=== PATIENT | female | born 1955 | race Caucasian/White ===

== ENCOUNTER → 2018-09-03 14:20 | Outpatient (CLI) | payer BC, SELFPAY ==
--- NOTE | 2018-09-03 14:22 | BI_ITS ---
MAMMOGRAPHY - BILATERAL SCREENING REASON FOR EXAM: Female, 62 years old. Routine annual screening examination. PERTINENT HISTORY: Mother with breast cancer. Aunt with breast cancer. Prior right excisional breast biopsy and right stereotactic breast biopsy. TECHNIQUE: Digital bilateral breast derick (3D mammographic acquisition) in the CC and MLO projections. 2-D mediolateral oblique (MLO) and craniocaudad (CC) views of both breasts were obtained. CAD: Full Field Digital Mammography with Computer Added Detection was performed. COMPARISON: Comparison is made with prior study date is February 15, 2017 and April 27, 2015. FINDINGS: Breast Composition: There are scattered areas of fibroglandular density. There are no dominant masses or suspicious calcifications. Once again, a tissue clip marker is seen within a small nodular density in the upper lateral aspect of the right breast. A tissue clip marker is also seen in the superior retroareolar region of the right breast. There has been no change. Stable appearance of the right axillary lymph nodes. No other significant abnormalities are identified. There has been no significant change since the prior study. BI/SCREENING MAMM (CAD), BILAT IMPRESSION: Stable bilateral screening mammogram. Yearly follow-up mammogram recommended. (A) ASSESSMENT CATEGORY: BIRADS Category 2: Benign. A letter regarding these results will be sent to the patient by the facility within 30 days. Approximately 10% of breast cancers are not detected by mammography. A normal mammogram should not delay biopsy of a clinically suspicious abnormality. [id number] Electronically Signed: Ej Mckeon, at 8:28 EDT , Service support ,
== END ==
PROVIDERS: Family Provider Family Medicine; PCP Family Medicine; Visit Provider Family Medicine
DX: Z12.31 Encounter for screening mammogram for malignant neoplasm of breast (principal)
CPT/HCPCS: 77063; 77067

== ENCOUNTER → 2020-03-30 15:55 | Outpatient (CLI) | payer MEDICARE, OTHER, SELFPAY ==
[2020-03-30 15:32] VITALS: BMI 25.9
[2020-03-30 17:23] LABS: Calcium,Total 11.9 mg/dL (8.5-10.1)
[2020-03-30 17:30] LABS: Vitamin D,25 Hydroxy 34.6 ng/mL
== END ==
PROVIDERS: PCP Family Medicine; Referring Provider Internal Medicine Endocrinology, Diabetes & Metabolism; Visit Provider Internal Medicine Endocrinology, Diabetes & Metabolism
DX: E21.3 Hyperparathyroidism, unspecified (principal); E55.9 Vitamin D deficiency, unspecified
CPT/HCPCS: 36415; 82306; 82310

== ENCOUNTER → 2020-04-22 13:24 | Outpatient (CLI) | payer MEDICARE, OTHER, SELFPAY ==
[2020-03-30 15:32] VITALS: BMI 25.9
[2020-04-22] MEDS: 0.9% NaCl Peripheral Flush Adult/Peds IV (13:35)
[2020-04-22] MEDS: 0.9% NaCl IVPB Med Flush (250 mL) 15 ML IV (13:35)
[2020-04-22 13:38] VITALS: BP 137/74; PULSE 95; RESP 18; TEMP 36.4; O2SAT 96; BMI 26.1
[2020-04-22] MEDS: Zoledronic Acid 5 MG 100 ML 300 MG IV (14:11)
[2020-04-22 14:35] VITALS: BP 130/70; PULSE 80; RESP 18; TEMP 36; O2SAT 98
== END ==
PROVIDERS: PCP Family Medicine; Referring Provider Internal Medicine Endocrinology, Diabetes & Metabolism; Visit Provider Internal Medicine Endocrinology, Diabetes & Metabolism
DX: E83.52 Hypercalcemia (principal)
CPT/HCPCS: 96365; J7050; A4216; J3489

== ENCOUNTER → 2021-03-02 11:05 | Outpatient (CLI) | payer MEDICARE, OTHER, SELFPAY ==
[2021-03-02 13:04] LABS: Vitamin D,25 Hydroxy 35.6 ng/mL
[2021-03-02 13:12] LABS: ALB/GLOB Ratio 1.2 RATIO (0.9-2.4); AST(SGOT) 24 U/L (15-37); Alanine Aminotransfer ALT/SGPT 42 U/L (13-56); Albumin, Serum 4.3 g/dL (3.2-5.0); Alkaline Phosphatase 39 U/L (45-117); Anion Gap 8 (5-15); BUN 10 mg/dL (7-18); BUN/Creat Ratio 9.8 RATIO (10-20); Calcium,Total 10.1 mg/dL (8.5-10.1); Chloride 101 mmol/L (98-107); Creatinine, Serum 1.02 mg/dL (0.55-1.02); EST Glomerular Filtration Rate 57 mL/min (>60); Est Glom Filt Rate - Afr Amer 69 mL/min (>60); Globulin 3.7 g/dL (2.2-4.2); Glucose 153 mg/dL (74-106); Potassium 4.3 mmol/L (3.5-5.1); Sodium Level 134 mmol/L (136-145)
[2021-03-02 13:13] LABS: PTHIN 68.2 pg/mL (18.4-80.1)
== END ==
PROVIDERS: PCP Family Medicine; Referring Provider Internal Medicine Endocrinology, Diabetes & Metabolism; Visit Provider Internal Medicine Endocrinology, Diabetes & Metabolism
DX: E21.3 Hyperparathyroidism, unspecified (principal); E55.9 Vitamin D deficiency, unspecified
CPT/HCPCS: 36415; 80053; 82306; 83970

== ENCOUNTER 2021-04-29 10:22 | Inpatient (IN) | payer MEDICARE, OTHER, SELFPAY ==
[2021-04-29] VITALS (11 sets, daily range): BP systolic 113–162; BP diastolic 59–89; PULSE 84–125; RESP 16–18; TEMP 36.6–37.1; O2SAT 94–99; BMI 25.7; BMI 26.0
--- NOTE | 2021-04-29 11:27 | CT_ITS ---
STUDY: CT BRAIN WITHOUT CONTRAST REASON FOR EXAM: Female, 65 years old. confusion RADIATION DOSAGE (If Supplied By Facility): CTDIvol = ( 44.99 ) mGy, DLP = ( 779.24 ) mGycm TECHNIQUE: Transaxial CT imaging of the brain was performed without administration of intravenous contrast material. Individualized dose optimization techniques were used for this CT. COMPARISON: No relevant priors. FINDINGS: Normal soft tissue structures. Normal calvarium. There is mild cerebral atrophy with widening of the extra-axial spaces and ventricular dilatation. There are areas of decreased attenuation within the white matter tracts of the supratentorial brain, consistent with microvascular disease changes. Normal basal ganglia and thalami. Normal brainstem. Normal cerebellum. There is no intracranial hemorrhage. Focal area of diminished density and loss of perez-white differentiation in the left posterior parietal lobe. No associated hemorrhage. Normal visualized paranasal sinuses. CT/Brain/Head without Contrast IMPRESSION: 1. Posterior left MCA territory subacute or chronic infarction without hemorrhage. No prior comparison study. 2. Central parenchymal volume loss. White matter changes that are nonspecific but most commonly associated with chronic small vessel ischemic disease. Electronically Signed: Vega Cuadra MD ([place]) at 12:39 EST , Service support ,
--- NOTE | 2021-04-29 11:31 | EKG12_ITS ---
Test Reason : Blood Pressure : / mmHG Vent. Rate : 096 BPM Atrial Rate : 096 BPM P-R Int : 158 ms QRS Dur : 116 ms QT Int : 374 ms P-R-T Axes : 070 -23 075 degrees QTc Int : 472 ms Normal sinus rhythm Normal ECG Confirmed by NIALL ZAMARRIPA MD ([id number]), school photograph editor RICARDO KUMAR ([id number]) on 05/03/2021 8:54:14 AM Referred By: NAGI Confirmed By:NIALL ZAMARRIPA MD
--- NOTE | 2021-04-29 11:36 | EDS_ITS ---
HPI History of Present Illness Chief Complaint: Confusion Informant: patient Onset/Context/Timing Onset: Days (5) Context: Gradual Onset Timing: Continuous Quality and Location: Positive for Slurred Speech and - (confused) Onset: gradually Current Severity: Severe Maximum Severity: Severe Worsened by: n/a Relieved by: n/a Associated Symptoms Associated Symptoms: Positive for Headache and Chest Pain (a little bit but unk when; not now); Negative for Nausea and Vomiting Narrative Narrative: Patient has had some trouble speaking and has been confused for the past 5 days. This is her first visit to a healthcare provider for this issue. History is limited due to the patient being confused with most questions even review of systems. Patient lives with her who noticed it first. Daughter accompanies, she states she last saw her normal 7 days ago, and then the first time she saw her abnormal was just 2 days ago. She states she had surgery on her parathyroid glands 5 months ago or so and has been on thyroid medication. [facility] Medical History (Updated 04/29/21 @ 13:[address] Fabio Piper MD) Arthritis Breast cyst High cholesterol High triglycerides Hypothyroidism Type 2 diabetes mellitus without complications Home Medications cholecalciferol (vitamin D3) 50 mcg (2,000 unit) capsule 50 mcg PO DAILY 03/30/20 [History Last Taken Unknown] fenofibrate micronized 134 mg capsule 134 mg PO DAILY 03/30/20 [History Last Taken Unknown] glipizide 2.5 mg tablet, extended release 24 hr 2.5 mg PO DAILY 03/30/20 [History Last Taken Unknown] levothyroxine 150 mcg tablet 150 mcg PO DAILY 03/30/20 [History Last Taken Unknown] lisinopril 5 mg tablet 5 mg PO DAILY 03/30/20 [History Last Taken Unknown] metformin 1,000 mg tablet 1,000 mg PO BID 03/30/20 [History Last Taken Unknown] simvastatin 40 mg tablet 40 mg PO DAILY 03/30/20 [History Last Taken Unknown] zoledronic acid 5 mg/100 mL in mannitol 5 %-water intravenous piggybck 1 ea .ROUTE ONCE #100 ml 04/20/20 [Rx Last Taken Unknown] Allergy/AdvReac Type Severity Reaction Status Date / Time No Known Allergies Allergy Verified 04/29/21 10:26 Family History Sister Thyroid disorder Cancer Diabetes Brother Myocardial infarction Bleeding disorder Cancer Diabetes Mother Breast cancer Other Arthritis Colon cancer Heart disease High cholesterol Surgical History History of appendectomy Social History Smoking Status: Light Smoker (<10/day) alcohol intake: current substance use type: does not use what type of physical activity do you participate in: none ROS ROS ED Review of Systems ROS Unobtainable: due to mental status Constitutional Constitutional ED: Denies chills or fever(s) Eyes Eyes: Denies change in vision or diplopia Cardiovascular Cardiovascular: Reports as per HPI and chest pain Respiratory/Chest Respiratory/Chest: Reports cough; Denies dyspnea Gastrointestinal Gastrointestinal: Denies abdominal pain, nausea or vomiting Genitourinary Genitourinary ED: Denies dysuria or hematuria Musculoskeletal Musculoskeletal: Denies back pain or neck pain Integumentary Denies abscess or rash Neurologic Neurologic: Reports headache(s); Denies paresthesias or weakness Psychiatric Psychiatric: Denies suicidal thoughts EXAM Physical Exam Const Vital Signs: 04/29/21 10:23 04/29/21 12:46 04/29/21 13:25 Temperature 98 F 98.2 F 98.2 F Temperature Source Temporal Oral Oral Pulse Rate 125 H 89 Respiratory Rate 18 17 Blood Pressure 162/89 H 113/83 H Blood Pressure Mean 113 93 Pulse Ox 97 97 99 Oxygen Delivery Method Room Air Room Air Room Air Positive well nourished and well developed General Appearance ED: well developed and NAD HEENT Reports moist mucous membranes normocephalic and atraumatic Eyes PERRL and EOMs intact bilaterally Neck full ROM, No nuchal rigidity, no lymphadenopathy, supple and no meningeal signs Resp normal respiratory effort and clear to auscultation bilaterally Cardio regular rate, regular rhythm and no murmurs Rate: tachycardic GI non-tender and non-distended Auscultation: normoactive bowel sounds Palpation: soft Back/Spine no CVA tenderness General Back: other FROM Extremity normal to inspection General Extremety ED: Negative for edema, pulses abnormal or tenderness General Extremity: Negative for edema or pulses abnormal Neuro CN's II-XII intact bilaterally and no sensory deficits noted Neuro Narrative: Mild expressive aphasia and dysarthria Sensorium / Orientation: awake, alert and oriented to person; Negative for oriented to time Motor Exam: strength 5/5 throughout Skin no rashes or lesions noted and no wounds STROKE Vital Signs/Narrative: Vital Signs Temp Pulse Resp BP Pulse Ox 04/29/21 13:25 98.2 F 89 17 113/83 H 99 04/29/21 12:46 98.2 F 97 04/29/21 10:23 98 F 125 H 18 162/89 H 97 NIHSS Initial: 1a Level of Consciousness: 0 1b LOC Questions (Score 2 if aphasic/stupor): 2 1c LOC Commands (Only score 1st attempt): 0 2 Best Gaze (If aphasic, use reflexive mvmts.): 0 3 Visual: 0 4 Facial Palsy: 0 5 Motor Arm Right (UN = amputation/fusion): 0 5 Motor Arm Left: 0 6 Motor Leg Right: 0 6 Motor Leg Left: 0 7 Limb ataxia (Only + if out of proportion): 0 8 Sensory (Aphasia/stupor=0 or 1, coma=2): 0 9 Best Language: 1 10 Dysarthria (mute, coma=2, intubated=UN): 1 11 Extinction and Inattention (only scored if +): 0 Total Score: 4 MDM MDM MDM Narrative Medical decision making narrative: CT shows left posterior MCA infarct which is likely causing these symptoms. No signs of any acute infection causing sepsis although her lactate was nonspecifically elevated. Will admit for further care and diagnostics. Lab Data Attestation: I reviewed the patient's lab results. Labs: Laboratory Results - last 24 hr 04/29/21 04/29/21 04/29/21 12:15 12:15 12:15 WBC 10.3 RBC 4.28 Hgb 10.7 L Hct 34.9 L MCV 81.5 MCH 25.0 L MCHC 30.7 L RDW Std Deviation 49.1 H RDW Coeff of Apple 16.8 H Plt Count 501 H MPV 9.4 Immature Gran % (Auto) 0.500 Neut % (Auto) 70.7 H Lymph % (Auto) 21.6 Stephens % (Auto) 6.0 Eos % (Auto) 0.7 Baso % (Auto) 0.5 Absolute Neuts (auto) 7.3 Absolute Lymphs (auto) 2.22 Nucleated RBC % 0 PT 12.0 INR 0.9 APTT 27.4 Sodium 132 L Potassium 3.9 Chloride 99 Carbon Dioxide 25.0 Anion Gap 8 BUN 11 Creatinine 1.10 H Estim Creat Clear Calc 44.66 Est GFR (MDRD) Af Amer 64 Est GFR (MDRD) Non-Af 53 L BUN/Creatinine Ratio 10.0 Glucose 160 H Lactic Acid Calcium 10.2 H Total Bilirubin 0.40 AST 24 ALT 34 Alkaline Phosphatase 37 L Troponin I High Sens 4 Total Protein 7.9 Albumin 4.2 Globulin 3.7 Albumin/Globulin Ratio 1.1 TSH 0.30 L Urine Color Urine Clarity Urine pH Ur Specific [place] Urine Protein Urine Glucose (UA) Urine Ketones Urine Occult Blood Urine Nitrite Urine Bilirubin Urine Urobilinogen Ur Leukocyte Esterase Urine RBC Urine WBC Ur Squamous Epith Cells Urine Bacteria Urine Mucus 04/29/21 04/29/21 12:15 12:15 WBC RBC Hgb Hct MCV MCH MCHC RDW Std Deviation RDW Coeff of Apple Plt Count MPV Immature Gran % (Auto) Neut % (Auto) Lymph % (Auto) Stephens % (Auto) Eos % (Auto) Baso % (Auto) Absolute Neuts (auto) Absolute Lymphs (auto) Nucleated RBC % PT INR APTT Sodium Potassium Chloride Carbon Dioxide Anion Gap BUN Creatinine Estim Creat Clear Calc Est GFR (MDRD) Af Amer Est GFR (MDRD) Non-Af BUN/Creatinine Ratio Glucose Lactic Acid 3.7 H* Calcium Total Bilirubin AST ALT Alkaline Phosphatase Troponin I High Sens Total Protein Albumin Globulin Albumin/Globulin Ratio TSH Urine Color Yellow Urine Clarity Clear Urine pH 6.0 Ur Specific [place] 1.020 Urine Protein 15 H Urine Glucose (UA) Normal Urine Ketones Negative Urine Occult Blood 10 H Urine Nitrite Positive H Urine Bilirubin Negative Urine Urobilinogen Normal Ur Leukocyte Esterase 100 H Urine RBC 0 SEEN Urine WBC 0-5 SEEN Ur Squamous Epith Cells 0 SEEN Urine Bacteria 2+ Urine Mucus 0 SEEN Radiography Diagnostic Testing: Clinical Impression(s) from Imaging Studies Brain CT 04/29/21 11:27 IMPRESSION: 1. Posterior left MCA territory subacute or chronic infarction without hemorrhage. No prior comparison study. 2. Central parenchymal volume loss. White matter changes that are nonspecific but most commonly associated with chronic small vessel ischemic disease. Electronically Signed: Vega Cuadra MD ([place]) at 12:39 EST , Service support , Chest X-Ray 04/29/21 12:30 IMPRESSION: Nonacute portable x-ray examination of the chest. Electronically Signed: Vega Cuadra MD ([place]) at 12:43 EST , Service support , EKG Initial EKG: Attestation: I personally reviewed and interpreted this EKG as follows: Interpretation: Sinus Rhythm and No Acute Injury Pattern Comments: normal EKG Stroke Documentation Questions Stroke Team Activated: No (timing) IV Alteplase (t-PA) Administered: No (timing) Discharge Plan Dx/Rx/DC Orders Clinical Impression: Acute ischemic stroke Disposition Disposition: Acute Care Hospital [facility]
--- NOTE | 2021-04-29 12:09 | CM.ED ---
Addendum entered by Barbara Loving 04/29/21 19:47: Visitor in the room was patient's daughter. Barbara AVILES Original Note: LILIANA Note Referral Reason: No PCP Referral Source: Case Find SW met with patient. Per visitor in the room with patient, the PCP who patient had gone to, Dr. Dill, had retired so patient does not have a PCP. LILIANA provided patient with a 2020 Healthcare Provider. Plan:Provided with 2020 [facility] Healthcare Provider Directory Barbara AVILES
--- NOTE | 2021-04-29 12:30 | RAD_ITS ---
STUDY: X-RAY CHEST REASON FOR EXAM: Female, 65 years old. CONFUSION STARTING LAST WEEK AND GETTING WORSE TECHNIQUE: AP COMPARISON: None. FINDINGS: The lungs are clear and expanded. There is no demonstrated pleural abnormality. Normal size heart. Normal mediastinum and hetal. Normal visualized pulmonary arteries. There is atherosclerotic calcification of the aortic arch with tortuosity. Normal visualized thoracic spine. Normal visualized ribs, clavicles, and shoulders. There is no demonstrated abnormality of the visualized soft tissue structures of the upper abdomen. RAD/Chest 1 View (Portable) IMPRESSION: Nonacute portable x-ray examination of the chest. Electronically Signed: Vega Cuadra MD ([place]) at 12:43 EST , Service support ,
[2021-04-29 12:44] LABS: Mucous, Urine 0 SEEN /hpf (<or=2+); Red Blood Cells-Urine 0 SEEN /hpf (0-5); Squamous Epithelial Cells - UA 0 SEEN /hpf (5-10)
[2021-04-29] MEDS: 0.9% Normal Saline 1,000 ML 150 ML IV (12:46)
[2021-04-29 12:50] LABS: Absolute Lymphocyte Count 2.22 X10^3/uL (0.83-4.51); Absolute Neutrophil Count 7.3 X10^3/uL (2.0-7.7); Basophil# 0.05 X10^3/uL; Basophil% 0.5 % (0-1); Eosinophil# 0.07 X10^3/uL; Eosinophils% 0.7 % (0-5); Hematocrit 34.9 % (37-47); Hemoglobin 10.7 g/dL (12.0-15.0); Lymphocyte # 2.22 X10^3/ul (0.83-4.51); Lymphocyte % 21.6 % (19-41); Mean Corp Hgb Conc 30.7 g/dL (32-36); Mean Corpuscular Volume 81.5 fL (81-99); Mean Platelet Vol. 9.4 fl (6.2-12.0); Monocyte# 0.62 X10^3/uL; NRBC Flagged by Analyzer 0 % (0-5); Neutrophil # 7.29 X10^3/uL (2.7-7.7); Neutrophil % 70.7 % (47-70); Platelet Count 501 K/mm3 (150-450); RBC Distribution Width CV 16.8 % (11.6-14.6); RBC Distribution Width SD 49.1 fl (35.1-43.9); Red Blood Count 4.28 M/mm3 (4.2-5.4); White Blood Count 10.3 K/mm3 (4.4-11.0)
[2021-04-29 12:55] LABS: International Normalized Ratio 0.9
[2021-04-29 12:56] LABS: Color, Urine Yellow (Yellow); Glucose, Dipstick Normal (Normal); Ketone-Dipstick Negative (Negative); Leukocyte Esterase-Dipstick 100 /ul (Negative); Nitrite-Dipstick Positive (Negative); Occult Blood-Urine 10 /ul (Negative); Partial Thromboplast Time 27.4 Seconds (24.1-36.2); Protein-Dipstick 15 mg/dl (Negative); Urine Bilirubin Dipstick Negative (Negative); Urine Clarity Clear (Clear); Urine Urobilinogen Normal (Normal)
[2021-04-29 12:59] LABS: Bacteria 2+ /hpf (None Seen); White Blood Cells 0-5 SEEN /hpf (0-5)
[2021-04-29 13:01] LABS: Lactic Acid 3.7 mmol/L (0.4-1.9)
[2021-04-29 13:13] LABS: ALB/GLOB Ratio 1.1 RATIO (0.9-2.4); AST(SGOT) 24 U/L (15-37); Alanine Aminotransfer ALT/SGPT 34 U/L (13-56); Albumin, Serum 4.2 g/dL (3.2-5.0); Alkaline Phosphatase 37 U/L (45-117); Anion Gap 8 (5-15); BUN 11 mg/dL (7-18); Calcium,Total 10.2 mg/dL (8.5-10.1); Chloride 99 mmol/L (98-107); EST Glomerular Filtration Rate 53 mL/min (>60); Est Glom Filt Rate - Afr Amer 64 mL/min (>60); Estimated Creatinine Clearance 44.66 ml/min; Globulin 3.7 g/dL (2.2-4.2); Glucose 160 mg/dL (74-106); Potassium 3.9 mmol/L (3.5-5.1); Protein, Total 7.9 g/dL (6.4-8.2); Sodium Level 132 mmol/L (136-145); Troponin-I HS 4 pg/mL (3.0-54.0)
--- NOTE | 2021-04-29 13:28 | HP.PCM.HOS_ITS ---
HPI - General General Date of Admission: 04/29/21 Date of Service: 04/29/21 Chief Complaint: Confusion. HPI Narrative The patient is a 65 y/o F w/ PMHx: Diabetes mellitus type II, HTN, HLD, Hx parathyroidectomy w/ Hypothyroidism who presents to the [facility] ED on 04/29/21 with history of onset confusion, expressive aphasia, dysarthria and confusion which started this prior Sunday and became progressively more pronounced when family eventually convinced her to present to the ED for evaluation. In the ED she is able to answer questions but appears extremely frustrated and has word finding difficulties. Patient does report that she has a mild dull constant generalized headache over the last week. Work-up in the ED included T 98, heart rate initially 125 with most recent repeat 89, BP initially 162/89 with most recent repeat 113/83, respiratory rate 18, 97 to 99% on room air, unremarkable coags, CMP with sodium 132, BUN/creatinine 11/1.10, glucose 160, lactic acid 3.7, calcium 10.2, alk phos 37 otherwise not marked appearing, high-sensitivity initial troponin 4, TSH 0.30, urinalysis with specific gravity elevated 1.020, protein 15, negative ketone, occult blood 10, positive nitrate, 100 leukocyte esterase with 0-5 urine WBCs with 2+ urine bacteria, blood culture x2 pending per ED, urine culture pending per ED, negative rapid Covid antigen, negative rapid influenza, chest x-ray with no acute cardiopulmonary findings, CT head with posterior left MCA territory subacute or chronic infarction without hemorrhage with no comparison, central parenchymal volume loss with white matter changes nonspecific but commonly associate with chronic small vessel ischemic disease. Initial ED NIHSS 4 for LOC questions, Best language as well as dysarthria. [facility] Medical History (Updated 04/29/21 @ 14:[address] Chio Valero MD) Arthritis Breast cyst High cholesterol High triglycerides HTN (hypertension) Hypothyroidism Tobacco use Type 2 diabetes mellitus without complications Home Medications cholecalciferol (vitamin D3) 50 mcg (2,000 unit) capsule 50 mcg PO DAILY 03/30/20 [History Last Taken Unknown] fenofibrate micronized 134 mg capsule 134 mg PO DAILY 03/30/20 [History Last Taken Unknown] glipizide 2.5 mg tablet, extended release 24 hr 2.5 mg PO DAILY 03/30/20 [History Last Taken Unknown] levothyroxine 150 mcg tablet 150 mcg PO DAILY 03/30/20 [History Last Taken Unknown] lisinopril 5 mg tablet 5 mg PO DAILY 03/30/20 [History Last Taken Unknown] metformin 1,000 mg tablet 1,000 mg PO BID 03/30/20 [History Last Taken Unknown] simvastatin 40 mg tablet 40 mg PO DAILY 03/30/20 [History Last Taken Unknown] zoledronic acid 5 mg/100 mL in mannitol 5 %-water intravenous piggybck 1 ea .ROUTE ONCE #100 ml 04/20/20 [Rx Last Taken Unknown] Allergy/AdvReac Type Severity Reaction Status Date / Time No Known Allergies Allergy Verified 04/29/21 10:26 Family History Sister Thyroid disorder Cancer Diabetes Brother Myocardial infarction Bleeding disorder Cancer Diabetes Mother Breast cancer Other Arthritis Colon cancer Heart disease High cholesterol other (Patient denies any marked paternal family history including HD, DM, CA.) Surgical History (Updated 04/29/21 @ 14:[address] Chio Valero MD) History of appendectomy S/P parathyroidectomy Social History (Updated 04/29/21 @ 14:[address] Chio Valero MD) household members: spouse Smoking Status: Current every day smoker tobacco type: cigarettes Smoking packs per day: 0.75 Smoking cigarettes per day: 15.0 alcohol intake: current alcohol intake frequency: holidays/special occasions only substance use type: does not use what type of physical activity do you participate in: none ROS ROS Narrative Admission Review of Systems: CONSTITUTIONAL: No weight loss, fever, chills, weakness or fatigue. HEENT: + Headache. Eyes: No visual loss, blurred vision, double vision or yellow sclerae. Ears, Nose, Throat: No hearing loss, sneezing, congestion, runny nose or sore throat. SKIN: No rash or itching, lesions, wounds. CARDIOVASCULAR: No chest pain, chest pressure or chest discomfort, palpitations, edema, orthopnea, syncopal events. RESPIRATORY: No shortness of breath, cough or sputum, wheezing, hemoptysis. GASTROINTESTINAL: + anorexia, No nausea, vomiting or diarrhea, abdominal pain, melena, BRBPR. GENITOURINARY: No dysuria, frequency, urgency or retention. NEUROLOGICAL: + Expressive aphasia, altered speech, confusion, headache, No dizziness, syncope, paralysis, ataxia, numbness or tingling in the extremities, focal weakness, change in bowel or bladder control, seizure. MUSCULOSKELETAL: + muscle, back pain, joint pain or stiffness. HEMATOLOGIC: + anemia, bleeding or bruising. LYMPHATICS: No enlarged nodes. No history of splenectomy. PSYCHIATRIC: No history of depression or anxiety. ENDOCRINOLOGIC: No reports of sweating, cold or heat intolerance. No polyuria or polydipsia. ALLERGIES: No history of asthma, hives, eczema or rhinitis. Vital Signs Vital Signs Vital Signs: 04/29/21 10:23 04/29/21 12:46 04/29/21 13:25 Temperature 98 F 98.2 F 98.2 F Temperature Source Temporal Oral Oral Pulse Rate 125 H 89 Respiratory Rate 18 17 Blood Pressure 162/89 H 113/83 H Blood Pressure Mean 113 93 Pulse Ox 97 97 99 Oxygen Delivery Method Room Air Room Air Room Air Weight Weight: 155 lb Body Mass Index (BMI) 25.7 Physical Exam Narrative Physical Examination: General: Awake, alert, oriented x 3 but it does take her a significant amount of time to give answers with notable expressive aphasia, mildly stuttered/altered speech, remains cooperative, following commands, seated upright in the ED bed, tearful with her difficulty with her words. Skin: Normal color, normal turgor, no icterus, no cyanosis. HEENT: AT/NC, EOMI, PERRLA, dry MM, no carotid bruits or JVD noted. Lungs: CTA bilaterally, moderate effort, mild decrease BL bases, no rales, ronchi or wheezing. Heart: Regular rate and rhythm; no gallop, rub audible. Abdomen: Soft, overweight, NTTP, ND, normal BS, no HSM. Extremities: No cyanosis, clubbing, or edema. Neurological: Patient awake, alert, oriented as noted, cognitive function not baseline intact; pupils equally reactive to light and accommodation, cranial nerves II-XII grossly normal, moving all 4 extremities, no focal deficits, strength preserved, FTN and HTS appropriate, denies any subjective paresthesia/numbness, notable expressive aphasia, stuttering/slurred speech. Psychiatric: Affect appears frustrated, no acute evidence of depressive or anxiety feelings. Results Lab / Micro Data Result Diagrams: 04/29/21 12:15 04/29/21 12:15 Labs: Laboratory Results - last 24 hr 04/29/21 12:15: WBC 10.3, RBC 4.28, Hgb 10.7 L, Hct 34.9 L, MCV 81.5, MCH 25.0 L , MCHC 30.7 L, RDW Std Deviation 49.1 H, RDW Coeff of Apple 16.8 H, Plt Count 501 H, MPV 9.4, Immature Gran % (Auto) 0.500, Neut % (Auto) 70.7 H, Lymph % (Auto) 21.6, [place] % (Auto) 6.0, Eos % (Auto) 0.7, Baso % (Auto) 0.5, Absolute Neuts (auto) 7.3, Absolute Lymphs (auto) 2.22, Nucleated RBC % 0 04/29/21 12:15: PT 12.0, INR 0.9, APTT 27.4 04/29/21 12:15: Sodium 132 L, Potassium 3.9, Chloride 99, Carbon Dioxide 25.0, Anion Gap 8, BUN 11, Creatinine 1.10 H, Estim Creat Clear Calc 44.66, Est GFR (MDRD) Af Amer 64, Est GFR (MDRD) Non-Af 53 L, BUN/Creatinine Ratio 10.0, Glucose 160 H, Calcium 10.2 H, Total Bilirubin 0.40, AST 24, ALT 34, Alkaline Phosphatase 37 L, Troponin I High Sens 4, Total Protein 7.9, Albumin 4.2, Globulin 3.7, Albumin/Globulin Ratio 1.1, TSH 0.30 L 04/29/21 12:15: Lactic Acid 3.7 H* 04/29/21 12:15: Urine Color Yellow, Urine Clarity Clear, Urine pH 6.0, Ur Specific [place] 1.020, Urine Protein 15 H, Urine Glucose (UA) Normal, Urine Ketones Negative, Urine Occult Blood 10 H, Urine Nitrite Positive H, Urine Bilirubin Negative, Urine Urobilinogen Normal, Ur Leukocyte Esterase 100 H, Urine RBC 0 SEEN, Urine WBC 0-5 SEEN, Ur Squamous Epith Cells 0 SEEN, Urine Bacteria 2+, Urine Mucus 0 SEEN Micro: Microbiology 04/29/21 12:02 Mucosa - Nasopharyngeal Influenza Types A,B Direct FA (TALA) - Final 04/29/21 12:02 Nasal Secretion SARS-CoV-2 Antigen (Rapid) - Final Radiology Impression Brain CT 04/29/21 11:27 IMPRESSION: 1. Posterior left MCA territory subacute or chronic infarction without hemorrhage. No prior comparison study. 2. Central parenchymal volume loss. White matter changes that are nonspecific but most commonly associated with chronic small vessel ischemic disease. Electronically Signed: Vega Cuadra MD (Brooks) at 12:39 EST , Service support , Chest X-Ray 04/29/21 12:30 IMPRESSION: Nonacute portable x-ray examination of the chest. Electronically Signed: Vega Cuadra MD (Brooks) at 12:43 EST , Service support , Assessment & Plan Assessment/Plan (1) Acute ischemic stroke: PLAN: The patient is a 65 y/o F w/ PMHx: Diabetes mellitus type II, HTN, HLD, Hx parathyroidectomy w/ Hypothyroidism who presents to the [facility] ED on 04/29/21 with history of onset confusion, expressive aphasia, dysarthria and c onfusion which started this prior Sunday and became progressively more pronounced when family eventually convinced her to present to the ED for evaluation. #1. Acute Encephalopathy, Expressive Aphasia, Dysarthria, Multifactorial, secondary to #1 Subacute Posterior left MCA territory and #2: Will admit to PCU, will obtain MRI Brain, MRA Head and carotid US, ECHO, PT/OT/Speech/Nutrition evaluation per protocol. Will consult Neurology for evaluation once further work-up completed. Given timeline will treat patient HTN, maintain on asa, statin, fall precautions. Mag, TSH, HgbA1c, FLP pending. #2. Acute Urinary Tract Infection: UA upon ED evaluation remarkable, pending UCx, continue IVFs, monitor I/Os, continue IV Rocephin w/ transition as able pending sensitivities and speciation. Bld cx x 2 obtained in the ED. #3. Lactic acidosis with suspected mild acute renal insufficiency, secondary to poor oral intake, hypokalemia: Admission sodium mildly decreased 132, BUN/creat 04/04.10 although no comparison with lactic acid 3.7, suspect with recent stroke patient has had poor intake especially given urinalysis with elevated specific [place] 1.020. Will judiciously hydrate and trend per facility protocol. #4. Diabetes mellitus type II: Hold oral home regimen, hemoglobin A1c requested especially given acute presentation #1, if remains appropriate ADA diet, accu checks w/ ISS. #5. Hypertension: Continue home regimen including lisinopril with adjustments as needed to achieve appropriate BP parameters given timeline, PRN hydralazine. #6. Hypothyroidism with abnormal TSH: Patient with history of parathyroidectomy with falling initiation of Synthroid regimen. Will continue home synthroid regimen pending further work-up, TSH 0.30, free T4 requested. #7. Normocytic anemia: Unclear if chronic, no recent comparisons, admission hemoglobin 10.7, Fe panel, ferritin, vitamin B12, folic acid pending. #8. Hyperlipidemia: Continue home statin regimen. AM FLP. #9. Tobacco Abuse: Encouraged cessation, inpatient consultation per RT, NR if desired. #10. DVT prophylaxis: SCDs, Lovenox. #11. CODE status: Patient HCPSARA is her and living will is currently in place per ED discussions with daughter present. Discussed CODE status at length including difference between FULL code, DNR-CCA and DNR-CC status. Following discussions about the differences in these status, requested Full Code status. Advanced Care Planning Face to Face Time: 16 minutes. Charges/Coding Visit Charges Inpatient E&M: 88079 Init Hosp L3 Procedures Hospitalists Procedures: 20870 Advncd Care Plan 30 Min
[2021-04-29 14:05] LABS: Magnesium 1.9 mg/dL (1.6-2.6)
[2021-04-29 14:40] LABS: Ferritin 8 ng/mL (8-252); Iron 30 ug/dL (50-170); Iron Binding Capacity,Total 626 ug/dL (250-450); PERCENT IRON SATURATION 4.8 % (15.0-55.0)
--- NOTE | 2021-04-29 15:47 | ECHOD_ITS ---
Reason For Study: CVA Procedure This was a 2D Doppler, Color Flow transthoracic echocardiogram. Bubble study performed. Exam performed portable in patient room. Left Ventricle Normal left ventricle. The estimated ejection fraction is 55-60 %. Right Ventricle Normal right ventricle. Normal systolic function. Atria Normal left atrium. Normal right atrium. Intact atrial septum. Mitral Valve The mitral valve is structurally normal. No prolapse or stenosis seen. No mitral valve insufficiency. Tricuspid Valve Normal tricuspid valve. No tricuspid valve insufficiency. Aortic Valve Mild diffuse aortic valve calcification. Great Vessels Normal aortic root. Pericardium/Pleural No pericardial effusion. Medication Performed a rapid injection of agitated mix of 9 cc saline and 1cc air to assess for atrial septal defect. MMode/2D Measurements & Calculations LVIDd: 4.3 cm IVSd: 0.78 cm LA dimension: 2.8 cm LVIDs: 3.0 cm LVPWd: 0.88 cm FS: 31.2 % LAV(MOD-bp): 44.7 ml LA A4 area: 16.6 cm2 RA A4 area: 11.7 cm2 LAV(MOD-bp) Indexed: 25.5 ml/m2 LAV(MOD-sp2): 44.1 ml LAV(MOD-sp4): 40.5 ml Time Measurements MV dec time: 0.18 sec Doppler Measurements & Calculations MV E max bryon: 86.8 cm/sec Lat Peak E' Bryon: 6.5 cm/sec Med Peak E' Bryon: 6.5 cm/sec MV A max bryon: 116.5 cm/sec E/E' lat: 13.5 E/E' med: 13.3 MV E/A: 0.75 MV V2 max: 128.1 cm/sec MV P1/2t max bryon: 113.6 cm/sec Ao V2 max: 153.1 cm/sec MV max P.6 mmHg MV P1/2t: 75.3 msec Ao max P.4 mmHg MV V2 mean: 72.7 cm/sec MV dec slope: 442.3 cm/sec2 MV mean P.5 mmHg MVA(P1/2t): 2.9 cm2 MV V2 VTI: 24.2 cm LV V1 max: 110.4 cm/sec PA V2 max: 92.5 cm/sec LV V1 max P.9 mmHg ECHO/Echo Complete Interpretation Summary The estimated ejection fraction is 55-60 %. Normal LV systolic function Buble study is Negative Ordering Physician: Chio Valero Referring Physician: NO PCP NOTED Performed By: Cyril Davila RCS
--- NOTE | 2021-04-29 15:47 | CDU_ITS ---
Reason For Study: CVA Rt. Velocities/BP Lt. Velocities/BP Prox CCA 102.1/30.4 cm/sec. Prox CCA 55.2/10.8 cm/sec. Mid CCA 99.5/36.9 cm/sec. Mid CCA 38.8/10.2 cm/sec. Dist CCA 77.3/25.2 cm/sec. Dist CCA 26.76.9 cm/sec. Prox ICA 81.2/26.5 cm/sec. Prox ICA 413.8/117.4 cm/sec. Mid ICA 104.7/36.9 cm/sec. Mid ICA 125.1/8.5 cm/sec. Dist ICA 94.3/39.5 cm/sec. Dist ICA 86.3/18.9 cm/sec. Rt. ICA/CCA = 1.05. Lt. ICA/CCA = 10.66. Prox ECA 72.1/14.7 cm/sec. Prox ECA 73/15.4 cm/sec. Rt. Vert. 95.6/23.9 cm/sec. Lt. Vert. 66.7/20 cm/sec. Right Extracranial There is intimal thickening but no significant atherosclerotic plaque noted in the right common carotid artery. There is homogeneous, smooth atherosclerotic plaque noted in the right internal carotid artery. There is intimal thickening but no significant atherosclerotic plaque noted in the right external carotid artery. Antegrade flow is noted in the right vertebral artery. Left Extracranial There is heterogeneous, irregular atherosclerotic plaque noted in the left common carotid artery. There is heterogeneous, irregular atherosclerotic plaque noted in the left internal carotid artery. The atherosclerotic plaque causes acoustic shadowing. There is heterogeneous, irregular atherosclerotic plaque noted in the left external carotid artery. The left external carotid artery is not well visualized. Antegrade flow is noted in the left vertebral artery. Procedure Carotid Duplex 03196. This is a Carotid Duplex examination using B-mode, color flow and specral Doppler. Prelim to Rishi Santacruz RN. Exam performed portable in patient room. VL/Carotid Duplex Ultrasound Interpretation Summary Smooth plague proximal right internal carotid with <50% stenosis <50% stenosis right external carotid Irregular plague with shadowing proximal left internal carotid with >70% stenos is <50% stenosis left external carotid Patent, antegrade vertebrals bilaterally Ordering Physician: Chio Valero Performed By: Chhaya Maldonado RVT
--- NOTE | 2021-04-29 15:47 | MRI_ITS ---
STUDY: MRA OF THE HEAD WITHOUT CONTRAST REASON FOR EXAM: Female, 65 years old. CVA. CVA TECHNIQUE: 3-D [id number]-tzrasm (TOF) imaging was performed with MIPs. The study was performed unenhanced. COMPARISON: None. FINDINGS: Patent right cavernous carotid artery. Decreased opacification of patent left cavernous carotid artery. Patent right A1 segments of the anterior cerebral artery. Patent left A1 segments of the anterior cerebral artery. Unremarkable anterior communicating artery (ACOM) region. Normal bilateral A2 segments of the anterior cerebral arteries. Patent right M1 and M2 segments of the middle cerebral arteries, with a unremarkable M1 bifurcation. Decreased opacification of patent left M1 and M2 segments of the middle cerebral arteries, with a unremarkable M1 bifurcation. Normal right posterior communicating artery (PCOM). There is non-visualization of the left posterior communicating artery (PCOM). Patent basilar artery with a normal basilar bifurcation. Patent bilateral posterior cerebral arteries. MRI/MRA Head ONLY without Contrast IMPRESSION: No large vessel occlusion. Decreased flow of the left ICA, suggestive of proximal severe stenosis/occlusion. Further evaluation with CTA is recommended. Electronically Signed: Eyal Vora MD at 9:10 EST Tel , Service support ,
[2021-04-29] MEDS: 0.9% Normal Saline 1,000 ML 100 ML IV (16:30)
[2021-04-29 16:43] LABS: Reflex Lactate? Y
[2021-04-29 16:51] LABS: Hemoglobin A1c 6.7 % (3.8-5.6)
[2021-04-29] MEDS: Ceftriaxone 1 GM/50 ML BAG IV (17:02)
[2021-04-29] MEDS: Aspirin 81 MG TAB.CHEW PO (17:02)
[2021-04-29 17:20] LABS: Bedside Glucose 120 mg/dL (70-110)
[2021-04-29 17:21] LABS: Vitamin B12 178 pg/mL (211-911)
[2021-04-29 17:34] LABS: Lactic Acid 0.9 mmol/L (0.4-1.9)
[2021-04-29 17:36] LABS: T4 Free Direct 1.66 ng/dL (0.76-1.46)
--- NOTE | 2021-04-29 19:04 | MRI_ITS ---
We are attempting to reach an attending provider to discuss findings. An addendum with communication details will be sent when the communication is complete. STUDY: MRI BRAIN WITHOUT CONTRAST REASON FOR EXAM: Female, 65 years old. CVA TECHNIQUE: Standardized multiplanar fat and water weighted pulse sequences were obtained. COMPARISON: 04/29/2021 CT of the head and ultrasound dated 04/29/2021. FINDINGS: There is mild cerebral atrophy with widening of the extra-axial spaces and ventricular dilatation. There are multiple white matter hyperintensities, distributed throughout the deep white matter tracts of the cerebral hemispheres, consistent with moderate chronic white matter ischemic changes. There is approximately 3 cm restricted diffusion involving the left parietal lobe with drop of signal on ADC map, consistent with acute infarctions. More posteriorly there is volume loss, consistent with chronic infarction. Additionally there are multiple small foci of restricted diffusion involving the left centrum semiovale in watershed-type configuration. Previous ultrasound demonstrated high-grade stenosis of the left ICA. Further evaluation with CTA is recommended. Normal sella turcica, pituitary gland, infundibular stalk, optic chiasm and hypothalamus. Normal tectal plate and pineal gland. Normal midbrain, kp and medulla. Normal cerebellum. MRI/Brain without Contrast IMPRESSION: Acute left parietal infarct superimposed on chronic infarct. Watershed type left infarcts. Further evaluation with CTA of the neck is recommended. Electronically Signed: Eyal Vora MD at 8:54 EST Tel , Service support ,
[2021-04-29] MEDS: Atorvastatin Calcium 80 MG Tablet PO (21:19)
[2021-04-29] MEDS: Acetaminophen 325 MG Tablet 650 MG PO (21:19)
[2021-04-29 22:40] LABS: Bedside Glucose 138 mg/dL (70-110)
[2021-04-30] VITALS (13 sets, daily range): BP systolic 104–147; BP diastolic 54–75; PULSE 77–95; RESP 16–18; TEMP 35.9–36.9; O2SAT 93–96; BMI 26.0
[2021-04-30] MEDS: Levothyroxine 150 MCG Tablet PO (06:09)
--- NOTE | 2021-04-30 06:32 | PN.HOSP_ITS ---
Subjective Subjective Patient overnight with no acute events per self and per nursing report. She does state she feels as though she is having some improvement in her ability to express herself but still continued difficulty and frustration. She notes that speech therapy did give her exercises to perform. If she is felt appropriate for acute rehab she is amenable to this. Patient denies fevers, chills, nausea, emesis, abdominal pain, chest pain or dyspnea. Objective Data Objective Data Vital Signs: Vital Signs Temp Pulse Resp BP Pulse Ox 98.5 F 85 16 104/56 L 94 04/30/21 06:05 04/30/21 06:05 04/30/21 06:05 04/30/21 06:05 04/30/21 06:05 Oxygen Delivery Method Room Air Weight: 151 lb 7.321 oz Body Mass Index (BMI) 26.0 Intake & Output: Intake and Output for Last 24 Hours 04/28/21 04/29/21 04/30/21 23:59 23:59 23:59 Intake Total 1290 / 1290 1000 / 1000 Balance 1290 / 1290 1000 / 1000 Lab / Micro Data Result Diagrams: 04/30/21 06:49 04/30/21 06:49 Labs: Laboratory Results - last 24 hr 04/29/21 12:15: WBC 10.3, RBC 4.28, Hgb 10.7 L, Hct 34.9 L, MCV 81.5, MCH 25.0 L , MCHC 30.7 L, RDW Std Deviation 49.1 H, RDW Coeff of Apple 16.8 H, Plt Count 501 H, MPV 9.4, Immature Gran % (Auto) 0.500, Neut % (Auto) 70.7 H, Lymph % (Auto) 21.6, [place] % (Auto) 6.0, Eos % (Auto) 0.7, Baso % (Auto) 0.5, Absolute Neuts (auto) 7.3, Absolute Lymphs (auto) 2.22, Nucleated RBC % 0 04/29/21 12:15: PT 12.0, INR 0.9, APTT 27.4 04/29/21 12:15: Sodium 132 L, Potassium 3.9, Chloride 99, Carbon Dioxide 25.0, Anion Gap 8, BUN 11, Creatinine 1.10 H, Estim Creat Clear Calc 44.66, Est GFR (MDRD) Af Amer 64, Est GFR (MDRD) Non-Af 53 L, BUN/Creatinine Ratio 10.0, Glucose 160 H, Calcium 10.2 H, Total Bilirubin 0.40, AST 24, ALT 34, Alkaline Phosphatase 37 L, Troponin I High Sens 4, Total Protein 7.9, Albumin 4.2, Globulin 3.7, Albumin/Globulin Ratio 1.1, TSH 0.30 L 04/29/21 12:15: Lactic Acid 3.7 H* 04/29/21 12:15: Urine Color Yellow, Urine Clarity Clear, Urine pH 6.0, Ur Specific [place] 1.020, Urine Protein 15 H, Urine Glucose (UA) Normal, Urine Ketones Negative, Urine Occult Blood 10 H, Urine Nitrite Positive H, Urine Bilirubin Negative, Urine Urobilinogen Normal, Ur Leukocyte Esterase 100 H, Urine RBC 0 SEEN, Urine WBC 0-5 SEEN, Ur Squamous Epith Cells 0 SEEN, Urine Bacteria 2+, Urine Mucus 0 SEEN 04/29/21 12:15: Magnesium 1.9 04/29/21 12:15: Iron 30 L, TIBC 626 H, Iron Saturation 4.8 L, Ferritin 8, Folate 17.90 04/29/21 12:15: Hemoglobin A1c 6.7 H 04/29/21 12:45: Vitamin B12 178 L 04/29/21 12:45: Free T4 1.66 H 04/29/21 16:52: Lactic Acid 0.9 04/29/21 17:11: POC Glucose 120 H 04/29/21 22:16: POC Glucose 138 H Micro: Microbiology 04/29/21 12:02 Mucosa - Nasopharyngeal Influenza Types A,B Direct FA (TALA) - Final 04/29/21 12:02 Nasal Secretion SARS-CoV-2 Antigen (Rapid) - Final Radiography Diagnostic Testing: Radiology Impression Brain CT 04/29/21 11:27 IMPRESSION: 1. Posterior left MCA territory subacute or chronic infarction without hemorrhage. No prior comparison study. 2. Central parenchymal volume loss. White matter changes that are nonspecific but most commonly associated with chronic small vessel ischemic disease. Electronically Signed: Vega Cuadra MD (Brooks) at 12:39 EST , Service support , Chest X-Ray 04/29/21 12:30 IMPRESSION: Nonacute portable x-ray examination of the chest. Electronically Signed: Vega Cuadra MD (Brooks) at 12:43 EST , Service support , Physical Exam Narrative Physical Examination: General: Awake, alert, oriented x 3 but it does take her a significant amount of time to give answers with notable expressive aphasia, mildly stuttered/altered speech but her speech does seem to be improved with less stuttering/slurring, still has difficulty expressing but does seem to have greater ease than day prior, still frustration evident. Skin: Normal color, normal turgor, no icterus, no cyanosis. HEENT: AT/NC, EOMI, PERRLA, improved MMM. Lungs: CTA bilaterally, moderate effort, mild decrease BL bases, no rales, ronchi or wheezing. Heart: Regular rate and rhythm; no gallop, rub audible. Abdomen: Soft, overweight, NTTP, ND, normal BS. Extremities: No cyanosis, clubbing, or edema. Neurological: Patient awake, alert, oriented as noted, cognitive function improved, notable expressive aphasia still present; pupils equally reactive to light and accommodation, cranial nerves II-XII grossly normal, moving all 4 extremities, no focal deficits, strength preserved, FTN and HTS appropriate, denies any subjective paresthesia/numbness, notable expressive aphasia, speech more fluent when able to express herself. Psychiatric: Affect appears more calm initially but still some episodes of expected frustration, no acute evidence of depressive or anxiety feelings. Assessment & Plan Assessment/Plan (1) Acute ischemic stroke: PLAN: The patient is a 65 y/o F w/ PMHx: Diabetes mellitus type II, HTN, HLD, Hx parathyroidectomy w/ Hypothyroidism who presents to the [facility] ED on 04/29/21 with history of onset confusion, expressive aphasia, dysarthria and confusion which started this prior Sunday and became progressively more pronounced when family eventually convinced her to present to the ED for evaluation. #1. Acute Encephalopathy, Expressive Aphasia, Dysarthria, Multifactorial, secondary to #1 Subacute Posterior left MCA territory and #2: Admitted to PCU, MRI brain w/ acute left parietal infarct superimposed on chronic infarct, water shed type left infarcts, MRA with no large vessel occlusion with decreased flow over the left ICA suggestive of proximal severe stenosis/occlusion, carotid US performed with wet read noting intimal thickening but no significant plque noted in R common carotid artery, homogeneous smooth plague noted in R carotid artery, intimal thickening but no significant plaque noted R external carotid, antegrade flow noted R vertebral artery, L extracranial heterogenous irregular plaque L common carotid artery, heterogenous irregular plaque in L internal carotid causing acoustic shadowing, heterogenous plaque noted L external carotid and L external carotid not well visualized, antegrade flow noted L vertebral artery, with final read pending, pending ECHO, PT/OT/Speech/Nutrition evaluation per protocol. Given timeline continued low dose lisinopril regimen, maintain on asa, high dose statin, fall precautions. Mag 1.9, TSH 0.3/Ft4 1.66 with adjustments to synthroid as noted, HgbA1c 6.7%, FLP w/ total cholesterol 150, LDL 76, VLDL 42, HDL 32. Telemetry neurology consulted and reviewed data with recommendation for continued aspirin therapy will plavix, statin, BP goal less than 130/80, goal hemoglobin A1c less than 7%, tobacco cessation, continue plan for echocardiogram, recommended awaiting carotid imaging and if left carotid stenosis noted greater than 50% recommendation for follow-up with vascular surgery to discuss CEA versus stenting. Recommendation for CEA within 2 weeks. Did discuss case with Dr. George, vascular surgeon who noted intention to see her in his office outpatient this coming Sunday morning and requested in the interim that cardiology evaluate the patient to expedite clearance for carotid endarterectomy. Discussed patient again with neurology and will obtain CTA head and neck to further elucidate occlusion as well. #2. Acute Urinary Tract Infection: UA upon ED evaluation remarkable, pending UCx, continue IVFs, monitor I/Os, continue IV Rocephin w/ transition as able pending sensitivities and speciation. Bld cx x 2 obtained in the ED. #3. Lactic acidosis with suspected mild acute renal insufficiency, secondary to poor oral intake, hypokalemia: Admission sodium mildly decreased 132, BUN/creat 11/1.10 although no comparison with lactic acid 3.7, suspect with recent stroke patient has had poor intake especially given urinalysis with elevated specific gravity 1.020-->repeat 0-9 following judicious hydration. #4. Diabetes mellitus type II: Hold oral home regimen, hemoglobin A1c 6.7%, ADA diet, accu checks w/ ISS. #5. Hypertension: Continue home regimen including lisinopril with adjustments as needed to achieve appropriate BP parameters given timeline, PRN hydralazine. #6. Hypothyroidism with abnormal TSH: Patient with history of parathyroidectomy s/p initiation of Synthroid regimen. TSH 0.30, free T4 1.66 consistent with hyperthyroidism, will decrease dose to 125 mcg daily and have patient repeat thyroid function tests in 4-6 weeks with PCP. #7. Normocytic anemia/Fe deficiency anemia/Vitamin B12 deficiency: Unclear if chronic, no recent comparisons, admission hemoglobin 10.7, evaluation with iron 30, TIBC 626, iron sat 4.8, ferritin 8 all consistent with iron deficiency anemia, folic acid 17.90 low normal and B12 178 also deficient. Will start iron, folic acid and vitamin B12 supplements. Suspect patient was dehydrated as noted, repeat 04/30/21 8.7. #8. Hyperlipidemia: Continue home statin regimen. AM FLP w/ total cholesterol 150, LDL 76, VLDL 42, HDL 32. #9. Tobacco Abuse: Encouraged cessation, inpatient consultation per RT, NR if desired. #10. DVT prophylaxis: SCDs, Lovenox. #11. CODE status: Patient CABRERA is her and living will is currently in place per ED discussions with daughter present. Full Code. Charges/Coding Visit Charges Inpatient E&M: 33633 Subs Hosp L3
[2021-04-30 06:40] LABS: Bedside Glucose 122 mg/dL (70-110)
--- NOTE | 2021-04-30 06:58 | TELEMED_ITS ---
SOC Telemed has confirmed receipt of a request for visit. This document confirms receipt of the order initiating the consult. To find the results of the consultation, please view the patient's reports for the scanned Telemed Consult.
[2021-04-30 07:24] LABS: Absolute Lymphocyte Count 2.55 X10^3/uL (0.83-4.51); Absolute Neutrophil Count 2.7 X10^3/uL (2.0-7.7); Basophil# 0.03 X10^3/uL; Basophil% 0.5 % (0-1); Eosinophils% 1.7 % (0-5); Hematocrit 28.9 % (37-47); Hemoglobin 8.7 g/dL (12.0-15.0); Lymphocyte # 2.55 X10^3/ul (0.83-4.51); Lymphocyte % 43.1 % (19-41); Mean Corp Hgb Conc 30.1 g/dL (32-36); Mean Corpuscular Hgb 24.6 pg (27.0-32.0); Mean Corpuscular Volume 81.9 fL (81-99); Mean Platelet Vol. 9.6 fl (6.2-12.0); Monocyte# 0.49 X10^3/uL; Monocyte% 8.3 % (0-10); NRBC Flagged by Analyzer 0 % (0-5); Neutrophil # 2.72 X10^3/uL (2.7-7.7); Neutrophil % 46.1 % (47-70); Platelet Count 402 K/mm3 (150-450); RBC Distribution Width CV 16.6 % (11.6-14.6); RBC Distribution Width SD 49.3 fl (35.1-43.9); Red Blood Count 3.53 M/mm3 (4.2-5.4); White Blood Count 5.9 K/mm3 (4.4-11.0)
[2021-04-30] MEDS: Aspirin 81 MG TAB.CHEW PO (07:53)
[2021-04-30] MEDS: Lisinopril 5 MG Tablet PO (07:53)
[2021-04-30] MEDS: Famotidine 20 MG Tablet PO (07:53)
[2021-04-30] MEDS: Fenofibrate 145 MG Tablet PO (07:53)
[2021-04-30] MEDS: Cyanocobalamin 500 MCG Tablet 1000 MCG PO (07:57)
[2021-04-30] MEDS: Folic Acid 1 MG Tablet PO (07:57)
[2021-04-30] MEDS: Ceftriaxone 1 GM/50 ML BAG IV ×2 (07:58→09:00)
[2021-04-30] MEDS: Enoxaparin 40 MG/0.4 ML Syringe SC ×2 (07:58→09:00)
[2021-04-30 08:01] LABS: ALB/GLOB Ratio 1.1 RATIO (0.9-2.4); AST(SGOT) 16 U/L (15-37); Alanine Aminotransfer ALT/SGPT 25 U/L (13-56); Albumin, Serum 3.3 g/dL (3.2-5.0); Alkaline Phosphatase 27 U/L (45-117); Anion Gap 5 (5-15); BUN 11 mg/dL (7-18); BUN/Creat Ratio 13.2 RATIO (10-20); Calcium,Total 9.1 mg/dL (8.5-10.1); Chloride 109 mmol/L (98-107); Cholesterol 150 mg/dL (200); Creatinine, Serum 0.83 mg/dL (0.55-1.02); EST Glomerular Filtration Rate 72 mL/min (>60); Est Glom Filt Rate - Afr Amer 88 mL/min (>60); Globulin 3.1 g/dL (2.2-4.2); Glucose 120 mg/dL (74-106); High Density Lipoprotein 32 mg/dL; Potassium 3.9 mmol/L (3.5-5.1); Protein, Total 6.4 g/dL (6.4-8.2); Sodium Level 136 mmol/L (136-145); Triglycerides 210 mg/dL; Very Low Density Lipoprotein 42 mg/dL (5-40)
[2021-04-30] MEDS: Iron Polysaccharide Complex 150 MG CAPSULE PO (09:00)
--- NOTE | 2021-04-30 09:55 | CT_ITS ---
We are attempting to reach an attending provider to discuss findings. An addendum with communication details will be sent when the communication is complete. EXAM: CT ANGIOGRAPHY HEAD AND NECK WITH INTRAVENOUS CONTRAST : 1955 CLINICAL INDICATION: cva, carotid disease TECHNIQUE: [place]/head and neck CT angiography protocol performed with intravenous contrast. This CT exam was performed using one or more of the following dose reduction techniques: automated exposure control, adjustment of the mA and/or kV according to patient size, and/or use of iterative reconstruction technique. This report was created using [employer] report generation technology. MIP reconstructed images were created and reviewed. CONTRAST: IV 100mL Isovue-370 COMPARISON: None. FINDINGS: HEAD: RIGHT ANTERIOR CEREBRAL ARTERY: Unremarkable. No significant stenosis at the visualized segments. Anterior communicating artery is present. No aneurysm. RIGHT MIDDLE CEREBRAL ARTERY: Unremarkable. No significant stenosis at the visualized segments. No aneurysm. RIGHT POSTERIOR CEREBRAL ARTERY: Unremarkable. No occlusion or significant stenosis. No aneurysm. LEFT ANTERIOR CEREBRAL ARTERY: Unremarkable. No significant stenosis at the visualized segments. No aneurysm. LEFT MIDDLE CEREBRAL ARTERY: Unremarkable. No significant stenosis at the visualized segments. No aneurysm. LEFT POSTERIOR CEREBRAL ARTERY: Unremarkable. No occlusion or significant stenosis. No aneurysm. BASILAR ARTERY: Unremarkable. No significant stenosis. No aneurysm. GREAT VESSELS OF AORTIC ARCH: Unremarkable. Normal anatomy, patent. OTHER VASCULATURE: No vascular malformation. NECK: RIGHT COMMON CAROTID ARTERY: Unremarkable. No significant stenosis. No dissection or occlusion. RIGHT INTERNAL CAROTID ARTERY: Unremarkable. No significant stenosis. No dissection or occlusion. RIGHT EXTERNAL CAROTID ARTERY: Unremarkable. No occlusion. RIGHT VERTEBRAL ARTERY: Unremarkable. No significant stenosis. No dissection or occlusion. LEFT COMMON CAROTID ARTERY: Unremarkable. No significant stenosis. No dissection or occlusion. LEFT INTERNAL CAROTID ARTERY: There is heavy calcific plaque in the left carotid bulb. There is a low-density thrombus seen within the proximal left internal carotid artery narrows the vessel approximately 60% segment. LEFT EXTERNAL CAROTID ARTERY: Unremarkable. No occlusion. LEFT VERTEBRAL ARTERY: Unremarkable. No significant stenosis. No dissection or occlusion. LUNG APICES: Unremarkable as visualized. SOFT TISSUES: Unremarkable. CAROTID STENOSIS REFERENCE USING NASCET CRITERIA: % ICA stenosis = (1 - narrowest ICA diameter/diameter of distal cervical ICA) x 100. Moderate - 50-69% stenosis. Severe - 70-94% stenosis. Near occlusion - 95-99% stenosis. Occluded - 100% stenosis. CT/STROKE CTA Head AND Neck W/Con IMPRESSION: Heavy calcification of the left carotid bulb with low-density thrombus seen within the proximal left internal carotid artery that creates a 60% stenosis of the vessel at its origin. All other vessels are patent. Individualized dose optimization techniques were used for this CT. at 1056 Reported and signed by: Vignesh Mccann MD Electronically Signed: Vignesh Mccann MD at 10:55 EST Tel , Service support ,
--- NOTE | 2021-04-30 10:00 | CASEMGMT ---
HARLAN LÓPEZ Face to Face with patient for initial transition planning/care coordination assessment. RN CM introduced self and role at [facility]. Patient lying in bed, alert and oriented. Patient willing to participate in assessment and is able to answer all questions appropriately. Care providers, pharmacy, and demographics verified. Patient wishes to discharge home, denies need for home health at this time. Patient states she has no further needs or concerns at this time. CM to follow for discharge planning needs that may arise. PCP: No PCP, her retired, seeing MIX TECHNICIAN at practice. SW provided with PCP list Specialists: none [facility]erred [facility]acy: [facility] Insurance: [employer] Prescription Benefit: patient not sure Living Will/HPOA: yes, Toni Proper LNOK: , son Living Arrangements: Patient lives with in a split level home. Patient states she was independent at home and able to ambulate stairs. Transportation: self/ DME/HHC: Patient states she has grab bars at home. Patient denies previous HHC or SNF. Patient has smoke for 45 years 3/4 pack per day. Patient interested in outpatient therapy, script received. Disposition Plan: Patient to discharge home with outpatient therapy, family support, and follow-up plans in place. Chhaya JIMENEZ, RN, CM
[2021-04-30] MEDS: Clopidogrel Bisulfate 75 MG Tablet PO (10:45)
[2021-04-30] MEDS: Insulin Lispro 100 UNIT/ML INSULN.PEN SC ×2 (10:48→20:34)
[2021-04-30 10:56] LABS: Bedside Glucose 153 mg/dL (70-110)
--- NOTE | 2021-04-30 13:43 | PCM.CONS.C ---
Assessment & Plan Assessment/Plan (1) Hypercalcemia: (2) Hyperparathyroidism: (3) Osteopenia determined by x-ray: (4) Acute ischemic stroke: PLAN: Patient 65-year-old with history of hypertension, hyperlipidemia, hypothyroidism, smoker Has expressive dysphagia with acute ischemic stroke She has acute left parietal lobe infarct There is no prior cardiac history Cardiac assessment and recommendation; 1. Review of the EKG on cardiac telemetry revealed normal sinus rhythm No significant ST?T abnormality noted. No symptoms of chest pain reported 2. Echocardiographic evaluation showed LV function preserved, Doppler studies negative With no evidence of intracardiac shunt. 3. No further cardiac evaluation will be required, due to multiple risk factor for CAD [facility] an [facility] to evaluate for myocardial ischemia HPI Consult Data Date of Consult: 04/30/21 HPI Narrative Reason for Consultation: Patient with acute ischemic stroke with expressive aphasia HPI Narrative: COLLIN BATES, is a 65 F who presents [facility] Medical History (Updated 04/29/21 @ 14:[address] Chio Valero MD) Arthritis Breast cyst High cholesterol High triglycerides HTN (hypertension) Hypothyroidism Tobacco use Type 2 diabetes mellitus without complications Medical History unable to obtain Home Medications cholecalciferol (vitamin D3) 50 mcg (2,000 unit) capsule 50 mcg PO DAILY 03/30/20 [History Last Taken Unknown] fenofibrate micronized 134 mg capsule 134 mg PO DAILY 03/30/20 [History Last Taken Unknown] glipizide 2.5 mg tablet, extended release 24 hr 2.5 mg PO DAILY 03/30/20 [History Last Taken Unknown] levothyroxine 150 mcg tablet 150 mcg PO DAILY 03/30/20 [History Last Taken Unknown] lisinopril 5 mg tablet 5 mg PO DAILY 03/30/20 [History Last Taken Unknown] metformin 1,000 mg tablet 1,000 mg PO BID 03/30/20 [History Last Taken Unknown] simvastatin 40 mg tablet 40 mg PO DAILY 03/30/20 [History Last Taken Unknown] Allergy/AdvReac Type Severity Reaction Status Date / Time No Known Allergies Allergy Verified 04/29/21 10:26 Family History Sister Thyroid disorder Cancer Diabetes Brother Myocardial infarction Bleeding disorder Cancer Diabetes Mother Breast cancer Other Arthritis Colon cancer Heart disease High cholesterol Family History unable to obtain Surgical History (Updated 04/29/21 @ 14:[address] Chio Valero MD) History of appendectomy S/P parathyroidectomy Surgical History unable to obtain Social History (Updated 04/29/21 @ 14:[address] Chio Valero MD) household members: spouse Smoking Status: Current every day smoker tobacco type: cigarettes Smoking packs per day: 0.75 Smoking cigarettes per day: 15.0 alcohol intake: current alcohol intake frequency: holidays/special occasions only substance use type: does not use what type of physical activity do you participate in: none Physical Exam Narrative Seen evaluated at bedside and discussed with the nursing staff at bedside at time of evaluation Patient still had the speech difficulty environmental monitoring technician revealed underlying normal sinus Cardiac examination S1-S2 normal no murmur, no systolic or diastolic murmur, no pericardial rub or gallop rhythm Chest examination is clear to auscultation bilaterally Risk Stratification Risk Stratification Applicable: No Objective Data Vital Signs: Vital Signs Temp Pulse Resp BP Pulse Ox 96.7 F L 78 16 128/75 H 93 04/30/21 07:50 04/30/21 11:00 04/30/21 07:50 04/30/21 07:50 04/30/21 12:14 Oxygen Delivery Method Room Air Weight: 151 lb 7.321 oz Body Mass Index (BMI) 26.0 Intake & Output: Intake and Output for Last 24 Hours 04/28/21 04/29/21 04/30/21 23:59 23:59 23:59 Intake Total 1290 / 1290 1050 / 1050 Balance 1290 / 1290 1050 / 1050 Lab / Micro Data Result Diagrams: 04/30/21 06:49 04/30/21 06:49 Labs: Laboratory Results - last 24 hr 04/29/21 12:15: Magnesium 1.9 04/29/21 12:15: Iron 30 L, TIBC 626 H, Iron Saturation 4.8 L, Ferritin 8, Folate 17.90 04/29/21 12:15: Hemoglobin A1c 6.7 H 04/29/21 12:45: Vitamin B12 178 L 04/29/21 12:45: Free T4 1.66 H 04/29/21 16:52: Lactic Acid 0.9 04/29/21 17:11: POC Glucose 120 H 04/29/21 22:16: POC Glucose 138 H 04/30/21 06:12: POC Glucose 122 H 04/30/21 06:49: WBC 5.9, RBC 3.53 L, Hgb 8.7 L, Hct 28.9 L, MCV 81.9, MCH 24.6 L, MCHC 30.1 L, RDW Std Deviation 49.3 H, RDW Coeff of [place] 16.6 H, Plt Count 402, MPV 9.6, Immature Gran % (Auto) 0.300, Neut % (Auto) 46.1 L, Lymph % (Auto) 43.1 H, [place] % (Auto) 8.3, Eos % (Auto) 1.7, Baso % (Auto) 0.5, Absolute Neuts (auto) 2.7, Absolute Lymphs (auto) 2.55, Nucleated RBC % 0 04/30/21 06:49: Sodium 136, Potassium 3.9, Chloride 109 H, Carbon Dioxide 22.0, Anion Gap 5, BUN 11, Creatinine 0.83, Estim Creat Clear Calc 56.80, Est GFR (MDRD) Af Amer 88, Est GFR (MDRD) Non-Af 72, BUN/Creatinine Ratio 13.2, Glucose 120 H, Calcium 9.1, Total Bilirubin 0.50, AST 16, ALT 25, Alkaline Phosphatase 27 L, Total Protein 6.4, Albumin 3.3, Globulin 3.1, Albumin/Globulin Ratio 1.1, Triglycerides 210 H, Cholesterol 150, LDL Cholesterol 76, VLDL Cholesterol 42 H, HDL Cholesterol 32 L 04/30/21 10:44: POC Glucose 153 H Micro: Microbiology 04/29/21 12:15 Urine, Clean Catch Urine Culture - Preliminary GNR lactose automatic buffing wheel former 04/29/21 12:02 Mucosa - Nasopharyngeal Influenza Types A,B Direct FA (TALA) - Final 04/29/21 12:02 Nasal Secretion SARS-CoV-2 Antigen (Rapid) - Final Cardiology Labs/Tests 04/29/21 12:15: Magnesium 1.9 04/29/21 12:15: Iron 30 L, TIBC 626 H, Iron Saturation 4.8 L, Ferritin 8 04/29/21 12:15: Hemoglobin A1c 6.7 H 04/29/21 16:52: Lactic Acid 0.9 04/30/21 06:49: WBC 5.9, RBC 3.53 L, Hgb 8.7 L, Hct 28.9 L, MCV 81.9, MCH 24.6 L, MCHC 30.1 L, Plt Count 402, MPV 9.6, Immature Gran % (Auto) 0.300, Neut % (Auto) 46.1 L, Lymph % (Auto) 43.1 H, [place] % (Auto) 8.3, Eos % (Auto) 1.7, Baso % (Auto) 0.5, Absolute Neuts (auto) 2.7, Nucleated RBC % 0 04/30/21 06:49: Sodium 136, Potassium 3.9, Chloride 109 H, Carbon Dioxide 22.0, Anion Gap 5, BUN 11, Creatinine 0.83, Est GFR (MDRD) Af Amer 88, Est GFR (MDRD) Non-Af 72, BUN/Creatinine Ratio 13.2, Glucose 120 H, Calcium 9.1, Total Bilirubin 0.50, Triglycerides 210 H, Cholesterol 150, LDL Cholesterol 76, VLDL Cholesterol 42 H, HDL Cholesterol 32 L Rhythm: EKG: ECHO: Stress Test: Cardiac Cath: PCI: CT Surgery: Holter monitor: EPS: PPM: CXR: Chest CT Scan: Radiography Diagnostic Testing: Radiology Impression Echocardiogram 04/29/21 15:47 Interpretation Summary The estimated ejection fraction is 55-60 %. Normal LV systolic function [place] study is Negative Ordering Physician: Chio Valero Referring Physician: NO PCP NOTED Performed By: Cyril Davila RCS Head MRA 04/29/21 15:47 IMPRESSION: No large vessel occlusion. Decreased flow of the left ICA, suggestive of proximal severe stenosis/occlusion. Further evaluation with CTA is recommended. Electronically Signed: Eyal Vora MD at 9:10 EST Tel , Service support , Brain MRI 04/29/21 19:04 IMPRESSION: Acute left parietal infarct superimposed on chronic infarct. Watershed type left infarcts. Further evaluation with CTA of the neck is recommended. Electronically Signed: Eyal Vora MD at 8:54 EST Tel , Service support , ADDENDUM: 04/30/21 0915 IMPRESSION: Acute left parietal infarct superimposed on chronic infarct. Watershed type left infarcts. Further evaluation with CTA of the neck is recommended. N.B. : The above Results were Read Back by Eyal Vora MD to HARLAN Gonsalves, and understanding confirmed on 04/30/2021 09:09:02 (ET). Electronically Signed: Eyal Vora MD at 8:54 EST Tel , Service support , Head/Neck CTA 04/30/21 09:55 IMPRESSION: Heavy calcification of the left carotid bulb with low-density thrombus seen within the proximal left internal carotid artery that creates a 60% stenosis of the vessel at its origin. All other vessels are patent. Individualized dose optimization techniques were used for this CT. at 1056 Reported and signed by: Vignesh Mccann MD Electronically Signed: Vignesh Mccann MD at 10:55 EST Tel , Service support , ADDENDUM: 04/30/21 1105 IMPRESSION: Heavy calcification of the left carotid bulb with low-density thrombus seen within the proximal left internal carotid artery that creates a 60% stenosis of the vessel at its origin. All other vessels are patent. Individualized dose optimization techniques were used for this CT. at 1056 Reported and signed by: Vignesh Mccann MD N.B. : The above Results were Read Back by Vignesh Mccann MD to HARLAN Loo, and understanding confirmed on 04/30/2021 10:59:01 (ET). Electronically Signed: Vignesh Mccann MD at 10:55 EST Tel , Service support ,
[2021-04-30 16:50] LABS: Bedside Glucose 132 mg/dL (70-110)
--- NOTE | 2021-04-30 17:38 | CM.ED ---
SOCIAL WORK Reason for Consult: Positive CVA- PHQ 9 Met with patient in room. Introduced role and reason for referral. Completed PHQ9 with patient. Score-1. Patient plans to return home at discharge. Sloan Medrano MSW, C[employer]ON REPAIRER
[2021-04-30] MEDS: Atorvastatin Calcium 80 MG Tablet PO (20:34)
[2021-04-30 21:06] LABS: Bedside Glucose 169 mg/dL (70-110)
[2021-05-01 02:00] VITALS: BP 121/55; PULSE 80; RESP 18; TEMP 36.3; O2SAT 92
[2021-05-01 02:52] VITALS: PULSE 70
[2021-05-01 06:00] VITALS: BP 126/64; PULSE 83; RESP 18; TEMP 36.6; O2SAT 94
[2021-05-01] MEDS: Levothyroxine 125 MCG Tablet PO (06:18)
[2021-05-01 06:36] VITALS: PULSE 82
[2021-05-01 06:46] LABS: Bedside Glucose 144 mg/dL (70-110)
--- NOTE | 2021-05-01 06:49 | DS.PCM_ITS ---
Providers Date of Admission: 04/29/21 Primary Care Physician: Suze Primary Care Phys Consultations 04/30/21 10:10 Consult: Cardiology Routine Consulting Provider: Letty Brown Reason for Consult: Vascular requested evaluation prior to Carotid sugery, recent acute CVA EMERGENT Consult: No MD Notified: Yes Date Notified: 04/30/21 Time Notified: 10:10 Method of Notification: cortext Reason For Visit: CVA Diagnosis Discharge Diagnosis (1) Hypercalcemia: Status: Chronic Code(s): E83.52 - Hypercalcemia (2) Hyperparathyroidism: Status: Chronic Code(s): E21.3 - Hyperparathyroidism, unspecified (3) Osteopenia determined by x-ray: Status: Chronic Code(s): M85.80 - Other specified disorders of bone density and structure, unspecified site (4) Acute ischemic stroke: Status: Acute Code(s): I63.9 - Cerebral infarction, unspecified Medications at Discharge Home Medications cholecalciferol (vitamin D3) 50 mcg (2,000 unit) capsule 50 mcg PO DAILY 03/30/20 fenofibrate micronized 134 mg capsule 134 mg PO DAILY 03/30/20 glipizide 2.5 mg tablet, extended release 24 hr 2.5 mg PO DAILY 03/30/20 lisinopril 5 mg tablet 5 mg PO DAILY 03/30/20 metformin 1,000 mg tablet 1,000 mg PO BID 03/30/20 aspirin 81 mg PO BREAKFAST 30 Days #30 tab 05/01/21 atorvastatin 80 mg PO QHS 30 Days #30 tab 05/01/21 cephalexin 500 mg PO Q8H 3 Days #9 cap 05/01/21 clopidogrel 75 mg PO DAILY 30 Days #30 tab 05/01/21 cyanocobalamin (vitamin B-12) 1,000 mcg PO BREAKFAST 60 Days #120 tab 05/01/21 folic acid 1 mg PO BREAKFAST 30 Days #30 tab 05/01/21 levothyroxine [Synthroid] 125 mcg PO DAILY 30 Days #30 tab 05/01/21 nicotine 14 mg TRANSDERMAL DAILY 14 Days #14 ea 05/01/21 polysaccharide iron complex [Ferrex 150] 150 mg PO DAILYCM 30 Days #30 cap 05/01/21 Hospital Course Operations None Procedures 2-D Echocardiogram and EKG Summary of Care Provided Minutes Spent on Discharge: 35 Hospital Course: DISCHARGE NOTE: Discharge Diagnoses: #1. Acute left parietal infarct superimposed on chronic infarct, watershed type left infarcts with notable Left Carotid disesae #2. Acute Urinary Tract Infection, pending speciation and sensitivites upon discharge #3. Lactic acidosis with suspected mild acute renal insufficiency, secondary to poor oral intake, hypokalemia, resolved #4. Diabetes mellitus type II (hemoglobin A1c 6.7%) #5. Hypertension #6. Hypothyroidism with abnormal TSH, mildly elevated FT4 (mild hyperthyroidism), decreased regimen dose #7. Normocytic anemia/Fe deficiency anemia/Vitamin B12 deficiency/Folic Acid deficiency #8. Hyperlipidemia #9. Tobacco Abuse Discharge Summary: The patient is a 65 y/o F w/ PMHx: Diabetes mellitus type II, HTN, HLD, Hx parathyroidectomy w/ Hypothyroidism who presented to the [facility] ED on 04/29/21 with history of onset confusion, expressive aphasia, dysarthria and confusion which started this prior Sunday and became progressively more pronounced when family eventually convinced her to present to the ED for evaluation. Admitted to PCU, MRI brain w/ acute left parietal infarct superimposed on chronic infarct, watershed type left infarcts, MRA with no large vessel occlusion with decreased flow over the left ICA suggestive of proximal severe stenosis/occlusion, carotid US performed with wet read noting intimal thickening but no significant plque noted in R common carotid artery, homogeneous smooth plague noted in R carotid artery, intimal thickening but no significant plaque noted R external carotid, antegrade flow noted R vertebral artery, L extracranial heterogenous irregular plaque L common carotid artery, heterogenous irregular plaque in L internal carotid causing acoustic shadowing, heterogenous plaque noted L external carotid and L external carotid not well visualized, antegrade flow noted L vertebral artery w/ follow-up CTA head and neck per Nephrology recommendation w/ heavy calcification of the left carotid bulb with low-density thrombus seen within the proximal left internal carotid artery creating a 60% stenosis of the vessel at its origin with other vessels patent. Echocardiogram with EF 55 to 60%, normal LV systolic function with a negative bubble study. Given timeline continued low dose lisinopril regimen, maintain on asa, high dose statin, fall precautions. Mag 1.9, TSH 0.3/Ft4 1.66 with adjustments to thyroid regimen, HgbA1c 6.7%, FLP w/ total cholesterol 150, LDL 76, VLDL 42, HDL 32. Telemetry neurology consulted and reviewed data with recommendation for continued aspirin therapy will plavix, statin, BP goal less than 130/80, goal hemoglobin A1c less than 7%, tobacco cessation, follow-up with vascular surgery to discuss CEA versus stenting w/ goal CEA within 2 weeks. Did discuss case with Dr. George, vascular surgeon who noted intention to see her in his office outpatient this 05/04/21 and requested in the interim that cardiology evaluate the patient to expedite clearance for carotid endarterectomy. Cardiology consultation performed with evaluation of EKG and echocardiogram with no further cardiac evaluation required per Cardiology noted. Cardiology did recommend follow-up outpatient with Cardiology office to continue evaluation for any underlying disease given history which will be requested at discharge. During evaluation patient with evident UTI, treated with IV rocephin inpatient with transition to oral kelfex at discharge with pending sensitivities and speciation at discharge. Patient with history of parathyroidectomy s/p initiation of Synthroid regimen. TSH 0.30, free T4 1.66 consistent with hyperthyroidism, decreased dose to 125 mcg daily and have patient repeat thyroid function tests in 4-6 weeks with PCP. Noted anemia during admission, unclear chronicity with evaluation with iron 30, TIBC 626, iron sat 4.8, ferritin 8 all consistent with iron deficiency anemia, folic acid 17.90 low normal and B12 178 also deficient, started on iron, folic acid and vitamin B12 supplements. Encouraged tobacco cessation, inpatient consultation per RT, NR rx given upon discharge. Patient discharged with outpatient ST, no further PT/OT recommended per evaluations, PCP follow-up with physician who took over the practice of Dr. Dill who retired, Neurology, Vascular Surgery and Cardiology. Discharge Time: > 35 Minutes DAY OF DISCHARGE PROGRESS NOTE: Subjective: Patient without acute event overnight per self and nursing report. Patient this morning upon evaluation does have significant improvement in her aphasia but still when she gets more hyper does become frustrated and has more difficulties. Discussed at length her discharge plan including her follow-up plan and medications that are new with the importance to continue these. Did again discuss and encouraged tobacco cessation with nicotine replacement plan upon discharge also patient denies fever, chills, nausea, emesis, abdominal pain, chest pain or dyspnea. Objective: T 97.3, heart rate 83, BP 129/72, respiratory rate 18, 94% on room air. Physical Examination: General: Awake, alert, oriented x 3 but does still take her some time to give answers, notably improved even from the day prior however, patient with no stuttering when she is giving answers but does take her some time and when she gets frustrated she does still become overwhelmed. She is correcting herself with greater ease. Skin: Normal color, normal turgor, no icterus, no cyanosis. HEENT: AT/NC, EOMI, PERRLA, MMM. Lungs: CTA bilaterally, moderate effort, mild decrease BL bases, no rales, ronchi or wheezing. Heart: Regular rate and rhythm; no gallop, rub audible. Abdomen: Soft, overweight, NTTP, ND, normal BS. Extremities: No cyanosis, clubbing, or edema. Neurological: Patient awake, alert, oriented as noted, cognitive function improved, notable expressive aphasia still present; pupils equally reactive to light and accommodation, cranial nerves II-XII grossly normal, moving all 4 extremities, no focal deficits, strength preserved, FTN and HTS appropriate, denies any subjective paresthesia/numbness, expressive aphasia has somewhat improved as noted, more fluent when she is able to get her comments out and able to string more words together. Psychiatric: Affect appears more calm today, less frustrated, no acute evidence of depressive or anxiety feelings. Assessment and Plan: Please see hospital summary above. Weight / BMI Weight Weight: 149 lb 7.574 oz Body Mass Index (BMI) 26.0 ABG / Lab / Microbiology Data Result Diagrams: 05/01/21 05:01 05/01/21 05:01 Laboratory: Laboratory Results - last 24 hr 04/30/21 06:49: WBC 5.9, RBC 3.53 L, Hgb 8.7 L, Hct 28.9 L, MCV 81.9, MCH 24.6 L , MCHC 30.1 L, RDW Std Deviation 49.3 H, RDW Coeff of Apple 16.6 H, Plt Count 402, MPV 9.6, Immature Gran % (Auto) 0.300, Neut % (Auto) 46.1 L, Lymph % (Auto) 43.1 H, [place] % (Auto) 8.3, Eos % (Auto) 1.7, Baso % (Auto) 0.5, Absolute Neuts (auto) 2.7, Absolute Lymphs (auto) 2.55, Nucleated RBC % 0 04/30/21 06:49: Sodium 136, Potassium 3.9, Chloride 109 H, Carbon Dioxide 22.0, Anion Gap 5, BUN 11, Creatinine 0.83, Estim Creat Clear Calc 56.80, Est GFR (MDRD) Af Amer 88, Est GFR (MDRD) Non-Af 72, BUN/Creatinine Ratio 13.2, Glucose 120 H, Calcium 9.1, Total Bilirubin 0.50, AST 16, ALT 25, Alkaline Phosphatase 27 L, Total Protein 6.4, Albumin 3.3, Globulin 3.1, Albumin/Globulin Ratio 1.1, Triglycerides 210 H, Cholesterol 150, LDL Cholesterol 76, VLDL Cholesterol 42 H, HDL Cholesterol 32 L 04/30/21 10:44: POC Glucose 153 H 04/30/21 16:40: POC Glucose 132 H 04/30/21 20:33: POC Glucose 169 H 05/01/21 06:14: POC Glucose 144 H Microbiology: Microbiology 04/29/21 12:15 Urine, Clean Catch Urine Culture - Preliminary GNR lactose wreath 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 Normal LV systolic function Buble study is Negative Ordering Physician: Chio Valero Referring Physician: NO PCP NOTED Performed By: Cyril Davila RCS Head MRA 04/29/21 15:47 IMPRESSION: No large vessel occlusion. Decreased flow of the left ICA, suggestive of proximal severe stenosis/occlusion. Further evaluation with CTA is recommended. Electronically Signed: Eyal Vora MD at 9:10 EST Tel , Service support , Brain MRI 04/29/21 19:04 IMPRESSION: Acute left parietal infarct superimposed on chronic infarct. Watershed type left infarcts. Further evaluation with CTA of the neck is recommended. Electronically Signed: Eyal Vora MD at 8:54 EST Tel , Service support , ADDENDUM: 04/30/21 0915 IMPRESSION: Acute left parietal infarct superimposed on chronic infarct. Watershed type left infarcts. Further evaluation with CTA of the neck is recommended. N.B. : The above Results were Read Back by Eyal Vora MD to HARLAN Gonsalves, and understanding confirmed on 04/30/2021 09:09:02 (ET). Electronically Signed: Eyal Vora MD at 8:54 EST Tel , Service support , Head/Neck CTA 04/30/21 09:55 IMPRESSION: Heavy calcification of the left carotid bulb with low-density thrombus seen within the proximal left internal carotid artery that creates a 60% stenosis of the vessel at its origin. All other vessels are patent. Individualized dose optimization techniques were used for this CT. at 1056 Reported and signed by: Vignesh Mccann MD Electronically Signed: Vignesh Mccann MD at 10:55 EST Tel , Service support , ADDENDUM: 04/30/21 1105 IMPRESSION: Heavy calcification of the left carotid bulb with low-density thrombus seen within the proximal left internal carotid artery that creates a 60% stenosis of the vessel at its origin. All other vessels are patent. Individualized dose optimization techniques were used for this CT. at 1056 Reported and signed by: Vignesh Mccann MD N.B. : The above Results were Read Back by Vignesh Mccann MD to HARLAN Loo, and understanding confirmed on 04/30/2021 10:59:01 (ET). Electronically Signed: Vignesh Mccann MD at 10:55 EST Tel , Service support , D/C Instructions Discharge Diet: 1800 Calorie Control Diet (Cardiac/1800 ADA diet) Suture Line Care: - (Any additional new onset stroke like symptoms.) Meaningful Use Info Meaningful Use Diagnoses (Choose all that apply): Ischemic CVA CVA Therapy Assessed for PT,OT and/or ST?: Yes Ischemic Stroke Antithrombotic order at d/c?: Yes Dx of Atrial fib/flutter?: No Anticoagulant at discharge?: No Reason anticoagulant not ordered: Treatment not Indicated Statins at discharge?: Yes Primary Dx Acute Ischemic CVA?: Yes IV tPA ordered during stay?: No Reason IV t-PA not ordered: Treatment not Indicated Discharge Plan Admission Admit Date/Time: 04/29/21 13:39 Primary Reason for Your Visit: Acute left parietal infarct, L carotid disease Attending Provider: Chio Valero Primary Care Provider: Care Physician,No Primary Consulting Providers: Letty Brown Instructions Additional Instructions / Restrictions: DISCHARGE SPECIFICS AND REVIEW OF ADMISSION DIAGNOSES: #1. Acute left parietal infarct superimposed on chronic infarct, watershed type left infarcts: Please continue the recently initiated aspirin, Plavix, increased higher dose statin, your previous hypertensive regimen and diabetic regimen with continued goal for reduction of your hemoglobin A1c. During admission your hemoglobin A1c was obtained and noted to be 6.7%. It is vital that you continue to not smoke to decrease your future stroke risk. IT IS AN ABSOLUTE MUST TO FOLLOW OUTPATIENT WITH SPEECH THERAPY to continue to improve your expressive aphasia (difficult getting words out) as this will help improve your current deficit. #2. Left internal carotid disease: Please continue the recently initiated aspirin, Plavix, statin and hypertensive regimen as well as diabetic regimen. It is vital that you follow-up with vascular surgery with plan visit 05/04/2021. Please call office immediately on Sunday morning upon their opening to arrange this visit. If there is any concerns or difficulties arranging this visit please notify [facility] [phone]. Dr. George is aware of your history and is expecting your visit to arrange future surgical intervention on the left carotid to decrease your recurrent stroke risk. #3. Acute Urinary Tract Infection: The final culture was pending upon your discharge. Your transition to oral Keflex. If there is any resistance pattern noted you will be contacted. #4. Hypothyroidism with abnormal TSH: Your TSH was 0.30 upon admission and your free T4 was 1.66 consistent with mild hyperthyroidism. Your thyroid medication level was decreased to a dose of 125 mcg daily. Please have repeat thyroid function testing with your primary care physician in 4 to 6 weeks to further assess regimen change needs. #5. Normocytic anemia/Fe deficiency anemia/Vitamin B12 deficiency: During the admission you were noted to be iron deficient, vitamin B12 and folic acid deficient. Please continue your recently initiated iron supplementation, vitamin B12 and folic acid levels. #6. Tobacco Abuse: Nicotine replacement prescription has been given. We advise you to continue this and transition then to 7 mg patch per your primary care physician to assure no further tobacco use as this increase your stroke risk. Discharge Orders/Prescriptions Prescriptions: New nicotine 14 mg/24 hr Patch 24 Hour 14 mg transdermal DAILY 14 Days Qty: 14 RF: 0 polysaccharide iron complex [Ferrex 150] 150 mg iron Capsule 150 mg PO DAILYCM 30 Days Qty: 30 RF: 0 folic acid 1 mg Tablet 1 mg PO BREAKFAST 30 Days Qty: 30 RF: 0 cyanocobalamin (vitamin B-12) 500 mcg Tablet 1,000 mcg PO BREAKFAST 60 Days Qty: 120 RF: 0 atorvastatin 80 mg Tablet 80 mg PO QHS 30 Days Qty: 30 RF: 0 clopidogrel 75 mg Tablet 75 mg PO DAILY 30 Days Qty: 30 RF: 0 aspirin 81 mg Tablet,Chewable 81 mg PO BREAKFAST 30 Days Qty: 30 RF: 0 cephalexin 500 mg capsule 500 mg PO Q8H 3 Days Qty: 9 RF: 0 levothyroxine [Synthroid] 125 mcg tablet 125 mcg PO DAILY 30 Days Qty: 30 RF: 0 Continued metformin 1,000 mg tablet 1,000 mg PO BID RF: 0 glipizide 2.5 mg tablet extended release 24hr 2.5 mg PO DAILY RF: 0 fenofibrate micronized 134 mg capsule 134 mg PO DAILY RF: 0 lisinopril 5 mg tablet 5 mg PO DAILY RF: 0 cholecalciferol (vitamin D3) 50 mcg (2,000 unit) capsule 50 mcg PO DAILY RF: 0 Discontinued levothyroxine 150 mcg tablet 150 mcg PO DAILY RF: 0 simvastatin 40 mg tablet 40 mg PO DAILY RF: 0 Referrals / Follow Up: Sergei George MD [STAFF PHYSICIAN] - (Follow-up on Sunday05/04/21 for evaluation for planned left carotid intervention. Please call his office immediately Sunday morning to arrange specific time. Call [phone] if any issues arranging.) Omero Ram MD [NON-STAFF] - (Please establish with your new primary care physician given your physician retired from this practice. Please follow-up in 3-5 days.) Ronak Mitchell MD [STAFF PHYSICIAN] - (Follow-up with Dr. Mitchell or his SYSTEM ARCHIVE ANALYST /PA, first visit available within 2-4 weeks.) Cecilia Enamorado, PA [PHYSICIAN INDUSTRIAL HYGIENIST] - (Per Dr. Brown recommendation please follow-up outpatient to have further cardiac evaluation. Please follow-up within 1-2 weeks.) Disposition Disposition (needs filled in before D/C Order can be placed): Home, Self Care Charges/Coding Visit Charges Inpatient E&M: 67443 Disch Hosp
[2021-05-01 06:50] LABS: Absolute Lymphocyte Count 2.19 X10^3/uL (0.83-4.51); Absolute Neutrophil Count 2.6 X10^3/uL (2.0-7.7); Basophil# 0.05 X10^3/uL; Basophil% 0.9 % (0-1); Eosinophils% 1.9 % (0-5); Hematocrit 29.9 % (37-47); Hemoglobin 9.2 g/dL (12.0-15.0); Lymphocyte # 2.19 X10^3/ul (0.83-4.51); Lymphocyte % 40.8 % (19-41); Mean Corp Hgb Conc 30.8 g/dL (32-36); Mean Corpuscular Hgb 25.3 pg (27.0-32.0); Mean Corpuscular Volume 82.1 fL (81-99); Mean Platelet Vol. 9.7 fl (6.2-12.0); Monocyte# 0.42 X10^3/uL; Monocyte% 7.8 % (0-10); NRBC Flagged by Analyzer 0 % (0-5); Neutrophil # 2.59 X10^3/uL (2.7-7.7); Neutrophil % 48.2 % (47-70); Platelet Count 439 K/mm3 (150-450); RBC Distribution Width CV 16.7 % (11.6-14.6); RBC Distribution Width SD 49.5 fl (35.1-43.9); Red Blood Count 3.64 M/mm3 (4.2-5.4); White Blood Count 5.4 K/mm3 (4.4-11.0)
[2021-05-01 07:11] LABS: AST(SGOT) 17 U/L (15-37); Alanine Aminotransfer ALT/SGPT 27 U/L (13-56); Albumin, Serum 3.5 g/dL (3.2-5.0); Alkaline Phosphatase 27 U/L (45-117); Anion Gap 8 (5-15); BUN 12 mg/dL (7-18); Calcium,Total 9.8 mg/dL (8.5-10.1); Chloride 105 mmol/L (98-107); Creatinine, Serum 0.86 mg/dL (0.55-1.02); EST Glomerular Filtration Rate 70 mL/min (>60); Est Glom Filt Rate - Afr Amer 85 mL/min (>60); Estimated Creatinine Clearance 54.81 ml/min; Globulin 3.4 g/dL (2.2-4.2); Glucose 127 mg/dL (74-106); Potassium 3.7 mmol/L (3.5-5.1); Protein, Total 6.9 g/dL (6.4-8.2); Sodium Level 137 mmol/L (136-145)
[2021-05-01 07:19] VITALS: BMI 26.0
[2021-05-01 07:50] VITALS: BP 129/72; PULSE 83; RESP 18; TEMP 36.3; O2SAT 94
[2021-05-01] MEDS: Aspirin 81 MG TAB.CHEW PO (07:55)
[2021-05-01] MEDS: Folic Acid 1 MG Tablet PO (07:55)
[2021-05-01] MEDS: Iron Polysaccharide Complex 150 MG CAPSULE PO (07:55)
[2021-05-01] MEDS: Cyanocobalamin 500 MCG Tablet 1000 MCG PO (07:55)
[2021-05-01] MEDS: Clopidogrel Bisulfate 75 MG Tablet PO (07:59)
[2021-05-01] MEDS: Lisinopril 5 MG Tablet PO (07:59)
[2021-05-01] MEDS: Fenofibrate 145 MG Tablet PO (07:59)
[2021-05-01] MEDS: Famotidine 20 MG Tablet PO (08:00)
== END 2021-05-01 10:04 | disposition home or self-care (01) | DRG 65 ==
LOC: ED 13:53 → PCU 14:10
PROVIDERS: Admitting Provider Family Medicine; Emergency Provider Emergency Medicine; Visit Provider Family Medicine
DX: I63.9 Cerebral infarction, unspecified (principal); N39.0 Urinary tract infection, site not specified; E87.2 Acidosis; R47.89 Other speech disturbances; I10 Essential (primary) hypertension; E87.6 Hypokalemia; E11.9 Type 2 diabetes mellitus without complications; E03.9 Hypothyroidism, unspecified; E05.90 Thyrotoxicosis, unspecified without thyrotoxic crisis or storm; D50.9 Iron deficiency anemia, unspecified; E53.8 Deficiency of other specified B group vitamins; E78.5 Hyperlipidemia, unspecified; F17.210 Nicotine dependence, cigarettes, uncomplicated; R29.704 NIHSS score 4; R47.01 Aphasia; R47.1 Dysarthria and anarthria; R47.81 Slurred speech; R41.0 Disorientation, unspecified; E86.0 Dehydration; E83.52 Hypercalcemia; E21.3 Hyperparathyroidism, unspecified; M85.80 Other specified disorders of bone density and structure, unspecified site; Z86.73 Personal history of transient ischemic attack (TIA), and cerebral infarction without residual deficits; Z79.84 Long term (current) use of oral hypoglycemic drugs; Z79.899 Other long term (current) drug therapy
CPT/HCPCS: 36415; 70450; 70496; 70498; 70544; 70551; 71045; 80053; 80061; 81001; 82607; 82728; 82746; 82962; 83036; 83540; 83550; 83605; 83735; 84439; 84443; 84484; 85025; 85610; 85730; 87040; 87077; 87086; 87088; 87186; 87426; 87804; 92523; 92610; 93005; 93306; 93880; 94762; 97802; 99251; 99285; 99406; J7030; Q9967; A4216; G0463

== ENCOUNTER 2021-06-02 13:00 | Outpatient (RCR) | payer MEDICARE, OTHER, SELFPAY ==
--- NOTE | 2021-05-10 13:49 | HP.PTEVAL ---
Patient's Visit Information COLLIN BATES is a 65 year old F referred to Physical Therapy by Dr. Chio Valero MD with a diagnosis of CVA. Date of Evaluation: 05/10/21 Physical Therapist: Yesi Berry PT, Cert MDT - Visit Plan Frequency: 1x/Week Duration: 1 Week Plan: EVAL ONLY. PATIENT AGREEABLE. - Subjective Work/Leisure: RETIRED. Disability: NO. Present symptoms: PATIENT REPORTS SPEECH DIFFICULTY IS HER MAIN PROBLEM. PATIENT REPORTS SHE SPEAKS PRETTY WELL BUT SHE IS HAVING TROUBLE GETTING HER THOUGHTS TOGETHER. PATIENT REPORTS SHE ISN'T HAVING ANY PHYSICAL PROBLEMS OTHER THAN SHE GETS A LITTLE TIRED. Present since: CVA 04/24/21. Pain Scale: NO PAIN OTHER THAN MAYBE SOME INTERMITTENT LIGHT EAR ACHES. NO PAIN RIGHT NOW. Commenced as a result of: NO APPARENT REASON. Symptoms at onset: COULDN'T SPEAK. Previous history/Previous treatment: NO PREVIOUS STROKES. Treatment this episode: HOSPITALIZED FOR 2 DAYS BUT SHE DIDN'T GO TO THE HOSPITAL UNTIL THE SUNDAY AFTER THE STROKE. PATIENT REPORTS SEEING THERAPISTS IN THE HOSPITAL BUT DOES NOT HAVE ANY HOME EX'S THAT SHE CAN RE-CALL. Gait: UNLIMITED. PATIENT FEELS HER ABILITY TO WALK IS NO DIFFERENT NOW THAN BEFORE THE STROKE. PMH/Recent major surgery: NIDDM, PARATHYROID REMOVAL JAN 2021. OTHER: PATIENT RPEORTS SHE REALLY DOESN'T THINK SHE NEEDS PHYSICAL THERAPY AND SHE DOESN'T REALLY WANT TO EXERCISE. - Objective THIS PATIENT AMBULATES INDEP'LY INTO PT WITHOUT ANY AD'S OR GROSS DEVIATIONS NOTED. SHE IS INDEP WITH GAIT AND TRANSFERS. HER STATIC AND DYNAMIC BALANCE IS GOOD. ABLE TO SLS ON EACH LE GREATER THAN 20 SEC'S EACH WITHOUT UE ASSIST. FOLLOWS COMMANDS WELL. JESSE LE ROM AND STRENGTH IS WFL. PATIENT DOES NOT APPEAR TO NEED PHYSICAL THERAPY AT THIS TIME. SHE HAS A SPEECH THERPAY CONSULT FOLLOWING THIS PT CONSULT TODAY AND AN OT CONSULT PENDING THIS WEEK TOO. - Balance/Special Test Scores Lower Extremity Functional Score: 80 - Goals Goal 1:: N/A - Anticipated Interventions Thank you for the opportunity to evaluate your patient. For Medicare and Medicare HMO plans, please review the plan of care and approve it. It will need to be FAXED BACK to us at [phone] for Medicare purposes. For Medicare only, by signing this I certify the plan of care. Please let me know if there are questions or concerns regarding this plan of care. Physician Signature: Date:
--- NOTE | 2021-05-16 14:58 | HP.SP.AD_ITS ---
History - History Date of Eval: 05/10/21 Medical Diagnosis (from RX): CVA Date of Onset of Diagnosis: 04/29/21 Previous speech therapy: No Smoking Status: Current every day smoker Hx Tobacco Use: Yes - Pain Is pain an issue with your current prescribed condition?: No - Personal Patients Living Arrangements: With Significant Other Patient Allergies - Allergies Allergies No Known Allergies Allergy (Verified 04/29/21 10:26) Other Impressions - Comments Quick Aphasia Battery -: The Quick Aphasia Battery (QAB) aims to provide a reliable and multidimensional assessment of language function, bridging the gap between comprehensive batteries that are time-consuming to administer, and rapid screening instruments that provide limited detail regarding individual profiles of deficits. The QAB is made up of eight subtests, each comprising sets of items that probe different language domains, vary in difficulty, and are scored with a graded system to maximize the informativeness of each item. From the eight subtests, eight summary measures are derived, which constitute a multidimensional profile of language function, quantifying strengths and weaknesses across core language domains. In a norming study, we have shown that the QAB efficiently and reliably characterizes individual profiles of language deficits. Level of consciousness - WNL. Connected speech - Connected speech characterized by reduced length/complexity of utterances (speaking in 4-6 word utterances), reduced speech rate, word-finding pauses, interjections. Throughout connected speech, patient would self correct to substitute word if experiencing word finding pauses. Mild aphasic connected speech. Word comprehension - WNL. Sentence comprehension - 36/ - incorrectly answe red 02/13 Y/N questions (i.e. Are doctors treated by patients? Are cats chased by mice?). Picture naming - WNL. Repetition - - difficulty w/ imitating 5+ sentence. Reading aloud - however decreased verbal speech rate compared to baseline per pt. Motor speech - 01/09 WNL. Overall patient presents w/ mild mixed expressive and receptive aphasia characterized by reduced length/complexity of utterances (speaking in 4-6 word utterances), reduced speech rate, word-finding pauses, and interjections. Difficulty w/ imitating 5+ word utterances and understanding complex Y/N questions. Plan - Plan Plan: Will treat 1-2x to instruct on strategies to improve overall verbal speech, increase word utterances, increase rate of speech, decrease interjections to return to PLOF. Will f/u 1-2x in a month to assess use of strategies/improvement in language function. - Recommendations MBS: No Treatment Warranted: Yes - Frequency Frequency: 1x/Week Duration: 2 Weeks - Prognosis Prognosis: Excellent - Goals that are Established: Determination:: Goals will be added/modified as deemed necessary and appropriate. Therapy will be discontinued when results of re-evaluation indicate therapy is no longer needed or lack of progress has been documented. - Goal #1-5 Goal #1: Patient will utilize learned compensatory strategies to assist w/ word retrieval during conversational speech with min prompting. Prompts: Min Goal #2: Patient will answer complex Y/N questions w/ 80% acc w/ no cues required across 2/2 sessions. Prompts: Min Goal #3: Patient will increase length and complexity (>6 word utterances) in conversational speech w/ min prompting. Education - Patient has Indicated that the Following Identified Educational Needs: None The Patient has indicated that they have no educational or learning abilities that may effect their care.: Yes - Patient Instruction Patient Education: Diagnosis, Treatment Plan, Goals
--- NOTE | 2021-05-26 12:53 | HP.OTEVAL_ITS ---
Patient's Visit Information COLLIN BATES is a 65 year old F, referred to Occupational Therapy by Dr. Chio Valero MD, with a diagnosis of CVA. Date of Evaluation: 05/12/21 Occupational Therapist: MAVERICK Luna/Aura, CHT - Subjective This 65 year old female was seen for OT eval with dx of CVA. pt states this happened on but went to Dr[facility]inal[facility] on 2020. pt states she stayed in hospital two days. pt states she could not make a coherent sentence. pt states she has noticed increase difficulty with her fine motor skills increasing need of assistance with using her cell phone and performing other daily tasks. pt would like to know what she can do to improve her ability. - ADLs Miscellaneous: Use cell phone, Use computer keyboard Comments: Reading Comments: pt lives with spouse and has returned to cooking, cleaning and doing laundry-. pt states she notices she gets some things confused like texting-. pt states she is now a slower reader or have to read a sentences over. - ROM ROM Comments: pt demo BUE ROM - Strength Chief Transfer And Pumphouse Operator: right 50# left 57# Lateral Pinch: right 6# left 8# Tripod Pinch: right 12# left 10# Tip-to-Tip Pinch: right 2# left 2# - Nine Hole Peg Right: 27.60 Left: 28.67 - Stroke Specific Quality of Life Total SS-QOL Score: 187 - Quick DASH-Disab of Arm,Shoulder& Hand Quick DASH Score: 4.5450 - Goals Goal:: pt will demo the ability to use cell phone ind. with 1 error in wording for texting by d.c. pt will demo a reduction in time with 9 hole peg test indicating she has made FM gains . Goal:: pt will report her IND with bathing/dressing and meal prep by d/c - Rehabilitation General Assessment: pt demo with limited FMS increasing need of assistance with manipulating cell phone, picking up coins etc. pt would benefit from skilled OT services 3-4 visits to ed. pt on visual compensation and ensure HEP for FMS and timed FMS. Rehabilitation Potential: Good - Anticipated Interventions Fine Motor Coord/Bhavin, Neuro Reeducation, Home Program - Visit Plan Frequency: 1x/Week Duration: 3 Weeks TEXT: Thank you for the opportunity to evaluate your patient. For Medicare and Medicare HMO plans, please review the plan of care and approve it. It will need to be FAXED BACK to us at [phone] for Medicare purposes. Please let me know if there are questions or concerns regarding this plan of care. Physician Signature: Date:
--- NOTE | 2021-08-24 12:51 | HP.SP.DC ---
ST Discharge Summary - Discharged: Discharge: Patient was initially evaluated on 05/10/21 s/p CVA. Patient presents w/ mild mixed expressive and receptive aphasia characterized by reduced length/complexity of utterances (speaking in 4-6 word utterances), reduced speech rate, word-finding pauses, and interjections. Difficulty w/ imitating 5+ word utterances and understanding complex Y/N questions. Patient has made significant progress in 2 ST sessions given skilled instruction and training on strategies to improve word finding, MLU, rate of verbal speech and reading comprehension. States that she feels that she is close to baseline - however she has been using strategies at home and practicing reading aloud / comprehension. Therapist provided direct education to f/u w/ ST in a month if condition changes/worsens - f/u appointment 06/30/21 where did not attend as she felt she was at baseline s/p CVA. Education provided to patient re: strategies, exercises to improve expressive/receptive aphasia outside of ST sessions. Education well received. D/C at this date 08/24/21.
== END 2021-06-02 19:00 | disposition home or self-care (01) ==
LOC: OT 13:00
PROVIDERS: Referring Provider Family Medicine; Visit Provider Family Medicine
DX: R47.01 Aphasia (principal); Z86.73 Personal history of transient ischemic attack (TIA), and cerebral infarction without residual deficits
CPT/HCPCS: 92507; 96105; 97162; 97166; 97530

== ENCOUNTER 2021-08-19 15:04 | Outpatient (CLI) | payer MEDICARE, OTHER, SELFPAY ==
[2021-08-19 16:49] LABS: Hematocrit 17.3 % (37-47); Mean Corp Hgb Conc 27.2 g/dL (32-36); Mean Corpuscular Hgb 18.4 pg (27.0-32.0); Mean Corpuscular Volume 67.8 fL (81-99); Mean Platelet Vol. 10.4 fl (6.2-12.0); POSITIVE COUNT YES; Platelet Count 427 K/mm3 (150-450); RBC Distribution Width CV 17.7 % (11.6-14.6); RBC Distribution Width SD 42.6 fl (35.1-43.9); Red Blood Count 2.55 M/mm3 (4.2-5.4); White Blood Count 6.6 K/mm3 (4.4-11.0)
[2021-08-19 16:53] LABS: Hemoglobin 4.7 g/dL (12.0-15.0)
[2021-08-19 17:23] LABS: BNP,B-Type NATRIURETIC PEPTIDE 215.5 pg/mL (0-100)
[2021-08-19 17:34] LABS: Anion Gap 7 (5-15); BUN 16 mg/dL (7-18); BUN/Creat Ratio 14.8 RATIO (10-20); Calcium,Total 9.2 mg/dL (8.5-10.1); Chloride 105 mmol/L (98-107); Creatinine, Serum 1.08 mg/dL (0.55-1.02); EST Glomerular Filtration Rate 54 mL/min (>60); Est Glom Filt Rate - Afr Amer 65 mL/min (>60); Glucose 160 mg/dL (74-106); Potassium 3.9 mmol/L (3.5-5.1); Sodium Level 134 mmol/L (136-145); Thyroid Stim Hormone (TSH) 0.76 uIU/mL (0.358-3.74)
[2021-08-22 14:34] LABS: Pathologist Review Reviewed
== END 2021-08-19 23:59 | disposition home or self-care (01) ==
LOC: LAB 15:05
PROVIDERS: Visit Provider Physician Assistant Medical
DX: I10 Essential (primary) hypertension (principal); I48.0 Paroxysmal atrial fibrillation; R06.02 Shortness of breath; R53.83 Other fatigue; R42 Dizziness and giddiness; Z86.73 Personal history of transient ischemic attack (TIA), and cerebral infarction without residual deficits; D64.9 Anemia, unspecified; E03.9 Hypothyroidism, unspecified
CPT/HCPCS: 36415; 80048; 83880; 84443; 85027

== ENCOUNTER 2021-08-19 17:56 | Inpatient (IN) | payer MEDICARE, OTHER, SELFPAY ==
[2021-08-19] VITALS (9 sets, daily range): BP systolic 119–126; BP diastolic 50–70; PULSE 88–97; RESP 16–18; TEMP 36.4–36.8; O2SAT 93–100; BMI 26.6; BMI 26.0
--- NOTE | 2021-08-19 18:16 | EX.ED.DYSGE1 ---
HPI <MADY Suarez - Last Filed: 08/19/21 20:40> History of Present Illness Chief Complaint: GI Bleed Narrative Narrative: 65-year-old female with PMH of HTN, HLD, A. fib, CVA presents with abnormal outpatient labs. 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 fib. Over the last month she has felt extremely fatigued, dyspneic on exertion, and had intermittent palpitations. Since she was not feeling well, 1 week ago she self discontinued her Eliquis. She is on aspirin 81 mg. Today her doctor lauren labs and her hemoglobin was 4.7. It was 9.2 in April 2021. She states her stools have looked dark for the last 3 to 4 months. She denies history of GI bleed or blood transfusions. She reports having a colonoscopy 5 years ago in [place] which showed a benign polyp. PFS <MADY Suarez - Last Filed: 08/19/21 20:40> [facility] Medical History Acute ischemic stroke Arthritis Breast cyst High cholesterol High triglycerides HTN (hypertension) Hypothyroidism Paroxysmal atrial fibrillation Tobacco use Type 2 diabetes mellitus without complications Home Medications cholecalciferol (vitamin D3) 50 mcg (2,000 unit) capsule 50 mcg PO DAILY 03/30/20 [History Last Taken 08/19/21] fenofibrate micronized 134 mg capsule 134 mg PO DAILY 03/30/20 [History Last Taken 08/19/21] glipizide 2.5 mg tablet, extended release 24 hr 2.5 mg PO DINNER 03/30/20 [History Last Taken 08/18/21] metformin 1,000 mg tablet 1,000 mg PO BID 03/30/20 [History Last Taken 08/19/21] aspirin 81 mg PO BREAKFAST 30 Days #30 tab 05/01/21 [Rx Last Taken 08/19/21] levothyroxine [Synthroid] 125 mcg PO DAILY 30 Days #30 tab 05/01/21 [Rx Last Taken 08/19/21] metoprolol tartrate 25 mg tablet 25 mg PO BID #60 tab 06/28/21 [Rx Last Taken 07/22/21] simvastatin 40 mg tablet 40 mg PO QHS tab 07/19/21 [History Last Taken 08/18/21] apixaban 5 mg tablet 5 mg PO BID #60 tab 07/20/21 [Rx Last Taken 08/12/21] Allergy/AdvReac Type Severity Reaction Status Date / Time No Known Allergies Allergy Verified 08/19/21 17:58 Family History Sister Thyroid disorder Cancer Diabetes Brother Myocardial infarction Bleeding disorder Cancer Diabetes Mother Breast cancer Other Arthritis Colon cancer Heart disease High cholesterol Surgical History History of appendectomy S/P parathyroidectomy Social History household members: spouse Smoking Status: Former smoker how long ago did patient quit smoking: April 2021 alcohol intake: current alcohol intake frequency: holidays/special occasions only substance use type: does not use caffeine: Yes Type: coffee Number of servings: 1 what type of physical activity do you participate in: none ROS <MADY Suarez - Last Filed: 08/19/21 20:40> ROS ED ROS Narrative Constitutional: Positive for malaise. Negative for fever, chills. Eyes: Negative for visual change. ENT: Negative for sore throat, ear pain, rhinorrhea. CVS: Positive for palpitations. Negative for chest pain, syncope. Respiratory: Negative for shortness of breath, cough, orthopnea. GI: Positive for melena. Negative for abdominal pain, nausea, vomiting, diarrhea, constipation, hematochezia. : Negative for dysuria, hematuria or frequency. Neuro: Negative for headache, motor/sensory dysfunction. Skin: Negative for rash, abscess, or wound. Musc: Negative for joint pain, swelling, trauma. Heme: Negative for easy bruising, bleeding, lymphadenopathy. EXAM <MADY Suarez - Last Filed: 08/19/21 20:40> Physical Exam Narrative Exam Narrative: CONST: Patient sitting in no acute distress. EYES: Normal inspection. Pale conjunctivae. NECK: Normal inspection. RESP: No respiratory distress, CTAB. CVS: Regular rate and rhythm, no murmur, no gallop. ABD: Soft and nontender, no guarding or rebound, nondistended. JONES: Small nonthrombosed external hemorrhoid with no active bleeding, small amount of stool present not grossly bloody or melanotic. No rectal masses or tenderness. Back: Normal inspection. SKIN: Color normal, no rash, warm, dry, intact. EXTREMITIES: Normal appearance, no pedal edema. NEURO: Oriented x4. PSYCH: Normal affect. Const Vital Signs: 08/19/21 17:56 Temperature 97.6 F L Temperature Source Temporal Pulse Rate 97 Respiratory Rate 16 Blood Pressure 123/50 H Blood Pressure Mean 74 Pulse Ox 100 Oxygen Delivery Method Room Air <Rishi Alejo MD - Last Filed: 08/19/21 22:44> Physical Exam Const Vital Signs: 08/19/21 17:56 Temperature 97.6 F L Temperature Source Temporal Pulse Rate 97 Respiratory Rate 16 Blood Pressure 123/50 H Blood Pressure Mean 74 Pulse Ox 100 Oxygen Delivery Method Room Air MDM <MADY Suarez - Last Filed: 08/19/21 20:40> [facility] Narrative Medical decision making narrative: Patient presents with outpatient labs showing hemoglobin of 4.7. She appears well and nontoxic. Vital signs within normal limits. On examination she is pale appearing. Heart is regular. Lungs clear. Abdomen soft and nontender. JONES showed medium brown stool and is Hemoccult positive. Hemoglobin from this morning was 4.7. BMP showed normal BUN and creatinine of 1.08 slightly increased from previous. I added on a type and screen and ordered IV fluids, Protonix, and 2 units PRBCs to be transfused as soon as available. Of note she self discontinued her Eliquis 1 week ago so now she is only on aspirin 81 mg. She will be admitted for anemia and GI bleed. Case was discussed with the hospitalist as well as Dr. Durant. Diagnoses 1. Anemia 2. GI bleed Lab Data Labs: Laboratory Results - last 24 hr 08/19/21 08/19/21 08/19/21 15:15 15:15 19:05 Immature Plt Fraction 3.6 Retic Count 2.49 H Immature Retic Fraction 30.20 H Retic Hgb Equivalent 14.8 L Iron 12 L TIBC 700 H Iron Saturation 1.7 L Ferritin 4 L Folate 13.70 Blood Type A POSITIVE Antibody Screen NEGATIVE Crossmatch See Detail <Rishi Alejo MD - Last Filed: 08/19/21 22:44> MDM MDM Narrative Medical decision making narrative: ATTENDING NOTE: Dr. Alejo: The patient was seen in conjunction with the PA-C/nurse practitioner. I performed a history and physical, and agree with the management of this patient. I agree with noted documentation and plan. I discussed the plan of care and final disposition with the physician associate/nurse practitioner. Increasing shortness of breath over weeks. Per cardiology PA, placed on Eliquis for atrial fibrillation. Patient states she has been having black stool since April. Reported hemoglobin of 4.7 today. Afebrile. Vital signs noted. Positive pallor. Type and screen. Transfuse. Admit. Lab Data Attestation: I reviewed the patient's lab results. Labs: Laboratory Results - last 24 hr 08/19/21 08/19/21 08/19/21 15:15 15:15 19:05 Immature Plt Fraction 3.6 Retic Count 2.49 H Immature Retic Fraction 30.20 H Retic Hgb Equivalent 14.8 L Iron 12 L TIBC 700 H Iron Saturation 1.7 L Ferritin 4 L Folate 13.70 Blood Type A POSITIVE Antibody Screen NEGATIVE Crossmatch See Detail Discharge Plan Disposition Disposition: Acute Care Hospital [facility] Discharge Date/Time: 08/19/21 21:25
[2021-08-19] MEDS: 0.9% Normal Saline 1,000 ML 999 ML IV (19:23)
--- NOTE | 2021-08-19 20:48 | PCM.HP.STD ---
[facility] - General General Date of Admission: 08/19/21 HPI Narrative COLLIN BATES, is a 65 F with a significant history of CVA about 3-1/2 months ago; atrial fibrillation; diabetes mellitus and hypertension who presents with low hemoglobin. Reportedly patient saw cardiology nurse practitioner because of progressively worsening dyspnea on exertion that has been going on since she had had a CVA three and a half months ago. Patient was placed on Eliquis a month ago. However about a week ago patient stopped taking her Eliquis because of her shortness of breath. Further, patient reports having black stools since the past 2 and half months ago. She denies any nausea, vomiting or hematochezia. Reportedly she strain with defecation. Seven years ago colonoscopy showed a polyp that was resected. Her last colonoscopy was done fiver years ago and it was with Dr. Watson at [place]. Her last colonoscopy reportedly was unremarkable. Emergency department provider reports dark brown stool on rectal examination that returned occult positive. [facility] Medical History Acute ischemic stroke Arthritis Breast cyst High cholesterol High triglycerides HTN (hypertension) Hypothyroidism Paroxysmal atrial fibrillation Tobacco use Type 2 diabetes mellitus without complications Home Medications cholecalciferol (vitamin D3) 50 mcg (2,000 unit) capsule 50 mcg PO DAILY 03/30/20 [History Last Taken Unknown] fenofibrate micronized 134 mg capsule 134 mg PO DAILY 03/30/20 [History Last Taken Unknown] glipizide 2.5 mg tablet, extended release 24 hr 2.5 mg PO DAILY 03/30/20 [History Last Taken Unknown] metformin 1,000 mg tablet 1,000 mg PO BID 03/30/20 [History Last Taken Unknown] aspirin 81 mg PO BREAKFAST 30 Days #30 tab 05/01/21 [Rx Last Taken Unknown] levothyroxine [Synthroid] 125 mcg PO DAILY 30 Days #30 tab 05/01/21 [Rx Last Taken Unknown] metoprolol tartrate 25 mg tablet 25 mg PO BID #60 tab 06/28/21 [Rx Last Taken Unknown] simvastatin 40 mg tablet 40 mg PO QHS tab 07/19/21 [History Last Taken Unknown] apixaban 5 mg tablet 5 mg PO BID #60 tab 07/20/21 [Rx Last Taken Unknown] Allergy/AdvReac Type Severity Reaction Status Date / Time No Known Allergies Allergy Verified 08/19/21 17:58 Family History Sister Thyroid disorder Cancer Diabetes Brother Myocardial infarction Bleeding disorder Cancer Diabetes Mother Breast cancer Other Arthritis Colon cancer Heart disease High cholesterol Surgical History History of appendectomy S/P parathyroidectomy Social History household members: spouse Smoking Status: Former smoker how long ago did patient quit smoking: April 2021 alcohol intake: current alcohol intake frequency: holidays/special occasions only substance use type: does not use caffeine: Yes Type: coffee Number of servings: 1 what type of physical activity do you participate in: none ROS ROS Narrative Constitutional: Denies fever, chills, fatigue, anorexia and change in weight Eyes: Denies blurry vision, change in eye color, change in vision, discharge from eye(s), double vision, erythema, eye pain, loss of vision or other HEENT: Denies abnormal hearing, dysphagia, ear pain, epistaxis, headache(s), hearing loss, nasal congestion, nasal discharge, post nasal drip, sinus pressure, sore throat or other Cardiovascular: Denies chest pain. She report dyspnea on exertion. Respiratory/Chest: Denies cough, excessive phlegm production, shortness of breath with exertion and wheezing Gastrointestinal: Reports melena. Denies abdominal pain, coffee ground emesis, diarrhea, dyspepsia, hematemesis, hematochezia, loose stools, nausea, vomiting or other Genitourinary: Denies burning urination, difficulty urinating, dysuria, hematuria, nocturia, urinary frequency, urinary hesitancy, urinary incontinence, urinary urgency or other Musculoskeletal: Denies arthralgias, back pain, joint pain, joint stiffness, joint swelling, myalgias, neck pain or other Neurologic: She reports memory changes with having had a stroke 3 and half months prior to presentation. Denies abnormal gait, abnormal speech, disequilibrium, dizziness, focal weakness, headache(s), numbness, paresthesias, seizure-like activity, seizures, syncope, tingling, tremor(s) or other Psychiatric: Denies anxiety, depression, homicidal ideation, suicidal ideation or other Endocrinology: Denies change in body appearance, cold intolerance, excessive sweating, heat intolerance, polydipsia, polyuria or other Hematologic/Lymphatic: Denies anemia, easy bleeding, easy bruising, lymphadenopathy or other Integumentary: Denies rashes Allergic/Immunologic: Denies rhinitis, hives, eczema, or other Vital Signs Vital Signs Vital Signs: 08/19/21 17:56 Temperature 97.6 F L Temperature Source Temporal Pulse Rate 97 Respiratory Rate 16 Blood Pressure 123/50 H Blood Pressure Mean 74 Pulse Ox 100 Oxygen Delivery Method Room Air Weight Weight: 70.307 kg Body Mass Index (BMI) 26.6 Physical Exam Narrative Physical exam: General: Well-nourished, well-developed. Head: Normocephalic, atraumatic, no tenderness Eyes: PERRLA, EOMI ENT, no trauma, moist mucous membranes, no rhinorrhea Neck: Nontender, full range of motion, no spinal tenderness, deformities, step-off CVS: Regular rate and rhythm. S1-S2 present. No murmur, gallop or rub. Respiratory : clear to auscultation bilaterally, chest wall nontender, no wheezing Abdomen: Soft, nontender, nondistended, normal bowel sounds, no masses : Deferred Back: Nontender, no CVA tenderness, no midline spinal tenderness, deformities, step-offs Extremities: Nontender full range of motion, no trauma Skin: Pale looking. Normal color, no trauma, abrasions Neuro: Alert, oriented, cranial nerves II through XII grossly intact. Psychiatry: Normal mood. Normal affect. Not depressed. Not anxious. Results Lab / Micro Data Labs: Laboratory Results - last 24 hr 08/19/21 19:05: Blood Type A POSITIVE, Antibody Screen NEGATIVE, Crossmatch See Detail Micro: Microbiology 08/19/21 19:42 Stool Stool Occult Blood (TALA) - Final Occult Blood Positive Assessment & Plan Assessment/Plan (1) ABLA (acute blood loss anemia): PLAN: Acute blood loss anemia likely secondary to GI bleed. Admit to monitored bed on MedSurg. Review outpatient labs showed hemoglobin of 4.7 with microcytosis. Received normal saline bolus at emergency department. Gentle IV hydration ordered. 2 units of packed red blood cells ordered at the emergency department. Check H&H 1 hour after second unit of blood has been transfused. Iron panel, ferritin, reticulocyte, vitamin B12 and folic acid levels ordered. Hold aspirin and Plavix. No anticoagulants for DVT prophylaxis SCD Protonix IV stat emergency department and continued. N.p.o. after midnight except essential meds. GI consult. Paroxysmal A. fib Multiple continued. Placed on telemetry. Diabetes mellitus Patient with hyperglycemia on presentation Hold Metformin and glipizide. Accu-Chek every 6 hours with correction scale insulin ordered. DVT prophylaxis: SCD ordered. Charges/Coding Visit Charges Inpatient E&M: 20572 Init Hosp L3
[2021-08-19 21:38] LABS: Immature Platelet Fraction 3.6 % (1.0-7.9); Platelet Count 415 K/mm3 (150-450); RET-HE 14.8 pg (30-35); Reticulocyte Count 2.49 % (0.5-1.5)
[2021-08-19 22:01] LABS: Ferritin 4 ng/mL (8-252); Iron 12 ug/dL (50-170); Iron Binding Capacity,Total 700 ug/dL (250-450); PERCENT IRON SATURATION 1.7 % (15.0-55.0)
[2021-08-19 22:06] LABS: Bedside Glucose 127 mg/dL (74-106)
[2021-08-19] MEDS: Metoprolol Tartrate 25 MG Tablet PO (22:56)
[2021-08-20] VITALS (20 sets, daily range): BP systolic 96–133; BP diastolic 49–64; PULSE 71–84; RESP 16–18; TEMP 36.6–37.7; O2SAT 16–98
--- NOTE | 2021-08-20 | EGD_PTH ---
PATIENT: COLLIN BATES LOC: MS3 U#:[id number] AGE/SX: 65/F ROOM: NH311 RE08/19/[address]: Dr. Lorraine Rocha MD : [id number] BED: 1 DIS: 08/20/2021 SPEC #: [id number] RECD: 08/20/21 10:32 STATUS: ZHEN DRIVER #: [id number] CANDIDA: 08/20/21 00:[address]: Lorraine Rocha DEPT: SURGICAL PATHOLOGY RECD BY: Imelda Wu ENTERED: 08/22/21 10:30 SP TYPE: EGD BIOPSY [facility] DR: MD Dr. Montrell Pedro DO Rebecca Bean, PA Tissues: Gastric mucous membrane Procedures: Surgery Specimen Level IV HEADER OPERATION: EGD ([facility] [place]) biopsy, cauterization PRE-OP DIAGNOSIS: Anemia TISSUE SUBMITTED: Gastric body MICROSCOPIC DIAGNOSIS Gastric body, biopsy: Neuroendocrine tumor, low grade. See comment. AM:wan 08/23/2021 COMMENT The results of immunohistochemistry ([id number]) support the diagnosis. Case has been reviewed in consultation with Dr. Borjas who concurs with the above diagnosis. IDC:[id number] MICROSCOPIC DESCRIPTION Slides are reviewed. GROSS DESCRIPTION Received in fixative is one container labeled with the patient's name and designated gastric body. The specimen consists of multiple irregular fragments of light lopez soft tissue that in aggregate measure 0.7 x 0.5 x 0.1 cm. The specimen is totally submitted in one cassette. / AM:wan 08/22/2021 TC:0 CPT: 39752
--- NOTE | 2021-08-20 00:45 | NURSING ---
AUDIBLE WHEEZES NOTED AFTER 1ST UNIT PRBCS COMPLETED. DR SIMMS NOITIFED & NEW ORDERS RECEIVED.
[2021-08-20] MEDS: Furosemide 40 MG/4 ML Vial IV ×2 (00:49→13:13)
[2021-08-20] MEDS: 0.9% Saline Lock 10 ML Syringe IV ×2 (00:50→13:13)
--- NOTE | 2021-08-20 00:50 | RAD_ITS ---
STUDY: X-RAY CHEST REASON FOR EXAM: Female, 65 years old. WHEEZING TECHNIQUE: Single AP portable view of the chest. COMPARISON: 04/29/2021. FINDINGS: Mild prominence of the pulmonary vasculature and interstitial markings. No focal infiltrate is seen. Probable trace of right pleural effusion. Stable cardiac silhouette. Normal mediastinum and hetal. Normal visualized pulmonary arteries. Mild atherosclerotic is patient''s of the aortic arch. Unchanged osseous structures. There is no demonstrated abnormality of the visualized soft tissue structures of the upper abdomen. RAD/Chest 1 View (Portable) IMPRESSION: Pulmonary venous congestion and interstitial pulmonary edema. Electronically Signed: Nic Loja MD at 15:23 EDT ,
[2021-08-20] MEDS: 0.9% Normal Saline 1,000 ML 75 ML IV ×2 (04:49→10:32)
--- NOTE | 2021-08-20 06:00 | EKG12_ITS ---
Test Reason : A.M. EKG Blood Pressure : / mmHG Vent. Rate : 072 BPM Atrial Rate : 072 BPM P-R Int : 178 ms QRS Dur : 114 ms QT Int : 454 ms P-R-T Axes : 063 -15 044 degrees QTc Int : 497 ms Normal sinus rhythm Incomplete left bundle branch block Nonspecific ST and T wave abnormality Prolonged QT Abnormal ECG Confirmed by MARILOU MAYORGA, NIALL ([id number]), editor in chief RICARDO KUMAR ([id number]) on 08/23/2021 10:43:04 AM Referred By: DEMI Confirmed By:NIALL ZAMARRIPA MD
[2021-08-20 06:39] LABS: Hematocrit 23.2 % (37-47)
[2021-08-20 06:44] LABS: International Normalized Ratio 1.1; Prothrombin Time (Protime)PT. 13.8 SECONDS (11.7-14.9)
[2021-08-20] MEDS: Levothyroxine 125 MCG Tablet PO (06:44)
[2021-08-20 06:45] LABS: Partial Thromboplast Time 30.9 Seconds (24.1-36.2)
[2021-08-20 06:56] LABS: Bedside Glucose 136 mg/dL (74-106)
[2021-08-20 06:57] LABS: Anion Gap 4 (5-15); BUN 11 mg/dL (7-18); Calcium,Total 8.9 mg/dL (8.5-10.1); Chloride 105 mmol/L (98-107); EST Glomerular Filtration Rate 59 mL/min (>60); Est Glom Filt Rate - Afr Amer 71 mL/min (>60); Estimated Creatinine Clearance 49.12 ml/min; Glucose 122 mg/dL (74-106); Potassium 3.6 mmol/L (3.5-5.1); Sodium Level 136 mmol/L (136-145)
[2021-08-20 07:04] LABS: Hemoglobin A1c 6.6 % (3.8-5.6)
[2021-08-20 07:12] LABS: Thyroid Stim Hormone (TSH) 1.45 uIU/mL (0.358-3.74)
--- NOTE | 2021-08-20 07:26 | PCM.PN.HOSP ---
Subjective Subjective Follow-up for acute GI bleed: Patient was seen and examined. She denied any more melena stools. She was transfused 2 units of packed RBCs overnight. She denied any dizziness or palpitations or chest pain or shortness of breath. Patient had EGD and colonoscopy today -endings were that of reflux esophagitis, Dieulafoy lesion of the stomach, nonbleeding gastric ulcer with no stigmata of bleeding which was biopsied, normal second portion of duodenum. Objective Data Objective Data Vital Signs: Vital Signs Temp Pulse Resp BP Pulse Ox 98.3 F 72 18 110/58 L 94 08/20/21 06:47 08/20/21 06:47 08/20/21 06:47 08/20/21 06:47 08/20/21 06:47 Oxygen Delivery Method Room Air Weight: 71 kg Body Mass Index (BMI) 26.0 Intake & Output: Intake and Output for Last 24 Hours 08/18/21 08/19/21 08/20/21 23:59 23:59 23:59 Intake Total 1092.35 / 1212.35 150 / 150 Output Total 2950 / 2950 Balance 1092.35 / 1212.35 -2800 / -2800 Lab / Micro Data Result Diagrams: 08/20/21 06:15 08/20/21 06:15 Labs: Laboratory Results - last 24 hr 08/19/21 15:15: Immature Plt Fraction 3.6, Retic Count 2.49 H, Immature Retic Fraction 30.20 H, Retic Hgb Equivalent 14.8 L 08/19/21 15:15: Iron 12 L, TIBC 700 H, Iron Saturation 1.7 L, Ferritin 4 L, Folate 13.70 08/19/21 19:05: Blood Type A POSITIVE, Antibody Screen NEGATIVE, Crossmatch See Detail 08/19/21 21:52: POC Glucose 127 H 08/20/21 06:15: Sodium 136, Potassium 3.6, Chloride 105, Carbon Dioxide 27.0, Anion Gap 4 L, BUN 11, Creatinine 1.00, Estim Creat Clear Calc 49.12, Est GFR (MDRD) Af Amer 71, Est GFR (MDRD) Non-Af 59 L, BUN/Creatinine Ratio 11.0, Glucose 122 H, Calcium 8.9 08/20/21 06:15: PT 13.8, INR 1.1, APTT 30.9 08/20/21 06:15: TSH 1.45 08/20/21 06:15: Hemoglobin A1c 6.6 H 08/20/21 06:15: Hgb 7.0 L, Hct 23.2 L 08/20/21 06:42: POC Glucose 136 H Micro: Microbiology 08/19/21 19:42 Stool Stool Occult Blood (TALA) - Final Occult Blood Positive Physical Exam Narrative Physical exam: General: Alert, Oriented x3, Cooperative, No apparent distress, Well developed HEENT: Atraumatic Oral: Moist Mucosa Neck: Supple Lungs: Clear to auscultation Cardiovascular: HS I+II, regular, no murmurs Abdomen: Bowel Sounds Present, Soft, Non Tender Extremities: No edema Assessment & Plan Assessment/Plan (1) ABLA (acute blood loss anemia): PLAN: 1. Acute blood loss anemia/severe iron deficiency anemia secondary to Acute GI bleed. Patient was admitted with hemoglobin of 4.7. Status post 2 units of packed RBC. Repeat hemoglobin 7.0 We will transfuse 1 unit of packed RBC, Lasix 40 mg IV x1 Continue to monitor off Eliquis and aspirin Trend H&H, repeat blood work in am 2. Acute GI bleed likely secondary to gastric ulcer Status post EGD today Continue on PPI and sucralfate GI follow 3. Paroxysmal atrial fibrillation, rate controlled, continue metoprolol, Continue to monitor off Eliquis and aspirin 4. Hypothyroidism, continue Synthroid 5. Type II DM, blood sugars are fairly controlled, HbA1c 6.6 Continue to hold off Metformin and glipizide Continue insulin sliding scale with blood glucose checks 6. DVT prophylaxis-SCDs Charges/Coding Visit Charges Inpatient E&M: 84191 Subs Hosp L2
--- NOTE | 2021-08-20 09:35 | CON.PCM.GI_ITS ---
HPI Consult Data Date of Consult: 08/20/21 HPI Narrative HPI Narrative: COLLIN BATES, is a 65 F who presents to the emergency room with progressive fatigue and weakness. She has a past medical history of paroxysmal atrial fibrillation possibly resulting in an acute CVA. She only had dysarthria from the CVA. The CVA occurred approximately 4 months ago. She has been maintained on Eliquis 5 mg twice a day. She did have a colonoscopy a 5 years ago and it was unremarkable except for a adenomatous polyp. She does take aspirin 81 mg along with Eliquis on a day basis. She also has type 2 diabetes and is controlled on oral medications. Her hemoglobin in the ED was 4.6. She had transfused 2 units of packed red blood cells and it increased to 7. At this time she is not having any signs of GI bleeding. [facility] Medical History Acute ischemic stroke Arthritis Breast cyst High cholesterol High triglycerides HTN (hypertension) Hypothyroidism Paroxysmal atrial fibrillation Tobacco use Type 2 diabetes mellitus without complications Home Medications cholecalciferol (vitamin D3) 50 mcg (2,000 unit) capsule 50 mcg PO DAILY 03/30/20 [History Last Taken 08/19/21] fenofibrate micronized 134 mg capsule 134 mg PO DAILY 03/30/20 [History Last Taken 08/19/21] glipizide 2.5 mg tablet, extended release 24 hr 2.5 mg PO DINNER 03/30/20 [History Last Taken 08/18/21] metformin 1,000 mg tablet 1,000 mg PO BID 03/30/20 [History Last Taken 08/19/21] aspirin 81 mg PO BREAKFAST 30 Days #30 tab 05/01/21 [Rx Last Taken 08/19/21] levothyroxine [Synthroid] 125 mcg PO DAILY 30 Days #30 tab 05/01/21 [Rx Last Taken 08/19/21] metoprolol tartrate 25 mg tablet 25 mg PO BID #60 tab 06/28/21 [Rx Last Taken 07/22/21] simvastatin 40 mg tablet 40 mg PO QHS tab 07/19/21 [History Last Taken 08/18/21] apixaban 5 mg tablet 5 mg PO BID #60 tab 07/20/21 [Rx Last Taken 08/12/21] Allergy/AdvReac Type Severity Reaction Status Date / Time No Known Allergies Allergy Verified 08/19/21 17:58 Family History Sister Thyroid disorder Cancer Diabetes Brother Myocardial infarction Bleeding disorder Cancer Diabetes Mother Breast cancer Other Arthritis Colon cancer Heart disease High cholesterol Surgical History History of appendectomy S/P parathyroidectomy Social History household members: spouse Smoking Status: Former smoker how long ago did patient quit smoking: April 2021 alcohol intake: current alcohol intake frequency: holidays/special occasions only substance use type: does not use caffeine: Yes Type: coffee Number of servings: 1 what type of physical activity do you participate in: none ROS Gastrointestinal Gastrointestinal: Reports melena Physical Exam Const alert General Appearance: cooperative Orientation / Consciousness: oriented to person HEENT hearing grossly normal bilaterally Head and Scalp: normal to inspection Face and Sinus: face symmetric Nose: external nose normal Mouth: oral and palatal mucosa normal Eyes conjunctivae normal General Eye: normal appearance of both eyes Neck full ROM General: normal visual inspection Lymph Lymphatic: no lymphadenopathy noted Chest inspection of chest normal and palpation of chest normal Chest: symmetrical chest wall rise Resp normal respiratory effort Effort and Inspection: able to speak in complete sentences Cardio regular rate GI non-distended Percussion: normal to percussion Rectal Exam: deferred Neuro Speech: speech normal Gait (Neuro): normal gait Lab / Micro Data Result Diagrams: 08/20/21 06:15 08/20/21 06:15 Labs: Laboratory Results - last 24 hr 08/19/21 15:15: Immature Plt Fraction 3.6, Retic Count 2.49 H, Immature Retic Fraction 30.20 H, Retic Hgb Equivalent 14.8 L 08/19/21 15:15: Iron 12 L, TIBC 700 H, Iron Saturation 1.7 L, Ferritin 4 L, Folate 13.70 08/19/21 19:05: Blood Type A POSITIVE, Antibody Screen NEGATIVE, Crossmatch See Detail 08/19/21 21:52: POC Glucose 127 H 08/20/21 06:15: Sodium 136, Potassium 3.6, Chloride 105, Carbon Dioxide 27.0, Anion Gap 4 L, BUN 11, Creatinine 1.00, Estim Creat Clear Calc 49.12, Est GFR (MDRD) Af Amer 71, Est GFR (MDRD) Non-Af 59 L, BUN/Creatinine Ratio 11.0, Glucose 122 H, Calcium 8.9 08/20/21 06:15: PT 13.8, INR 1.1, APTT 30.9 08/20/21 06:15: TSH 1.45 08/20/21 06:15: Hemoglobin A1c 6.6 H 08/20/21 06:15: Hgb 7.0 L, Hct 23.2 L 08/20/21 06:42: POC Glucose 136 H Micro: Microbiology 08/19/21 19:42 Stool Stool Occult Blood (TALA) - Final Occult Blood Positive Assessment & Plan Assessment/Plan (1) Anemia: PLAN: Differential diagnosis for microcytic anemia in the setting of anticoagulation and antiplatelet therapy would be gastric ulcer, duodenal ulcer, AVM, angiodysplasia in upper GI tract or lower GI tract. It is less likely that she has any malignancy however cannot be ruled out with a history of polyps. She should undergo an upper endoscopy. She was explained alternatives, risk, benefits including not withstanding bleeding, infection, sepsis, perforation, need for emergent surgery . She will have an ASA of 3. Charges/Coding Visit Charges Inpatient E&M: 77828 Init Hosp L2
--- NOTE | 2021-08-20 10:29 | OP.CCLET_ITS ---
03/01/2022 Urbano Merrill Re : Upper GI endoscopy procedure for Xiomara Anner Keven This procedure was performed on Friday, August 20, 2021. My impressions and recommendations are as follows: Impressions : - LA Grade A reflux esophagitis. - Dieulafoy lesion of stomach. - Non-bleeding gastric ulcer with no stigmata of bleeding. Biopsied. - Normal second portion of the duodenum. Recommendations : - Written discharge instructions were provided to the patient. - The signs and symptoms of potential delayed complications were discussed with the patient. - Patient has a contact number available for emergencies. - Return to normal activities tomorrow. - Clear liquid diet today. - No anticoagulation or antiplatelets aspirin, ibuprofen, naproxen, or other non-steroidal anti-inflammatory drugs for 7 days. - Await pathology results. My findings are described in the full procedure note, which is enclosed. If I can be of further assistance, please feel free to contact me at . Sincerely, Montrell Durant DO 08/20/2021 10:29:00 AM This report has been signed electronically.
--- NOTE | 2021-08-20 10:29 | OP.EGD_ITS ---
Patient Name: Xiomara Zapien Procedure Date: 08/20/2021 9:57 AM Date of : 1955 Age: 65 Procedure: Upper GI endoscopy Indications: Iron deficiency anemia Providers: Montrell Durant DO Medicines: See the Anesthesia note for documentation of the administered medications Patient Profile: This is a 65 year old female. Refer to note in patient chart for documentation of history and physical. Patient has symptoms. She is status post colonoscopy for polyp removal. Complications: No immediate complications. Procedure: Pre-Anesthesia Assessment: - Prior to the procedure, a History and Physical was performed, and patient medications and allergies were reviewed. The risks and benefits of the procedure and the sedation options and risks were discussed with the patient. All questions were answered and informed consent was obtained. Patient identification and proposed procedure were verified by the physician. Mental Status Examination: alert and oriented. Airway Examination: normal oropharyngeal airway and neck mobility. Respiratory Examination: clear to auscultation. CV Examination: normal. Prophylactic Antibiotics: The patient does not require prophylactic antibiotics. Prior Anticoagulants: The patient has taken no previous anticoagulant or antiplatelet agents. After reviewing the risks and benefits, the patient was deemed in satisfactory condition to undergo the procedure. The anesthesia plan was to use moderate sedation / analgesia (conscious sedation). Immediately prior to administration of medications, the patient was re-assessed for adequacy to receive sedatives. The heart rate, respiratory rate, oxygen saturations, blood pressure, adequacy of pulmonary ventilation, and response to care were monitored throughout the procedure. The physical status of the patient was re-assessed after the procedure. After obtaining informed consent, the endoscope was passed under direct vision. Throughout the procedure, the patient's blood pressure, pulse, and oxygen saturations were monitored continuously. The gastroscope was introduced through the mouth, and advanced to the second part of duodenum. The upper GI endoscopy was accomplished without difficulty. The patient tolerated the procedure well. Moderate Sedation: Moderate (conscious) sedation was administered by the endoscopy nurse and supervised by the endoscopist. The patient's oxygen saturation, heart rate, blood pressure and response to care were monitored. Total physician intraservice time was 15 minutes. Scope In: 10:09:30 AM Scope Out: 10:21:16 AM Total Procedure Duration Time 0 hours 11 minutes 46 seconds Findings: LA Grade A (one or more mucosal breaks less than 5 mm, not extending between tops of 2 mucosal folds) esophagitis with no bleeding was found 38 to 40 cm from the incisors. A Dieulafoy lesion with oozing bleeding and stigmata of recent bleeding was found in the gastric body. Coagulation for hemostasis using heater probe was successful. Estimated blood loss was minimal. One non-bleeding cratered gastric ulcer with no stigmata of bleeding was found in the gastric body. The lesion was 6 mm in largest dimension. Biopsies were taken with a cold forceps for histology. Verification of patient identification for the specimen was done. Estimated blood loss was minimal. The second portion of the duodenum was normal. Impression: - LA Grade A reflux esophagitis. - Dieulafoy lesion of stomach. - Non-bleeding gastric ulcer with no stigmata of bleeding. Biopsied. - Normal second portion of the duodenum. Recommendation: - Written discharge instructions were provided to the patient. - The signs and symptoms of potential delayed complications were discussed with the patient. - Patient has a contact number available for emergencies. - Return to normal activities tomorrow. - Clear liquid diet today. - No anticoagulation or antiplatelets aspirin, ibuprofen, naproxen, or other non-steroidal anti-inflammatory drugs for 7 days. - Await pathology results. Procedure Code(s): --- Professional --- 36785, 59, Esophagogastroduodenoscopy, flexible, transoral; with control of bleeding, any method 59897, Esophagogastroduodenoscopy, flexible, transoral; with biopsy, single or multiple 38196, 59, Moderate sedation services provided by the same physician or other qualified health care associate performing the diagnostic or therapeutic service that the sedation supports, requiring the presence of an independent trained observer to assist in the monitoring of the patient's level of consciousness and physiological status; initial 15 minutes of intraservice time, patient age 5 years or older CPT copyright 2017 [employer]. All rights reserved. The codes documented in this report are preliminary and upon medical billing coordinator review may be revised to meet current compliance requirements. Montrell Durant DO 08/20/2021 10:29:00 AM This report has been signed electronically. Number of Addenda: 1 Note Initiated On: 08/20/2021 9:57 AM Addendum Number: 1 Addendum Date: 03/01/2022 6:23:25 AM MAC was used as sedation for this procedure. Montrell Durant DO 03/01/2022 6:23:29 AM This report has been signed electronically.
--- NOTE | 2021-08-20 10:35 | IMM_PTH ---
PATIENT: COLLIN BATES LOC: MS3 U#:[id number] AGE/SX: 65/F ROOM: CA311 RE08/19/[address]: Dr. Lorraine Rocha MD : 1955 BED: 1 DIS: 08/20/2021 SPEC #: [id number] RECD: 08/22/21 13:43 STATUS: SOU[place] REQ #: [id number] CANDIDA: 08/20/21 10:[address]: Ra Bhargavhsaan DEPT: IMMUNOHISTOCHEMISTRY RECD BY: Valeri Ayers ENTERED: 08/22/21 13:44 SP TYPE: IMMUNO OTHR DR: MD Dr. Stevenson Daley MD Rebecca Bean, PA Tissues: Stomach, NOS Procedures: Synapto (add) H Pylori (initial) CD45 (add) CD56 (add) CEA (add) CHROMO (add) CK20 (add) CK7 (add) CK8 (add) ROBERTS-2 (add) KI-67 (add) Pankeratin (add) CDX2 (add) NSE (add) PHYSICIAN & INSTITUTION [address] [address] SPECIMEN INFORMATION: Tissue Source: Gastric body Clinical Info: Rachna Specimen Number: [id number] CPT code: 95733, 07569 x13 METHODOLOGY: Deparaffinized sections of prefer/formalin-fixed tissue or PAP/DQ stained slides are incubated with monoclonal/polyclonal antibodies/oligonucleotide probes. Localization is made via biotin free immunoperoxidase method. Appropriate controls are performed and reacted as expected. Results on target cell population are indicated in the following table: RESULTS: ANTIBODY / CLONE RESULT H Pylori (polyclonal) negative AE1-3 (AE1/AE3/PCK26) positive CK7 (OV-TL12/30) negative CK8 (94arddM68) positive CK20 (KS20.8) negative ROBERTS-2 (SP21) positive CDX2 (EVN8970O) negative CD45 (RP2/18) negative CD56 (123C3.D5) positive Chromo (LK2H10) positive Synapto (polyclonal) positive NSE Neuron Specific Enolase positive CEA (11-7/TF-3HB-1) negative Ki-67 (30-9) positive, 5% These tests were developed and their performance characteristics determined by [facility]. They may not have been cleared or approved by the U.S. Food and Drug Administration. The FDA has determined that such clearance or approval is not necessary. The above immunohistochemical/dualISH markers are ordered and reviewed by the pathologist. INTERPRETATION: Gastric body, biopsy: Neuroendocrine tumor, low grade. Negative for Helicobacter pylori organisms. Case has been reviewed in consultation with Dr. Borjas who concurs with the above diagnosis. IDC:SCOTT AM:wan 08/24/2021
[2021-08-20] MEDS: Pantoprazole Sodium 40 MG Tablet PO (13:01)
[2021-08-20 13:06] LABS: Bedside Glucose 146 mg/dL (74-106)
--- NOTE | 2021-08-20 13:30 | CASEMGMT ---
RN RENE Face to Face with patient for initial transition planning/care coordination assessment. RN CM introduced self and role at [facility]. Patient lying in bed, alert and oriented, at bedside. Patient willing to participate in assessment and is able to answer all questions appropriately. Care providers, pharmacy, and demographics verified. Patient wishes to discharge home, denies need for home health at this time. Patient states she has no further needs or concerns at this time. CM to follow for discharge planning needs that may arise. PCP: Brooke Baca [employer] Specialists: none [facility]erred [email or web address] Prescription Benefit: yes Living Will/HPOA: none LNOK: Living Arrangements: Patient lives with in a 2 story home. Patient states she is independent and able to ambulate stairs. Transportation: self/ DME/HHC: Patient denies DME. No previous HHC Disposition Plan: Patient to discharge home with family support and follow-up plans in place. Chhaya JIMENEZ, RN, CM
[2021-08-20] MEDS: Sucralfate 1 GM Tablet PO (16:20)
[2021-08-20] MEDS: Insulin Lispro 100 UNIT/ML INSULN.PEN SC (16:27)
--- NOTE | 2021-08-20 16:30 | NURSING ---
This RN ordered H&H to be done by lab at 1800 today per orders to be done 2hrs after 3rd bag of PRBC infused. 3rd bag of PRBC was done infusing at 1600 today 08/20
[2021-08-20 16:40] LABS: Bedside Glucose 158 mg/dL (74-106)
--- NOTE | 2021-08-20 17:53 | PCM.DC ---
Discharge Instructions Diet Discharge Diet: 2000 Calorie Control Diet and 2000 mg Sodium Diet Activity Discharge Activity: Return to Normal Activity Follow Up Care Test Results: Test results from this visit will be discussed in further detail at your follow-up appointment, if applicable. Discharge Plan Admission Admit Date/Time: 08/19/21 20:35 Primary Reason for Your Visit: Acute GI bleed Attending Provider: Lorraine Rocha Primary Care Provider: Brooke Baca Consulting Providers: Montrell Durant Instructions Additional Instructions / Restrictions: Take note of changes to your medications. Follow-up with Dr. Durant in a week. Follow-up with your primary care doctor also within a week to get repeat blood work to follow-up on your blood counts. Discharge Orders/Prescriptions Prescriptions: New sucralfate 1 gram Tablet 1 g PO TIDAC 30 Days Qty: 90 RF: 0 pantoprazole 40 mg Tablet,Delayed Release (Dr/Ec) 40 mg PO BID 30 Days Qty: 60 RF: 0 ferrous sulfate 325 mg (65 mg iron) tablet,delayed release (DR/EC) 325 mg PO DAILY 30 Days Qty: 30 RF: 0 docusate sodium [Colace] 100 mg capsule 100 mg PO BID 30 Days Qty: 60 RF: 0 Continued metformin 1,000 mg tablet 1,000 mg PO BID RF: 0 glipizide 2.5 mg tablet extended release 24hr 2.5 mg PO DINNER RF: 0 fenofibrate micronized 134 mg capsule 134 mg PO DAILY RF: 0 cholecalciferol (vitamin D3) 50 mcg (2,000 unit) capsule 50 mcg PO DAILY RF: 0 simvastatin 40 mg tablet 40 mg PO QHS RF: 0 levothyroxine [Synthroid] 125 mcg tablet 125 mcg PO DAILY 30 Days Qty: 30 RF: 0 metoprolol tartrate 25 mg tablet 25 mg PO BID Qty: 60 RF: 6 Hold Instructions: Fatigue, SOB Discontinued Eliquis 5 mg tablet 5 mg PO BID Qty: 60 RF: 3 aspirin 81 mg Tablet,Chewable 81 mg PO BREAKFAST 30 Days Qty: 30 RF: 0 Referrals / Follow Up: Montrell Durant DO [STAFF PHYSICIAN] - In 1 Week Brooke Baca PA [Primary Care Provider] - Within 1 Week Disposition Disposition (needs filled in before D/C Order can be placed): Home, Self Care
--- NOTE | 2021-08-20 17:54 | DS.PCM_ITS ---
Providers Date of Admission: 08/19/21 Date of Discharge: 08/20/21 Primary Care Physician: MADY Merrill Consultations 08/19/21 21:45 Consult: Gastroenterology Routine Consulting Provider: Montrell Durant Reason for Consult: ABLA EMERGENT Consult: No MD Notified: Yes Date Notified: 08/20/21 Time Notified: 06:33 Method of Notification: Text Reason For Visit: ACUTE GI BLEED Diagnosis Discharge Diagnosis (1) ABLA (acute blood loss anemia): Status: Acute Code(s): D62 - Acute posthemorrhagic anemia (2) GI bleed: Status: Acute Code(s): K92.2 - Gastrointestinal hemorrhage, unspecified (3) Anemia: Status: Acute Code(s): D64.9 - Anemia, unspecified Medications at Discharge Home Medications cholecalciferol (vitamin D3) 50 mcg (2,000 unit) capsule 50 mcg PO DAILY 0 fenofibrate micronized 134 mg capsule 134 mg PO DAILY 03/30/20 glipizide 2.5 mg tablet, extended release 24 hr 2.5 mg PO DINNER 03/30/20 metformin 1,000 mg tablet 1,000 mg PO BID 03/30/20 levothyroxine [Synthroid] 125 mcg PO DAILY 30 Days #30 tab 05/01/21 metoprolol tartrate 25 mg tablet 25 mg PO BID #60 tab 06/28/21 simvastatin 40 mg tablet 40 mg PO QHS tab 07/19/21 docusate sodium 100 mg PO BID PRN 30 Days #60 cap 08/20/21 ferrous sulfate 325 mg PO DAILY 30 Days #30 tab 08/20/21 pantoprazole 40 mg PO BID 30 Days #60 tab 08/20/21 sucralfate 1 g PO TIDAC 30 Days #90 tab 08/20/21 Hospital Course Operations None Procedures None Summary of Care Provided Minutes Spent on Discharge: 35 Hospital Course: 65-year-old female past medical history of paroxysmal atrial fibrillation, recent stroke, on Eliquis and aspirin who comes in with a low hemoglobin. Her stroke was 3 and half months ago. She was started on Eliquis a bout a month ago. Patient however stopped taking Eliquis a week prior to admission. She admitted to having melena stools. Her hemoglobin on admission was 4.7. She was admitted to the [facility] floor and transfused a total of 3 units of packed RBCs. Patient underwent EGD that showed reflux esophagitis, Dieulafoy lesion of the stomach, nonbleeding gastric ulcer with no stigmata of bleeding. Her posttransfusion hemoglobin was 8.6. She was discharged home on PPI twice daily, sucralfate, oral iron with stool softeners. She would follow-up with gastroenterology in 1 week. She was discharged off aspirin and Eliquis. Patient was discharged home earlier than anticipated as she had her EGD next day after admission; remained stable, asymptomatic, after her blood transfusion. Physical Exam Narrative See progress note of the day Weight / BMI Weight Weight: 71 kg Body Mass Index (BMI) 26.0 ABG / Lab / Microbiology Data Result Diagrams: 08/20/21 18:25 08/20/21 06:15 Laboratory: Laboratory Results - last 24 hr 08/19/21 15:15: Immature Plt Fraction 3.6, Retic Count 2.49 H, Immature Retic Fraction 30.20 H, Retic Hgb Equivalent 14.8 L 08/19/21 15:15: Iron 12 L, TIBC 700 H, Iron Saturation 1.7 L, Ferritin 4 L, Folate 13.70 08/19/21 19:05: Blood Type A POSITIVE, Antibody Screen NEGATIVE, Crossmatch See Detail 08/19/21 19:05: Crossmatch See Detail 08/19/21 21:52: POC Glucose 127 H 08/20/21 06:15: Sodium 136, Potassium 3.6, Chloride 105, Carbon Dioxide 27.0, Anion Gap 4 L, BUN 11, Creatinine 1.00, Estim Creat Clear Calc 49.12, Est GFR (MDRD) Af Amer 71, Est GFR (MDRD) Non-Af 59 L, BUN/Creatinine Ratio 11.0, Glucose 122 H, Calcium 8.9 08/20/21 06:15: PT 13.8, INR 1.1, APTT 30.9 08/20/21 06:15: TSH 1.45 08/20/21 06:15: Hemoglobin A1c 6.6 H 08/20/21 06:15: Hgb 7.0 L, Hct 23.2 L 08/20/21 06:42: POC Glucose 136 H 08/20/21 12:59: POC Glucose 146 H 08/20/21 16:16: POC Glucose 158 H Microbiology: Microbiology 08/19/21 19:42 Stool Stool Occult Blood (TALA) - Final Occult Blood Positive Radiography Diagnostic Testing: Radiology Impression Chest X-Ray 08/20/21 00:50 IMPRESSION: Pulmonary venous congestion and interstitial pulmonary edema. Electronically Signed: Nic Loja MD at 15:23 EDT , D/C Instructions Discharge Diet: 2000 Calorie Control Diet and 2000 mg Sodium Diet Meaningful Use Info Meaningful Use Diagnoses (Choose all that apply): None applicable Discharge Plan Admission Admit Date/Time: 08/19/21 20:35 Primary Reason for Your Visit: Acute GI bleed Attending Provider: Lorraine Rocha Primary Care Provider: Brooke Baca Consulting Providers: Montrell Durant Instructions Additional Instructions / Restrictions: Take note of changes to your medications. Follow-up with Dr. Durant in a week. Follow-up with your primary care doctor also within a week to get repeat blood work to follow-up on your blood counts. Discharge Orders/Prescriptions Prescriptions: New pantoprazole 40 mg Tablet,Delayed Release (Dr/Ec) 40 mg PO BID 30 Days Qty: 60 RF: 0 ferrous sulfate 325 mg (65 mg iron) tablet 325 mg PO DAILY 30 Days Qty: 30 RF: 0 sucralfate 1 gram Tablet 1 g PO TIDAC 30 Days Qty: 90 RF: 0 docusate sodium 100 mg capsule 100 mg PO BID PRN (Reason: constipation) 30 Days Qty: 60 RF: 0 Continued metformin 1,000 mg tablet 1,000 mg PO BID RF: 0 glipizide 2.5 mg tablet extended release 24hr 2.5 mg PO DINNER RF: 0 fenofibrate micronized 134 mg capsule 134 mg PO DAILY RF: 0 cholecalciferol (vitamin D3) 50 mcg (2,000 unit) capsule 50 mcg PO DAILY RF: 0 simvastatin 40 mg tablet 40 mg PO QHS RF: 0 levothyroxine [Synthroid] 125 mcg tablet 125 mcg PO DAILY 30 Days Qty: 30 RF: 0 metoprolol tartrate 25 mg tablet 25 mg PO BID Qty: 60 RF: 6 Hold Instructions: Fatigue, SOB Discontinued Eliquis 5 mg tablet 5 mg PO BID Qty: 60 RF: 3 aspirin 81 mg Tablet,Chewable 81 mg PO BREAKFAST 30 Days Qty: 30 RF: 0 Referrals / Follow Up: Montrell Durant DO [STAFF PHYSICIAN] - In 1 Week Brooke Baca PA [Primary Care Provider] - Within 1 Week Disposition Disposition (needs filled in before D/C Order can be placed): Home, Self Care Charges/Coding Visit Charges Inpatient E&M: 89517 Disch Hosp
[2021-08-20 18:39] LABS: Hematocrit 27.6 % (37-47); Hemoglobin 8.6 g/dL (12.0-15.0)
[2021-08-22 09:19] LABS: Vitamin B12 266 pg/mL (211-911)
== END 2021-08-20 19:30 | disposition home or self-care (01) | DRG 377 ==
LOC: ED 20:43 → MS3 20:56
PROVIDERS: Anesthesiology; Internal Medicine Gastroenterology; Admitting Provider Hospitalist; Emergency Provider Physician Assistant; Visit Provider Internal Medicine
PROC: 0DJ08ZZ Inspection of Upper Intestinal Tract, Via Natural or Artificial Opening Endoscopic (ICD-10-PCS; CPT 43235; principal; 2021-08-20 10:30)
DX: K31.82 Dieulafoy lesion (hemorrhagic) of stomach and duodenum (principal); K21.01 Gastro-esophageal reflux disease with esophagitis, with bleeding; D62 Acute posthemorrhagic anemia; C7A.8 Other malignant neuroendocrine tumors; K25.3 Acute gastric ulcer without hemorrhage or perforation; E11.65 Type 2 diabetes mellitus with hyperglycemia; I48.0 Paroxysmal atrial fibrillation; D50.9 Iron deficiency anemia, unspecified; E03.9 Hypothyroidism, unspecified; E78.5 Hyperlipidemia, unspecified; I10 Essential (primary) hypertension; M19.90 Unspecified osteoarthritis, unspecified site; I69.922 Dysarthria following unspecified cerebrovascular disease; Z79.82 Long term (current) use of aspirin; Z79.84 Long term (current) use of oral hypoglycemic drugs; Z79.890 Hormone replacement therapy; Z87.891 Personal history of nicotine dependence
CPT/HCPCS: 36415; 71045; 80048; 82274; 82607; 82728; 82746; 82962; 83036; 83540; 83550; 83880; 84443; 85014; 85018; 85027; 85045; 85610; 85730; 86850; 86900; 86901; 86920; 86922; 88305; 88341; 88342; 93005; 99283; J7030; J7040; P9016; A4216; J1940

== ENCOUNTER 2021-09-07 15:42 | Outpatient (CLI) | payer MEDICARE, OTHER, SELFPAY ==
--- NOTE | 2021-09-07 15:45 | CT_ITS ---
STUDY: CT CHEST, ABDOMEN T PELVIS WITH CONTRAST REASON FOR EXAM: Female, 65 years old. STAGING. History of neuroendocrine tumor of the stomach. RADIATION DOSAGE (If Supplied By Facility): CTDIvol = ( 14.77 ) mGy, DLP = ( 1090.52 ) mGycm TECHNIQUE: Transaxial imaging was performed following intravenous administration of IV 100mL Isovue-300. Individualized dose optimization techniques were used for this CT. COMPARISON: No relevant priors. FINDINGS: CHEST Increased linear markings in both lung apices suggestive of bilateral apical scarring. No focal consolidation or mass lesion is present. There is no demonstrated pleural abnormality. There are calcifications of the coronary arteries. There are multiple small lymph nodes within the mediastinum, which are normal in size and morphology most compatible with reactive lymph hyperplasia. Normal hilar regions. Normal unenhanced pulmonary arteries. Normal aorta arch and descending thoracic aorta. There are multi-level degenerative changes of the thoracic spine. ABDOMEN The visualized lung bases are unremarkable. The visualized portions of the heart are within normal limits. Normal liver. The gallbladder is contracted. Normal spleen. Normal pancreas. Normal bilateral adrenal glands. There is a 6.4 mm cyst in the mid lateral aspect of the right kidney. Normal left kidney. There is a small hiatal hernia. Residual food particles are seen within the stomach. There is evidence of mural thickening of the distal portion of the body of the stomach. Normal small intestine. Normal colon. The appendix is visualized and appears normal. There is diffuse atherosclerotic calcification of the abdominal aorta and its major visceral branches, without a demonstrated aneurysm. Normal inferior vena cava. Normal retroperitoneum. There is a small umbilical hernia containing fat. Normal osseous structures. PELVIS Diffuse bladder wall thickening. There is no pelvic fluid. There is no pelvic lymphadenopathy or mass lesion. There is diffuse atherosclerotic calcification of the pelvic arteries. CT/CT Chest, Abd, Pel w/Contrast IMPRESSION: Diffuse circumferential wall thickening of the distal portion of the body of the stomach. Findings suggestive of scarring at both lung apices. Electronically Signed: Ej Mckeon MD at 9:28 EDT ,
== END 2021-09-07 23:59 | disposition home or self-care (01) ==
LOC: CT 15:44
PROVIDERS: Referring Provider Internal Medicine Medical Oncology; Visit Provider Internal Medicine Medical Oncology
DX: D3A.8 Other benign neuroendocrine tumors (principal)
CPT/HCPCS: 71260; 74177; Q9967

== ENCOUNTER 2021-11-18 06:50 | Outpatient (CLI) | payer MEDICARE, OTHER, SELFPAY ==
--- NOTE | 2021-11-18 16:15 | STRESSREP ---
Stress Test Report Pharmacologic myocardial perfusion stress test. 66-year-old lady with a history of atrial fibrillation. Resting blood pressure is 118/68 mmHg. 0.4 mg of regadenoson was infused per usual protocol followed by operative and saline flush injection continuous EKG monitoring was performed. The maximum heart rate attained was 97 bpm which was 63% of maximum predicted heart rate the maximum workload was 1 metabolic equivalent. At rest there were no ST or T wave changes noted to suggest abnormal flow reserve and at peak infusion nonspecific ST changes were noted with did not meet the criteria for ischemia. No clinical angina was noted. The final blood pressure was 130/80 mmHg. Myocardial perfusion protocol. 11.5 mCi of technetium 99m sestamibi was injected at rest. 0.4 mg of regadenoson was infused per usual protocol. At peak infusion 34.3 mCi of technetium 99m sestamibi was injected stress images were obtained stress and rest images were reconstructed and compared in the short axis vertical long and horizontal long axis. Gated images were also obtained to Perfusion SPECT analysis: Review of the stress images demonstrate normal uptake of tracer noted in all areas of the myocardium. The resting images similar demonstrate normal uptake of tracer noted in all areas of the myocardium. No areas of reversibility are noted suggest ischemia no previous infarct is noted. Gated SPECT analysis: The gated ejection fraction is 67%. Conclusion: Normal pharmacologic myocardial perfusion stress test. Preserved ejection fraction.
== END 2021-11-18 23:59 | disposition home or self-care (01) ==
LOC: CVS 06:51
PROVIDERS: Referring Provider Internal Medicine Cardiovascular Disease; Visit Provider Internal Medicine Cardiovascular Disease
DX: I48.0 Paroxysmal atrial fibrillation (principal); R94.31 Abnormal electrocardiogram [ECG] [EKG]; Z79.01 Long term (current) use of anticoagulants
CPT/HCPCS: 36415; 78452; 85610; 93017; A9500; A4216; J2785

== ENCOUNTER 2021-11-18 08:44 | Outpatient (RCR) | payer MEDICARE, OTHER, SELFPAY ==
[2021-11-07 13:47] LABS: Prothrombin Time (Protime)PT. 42.6 SECONDS (11.7-14.9)
[2021-11-07 14:08] LABS: International Normalized Ratio 4.5
[2021-11-18 09:39] LABS: International Normalized Ratio 2.9; Prothrombin Time (Protime)PT. 30.4 SECONDS (11.7-14.9)
== END 2021-11-18 23:59 | disposition home or self-care (01) ==
LOC: LAB 08:44
PROVIDERS: Referring Provider Internal Medicine Cardiovascular Disease; Visit Provider Internal Medicine Cardiovascular Disease
DX: I48.0 Paroxysmal atrial fibrillation (principal); Z79.01 Long term (current) use of anticoagulants
CPT/HCPCS: 36415; 85610

== ENCOUNTER 2021-11-25 13:54 | Outpatient (RCR) | payer MEDICARE, OTHER, SELFPAY ==
[2021-11-25 15:26] LABS: International Normalized Ratio 1.9; Prothrombin Time (Protime)PT. 21.1 SECONDS (11.7-14.9)
== END 2021-11-25 23:59 | disposition home or self-care (01) ==
LOC: LAB 13:54
PROVIDERS: Referring Provider Internal Medicine Cardiovascular Disease; Visit Provider Internal Medicine Cardiovascular Disease
DX: I48.0 Paroxysmal atrial fibrillation (principal); Z79.01 Long term (current) use of anticoagulants
CPT/HCPCS: 36415; 85610

== ENCOUNTER 2021-12-26 07:02 | Day surgery (SDC) | payer MEDICARE, OTHER, SELFPAY ==
[2021-12-26 07:25] LABS: INR Fingerstick 1.4; Prothrombin Time Fingerstick 17.3 SEC (11.7-14.9)
[2021-12-26 07:29] VITALS: BP 116/70; PULSE 67; RESP 18; TEMP 36.6; O2SAT 100; BMI 24.7
[2021-12-26] MEDS: Lactated Ringers 1,000 ML 15 ML IV (07:35)
[2021-12-26 08:00] LABS: Bedside Glucose 124 mg/dL (74-106)
--- NOTE | 2021-12-26 08:09 | HP.PCM_ITS ---
History and Physical Date of Admission: 12/26/21 COLLIN BATES, is a 65 F who presents to the office today for f/u hospitalization last month for GI bleed. This is her first visit to our office. She presented to ED for hgb 4.7. 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 Gastrin level 1124. She is being seen by Dr Fisher in oncology. He ordered PET but that hasn't been scheduled, pt asks about it so we'll help her schedule that. Hgb now 10.1. 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 Her only concern today is increased gas (she was worried because she thought gas not gastrin was the cause of her neuroendocrine tumor). Her bowel pattern is similar to how it was prior to her stroke 5 months ago; mostly normal BMs but diarrhea approx 2 days per week, not overly bothersome. After her stroke she developed constipation. Was taking a stool softerner BID after hospitalization, has decreased that to QD, and can stop when not needed.? No pain, no melena or hematochezia. Intermittent discomfort in LLQ, describes as a fullness, like need to have BM. No abd pain. Denies nausea, vomiting, heartburn, upper GI pain. Still tired. No SOB. Had colonoscopy age 58, polyp removed, then repeat colonoscopy 60, repeat recommended 5 yrs. 08/20/21 EGD: Impression: ? - LA Grade A reflux esophagitis. ? - Dieulafoy lesion of stomach. Coagulation w/ heater probe. ? - Non-bleeding gastric ulcer with no stigmata ? of bleeding. Biopsied. ? - Normal second portion of the duodenum. MICROSCOPIC DIAGNOSIS Gastric body, biopsy:Neuroendocrine tumor, low grade. CT/CT Chest, Abd, Pel w/Contrast IMPRESSION: Diffuse circumferential wall thickening of the distal portion of the body of the stomach. Findings suggestive of scarring at both lung apices. ROS Const Constitutional: Positive for fatigue ENT ENT: No difficulty swallowing Gastro GI: Positive for bloating and excessive flatus; No abdominal pain, belching, change in bowel habits, change in stool character, coffee ground emesis, constipation, cramping, diarrhea, heartburn, difficulty swallowing, feeling full early, incontinent of stools, Vomiting blood/hematemesis, Blood in stool, loose stools, Black,tarry stools, nausea/dyspepsia, pain with swallowing, vomiting or other Musc Musculoskeletal: No joint pain Skin Skin: No yellowing of the eye or itchy eyes Psych Psychiatric: No anxiety and No depression Endo Endocrine: Positive for fatigue Aller/Imm Allergy/Immunologic: No itchy eyes Robbin/Lymp Hematologic/Lymphatic: No easy bleeding or easy bruising Exam Const General: cooperative, comfortable, well developed and well groomed Nutritional Appearance: average body habitus Eyes Conjunctivae: conjunctivae normal Sclera: sclerae normal Resp Effort & Inspection: normal respiratory effort GI Inspection: normal to inspection Palpation: soft, no hepatosplenomegaly and nontender Skin General: no rashes or lesions noted Extrem General: no pedal edema Psych Mental Status: mental status grossly normal Mood: congruent mood Quality Reporting Tobacco Screening ([facility] 138) Smoking Status: Former smoker Assessment and Plan Assessment and Plan (1) Neuroendocrine neoplasm of stomach: ?Status:?Acute (2) GI bleed: ?Status:?Acute ?Plan - 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 She is being followed by oncology. We reviewed her EUS biopsy results which are benign. Case discussed w/ Friend. She is done with sucralfate, she should remain on PPI. We will plan repeat EGD in approx 2 months to ensure ulcer has healed and no further bleeding, as well as colonoscopy at that time for hx of polyp and to r/o any other bleeding. f/u 2 wks after endoscopy. We discussed her gas and bowel pattern, can use simethicone prn. Plan Details Other Medications: ?Discontinued: ? sucralfate ?? Discontinued Reason:? Pt no longer taking 1 g? PO TIDAC 30 days 90 tabs 0RF ? ? I have re-examined the patient. There are no clinical changes since date of exam.
--- NOTE | 2021-12-26 08:15 | IMM_PTH ---
PATIENT: COLLIN BATES LOC: EN U#:[id number] AGE/SX: 66/F ROOM: RE12/26/[address]: Dr. Montrell Durant DO : 1955 BED: DIS: 12/26/2021 SPEC #: [id number] RECD: 12/26/21 14:35 STATUS: ZHEN REQ #: [id number] CANDIDA: 12/26/21 08:[address]: Montrell Durant DEPT: IMMUNOHISTOCHEMISTRY RECD BY: Valeri Ayers ENTERED: 12/26/21 14:35 SP TYPE: IMMUNO OTHR DR: MADY Merrill Tissues: A - Stomach, NOS Procedures: H Pylori (initial) PHYSICIAN & INSTITUTION [place] [id number] SPECIMEN INFORMATION: Tissue Source: A ? Gastric body biopsy Clinical Info: Neuroendocrine neoplasm of stomach, GI bleed Specimen Number: [id number] CPT code: 91411 METHODOLOGY: Deparaffinized sections of prefer/formalin-fixed tissue or PAP/DQ stained slides are incubated with monoclonal/polyclonal antibodies/oligonucleotide probes. Localization is made via biotin free immunoperoxidase method. Appropriate controls are performed and reacted as expected. Results on target cell population are indicated in the following table: RESULTS: ANTIBODY / CLONE RESULT Block A H Pylori (polyclonal) negative These tests were developed and their performance characteristics determined by [facility]. They may not have been cleared or approved by the U.S. Food and Drug Administration. The FDA has determined that such clearance or approval is not necessary. The above immunohistochemical/dualISH markers are ordered and reviewed by the Pathologist. INTERPRETATION: A. Gastric body, biopsy: Negative for Helicobacter pylori organisms. SJ:wan 12/27/2021
--- NOTE | 2021-12-26 08:15 | EGD_PTH ---
PATIENT: COLLIN BATES LOC: EN U#:[id number] AGE/SX: 66/F ROOM: RE12/26/[address]: Dr. Montrell Durant DO : 1955 BED: DIS: 12/26/2021 SPEC #: [id number] RECD: 12/26/21 13:28 STATUS: ZHEN NEISHA #: [id number] CANDIDA: 12/26/21 08:[address]: Montrell Durant DEPT: SURGICAL PATHOLOGY RECD BY: Imelda Wu ENTERED: 12/26/21 14:00 SP TYPE: EGD BIOPSY OT DR: MADY Merrill Tissues: A - Gastric mucous membrane B - Duodenum, NOS C - Ileum, NOS D - COLON BIOPSY E - Sigmoid colon biopsy Procedures: Surgery Specimen Level IV HEADER OPERATION: Colonoscopy with biopsies, EGD with biopsies (MAC) PRE-OP DIAGNOSIS: Neuroendocrine neoplasm of stomach, GI bleed TISSUE SUBMITTED: A ? Gastric body biopsy, B ? Duodenum biopsy, C ? Terminal ileum biopsy, D ? Random colon biopsy, E ? Sigmoid polyp MICROSCOPIC DIAGNOSIS A. Gastric body, biopsy: Mild gastritis. See microscopic description and comment. B. Duodenum, biopsy: Fragments of duodenal mucosa, no pathologic diagnosis. C. Terminal ileum, biopsy: Fragments of small intestinal mucosa, no pathologic diagnosis. D. Colon, random biopsy: Fragments of colonic mucosa, no pathologic diagnosis. E. Sigmoid polyp, biopsy: Fragments of tubular adenoma. SJ:wan 12/27/2021 COMMENT A. The results of immunohistochemistry for Helicobacter pylori will be reported separately ([id number]). Cells suggestive of neuroendocrine tumor are not identified in the specimen. Please make reference to previous specimen ([id number]) gastric body, biopsy with diagnosis of ?neuroendocrine tumor, low grade.? Correlation with clinical, endoscopic findings and appropriate follow-up are necessary. Case has been reviewed in consultation with Dr. Osborne who concurs with the above diagnosis. IDC:AM MICROSCOPIC DESCRIPTION Slides are reviewed. A. The specimen shows fragments of gastric mucosa with chronic inflammatory cell infiltrates in the lamina propria consisting of lymphocytes and plasma cells, consistent with mild chronic gastritis. GROSS DESCRIPTION A - Received in fixative is one container labeled with the patient's name and designated gastric body biopsy. The specimen consists of multiple irregular fragments of light lopez soft tissue that in aggregate measure 1 x 0.3 x 0.1 cm. The specimen is totally submitted in one cassette. B - Received in fixative is one container labeled with the patient's name and designated duodenum biopsy. The specimen consists of multiple irregular fragments of light lopez soft tissue that in aggregate measure 0.8 x 0.3 x 0.1 cm. The specimen is totally submitted in one cassette. C - Received in fixative is one container labeled with the patient's name and designated terminal ileum biopsy. The specimen consists of multiple irregular fragments of light lopez soft tissue that in aggregate measure 0.8 x 0.3 x 0.1 cm. The specimen is totally submitted in one cassette. D - Received in fixative is one container labeled with the patient's name and designated random colon biopsy. The specimen consists of multiple irregular fragments of light lopez soft tissue that in aggregate measure 1.3 x 0.6 x 0.1 cm. The specimen is totally submitted in one cassette. E - Received in fixative is one container labeled with the patient's name and designated sigmoid polyp. The specimen consists of multiple irregular fragments of light lopez soft tissue that in aggregate measure 0.6 x 0.6 x 0.1 cm. The specimen is totally submitted in one cassette. / SJ:rg 12/26/2021 TC:1 CPT: 55414 x5
[2021-12-26 09:15] VITALS: BP 116/70; BP 87/58; PULSE 75; RESP 16; TEMP 36.4; O2SAT 98
--- NOTE | 2021-12-26 09:15 | OP.EGD_ITS ---
Patient Name: Xiomara Zapien Procedure Date: 12/26/2021 8:38 AM Date of : 1955 Age: 66 Procedure: Upper GI endoscopy Indications: Epigastric abdominal pain Providers: Montrell Durant DO Referring MD: Urbano Merrill Medicines: Monitored Anesthesia Care Patient Profile: This is a 66 year old female. Refer to note in patient chart for documentation of history and physical. Patient has symptoms of chronic abdominal cramping, chronic abdominal distention, chronic epigastric abdominal pain and chronic dyspepsia. Complications: No immediate complications. Procedure: Pre-Anesthesia Assessment: - Prior to the procedure, a History and Physical was performed, and patient medications and allergies were reviewed. The patient is competent. The risks and benefits of the procedure and the sedation options and risks were discussed with the patient. All questions were answered and informed consent was obtained. Patient identification and proposed procedure were verified by the physician in the pre-procedure area. Mental Status Examination: alert and oriented. Airway Examination: normal oropharyngeal airway and neck mobility. Respiratory Examination: clear to auscultation. CV Examination: normal. Prophylactic Antibiotics: The patient does not require prophylactic antibiotics. Prior Anticoagulants: The patient has taken no previous anticoagulant or antiplatelet agents. After reviewing the risks and benefits, the patient was deemed in satisfactory condition to undergo the procedure. The anesthesia plan was to use moderate sedation / analgesia (conscious sedation). Immediately prior to administration of medications, the patient was re-assessed for adequacy to receive sedatives. The heart rate, respiratory rate, oxygen saturations, blood pressure, adequacy of pulmonary ventilation, and response to care were monitored throughout the procedure. The physical status of the patient was re-assessed after the procedure. After obtaining informed consent, the endoscope was passed under direct vision. Throughout the procedure, the patient's blood pressure, pulse, and oxygen saturations were monitored continuously. The colonoscope was introduced through the mouth, and advanced to the second part of duodenum. The upper GI endoscopy was accomplished without difficulty. The patient tolerated the procedure well. Scope In: 8:46:30 AM Scope Out: 8:51:36 AM Total Procedure Duration Time 0 hours 5 minutes 6 seconds Findings: The examined esophagus was normal. Localized mild inflammation characterized by erosions and erythema was found in the gastric body. Biopsies were taken with a cold forceps for histology. Verification of patient identification for the specimen was done. Estimated blood loss was minimal. Nodular mucosa was found in the duodenal bulb. Biopsies were taken with a cold forceps for histology. Verification of patient identification for the specimen was done. Estimated blood loss was minimal. Impression: - Normal esophagus. - Gastritis. Biopsied. - Nodular mucosa in the duodenal bulb. Biopsied. Recommendation: - Discharge patient to home. - Resume previous diet. - Continue present medications. - Await pathology results. Procedure Code(s): --- Professional --- 65633, Esophagogastroduodenoscopy, flexible, transoral; with biopsy, single or multiple CPT copyright 2017 [employer]. All rights reserved. The codes documented in this report are preliminary and upon piping design specialist review may be revised to meet current compliance requirements. Montrell Durant DO 12/26/2021 9:14:29 AM This report has been signed electronically. Number of Addenda: 1 Note Initiated On: 12/26/2021 8:38 AM Addendum Number: 1 Addendum Date: 03/08/2022 6:09:47 AM MAC was used as sedation for this procedure. Montrell Durant DO 03/08/2022 6:09:55 AM This report has been signed electronically.
--- NOTE | 2021-12-26 09:15 | OP.CCLET_ITS ---
03/08/2022 Urbano Merrill Re : Upper GI endoscopy procedure for Xiomara Zapien Dear Keven This procedure was performed on Sunday, December 26, 2021. My impressions and recommendations are as follows: Impressions : - Normal esophagus. - Gastritis. Biopsied. - Nodular mucosa in the duodenal bulb. Biopsied. Recommendations : - Discharge patient to home. - Resume previous diet. - Continue present medications. - Await pathology results. My findings are described in the full procedure note, which is enclosed. If I can be of further assistance, please feel free to contact me at . Sincerely, Montrell Durant, 12/26/2021 9:14:29 AM This report has been signed electronically.
[2021-12-26 09:20] VITALS: BP 116/70; BP 93/57; PULSE 73; RESP 16; O2SAT 96
--- NOTE | 2021-12-26 09:21 | OP.CCLET_ITS ---
03/08/2022 Urbano Merrill Re : Colonoscopy procedure for Xiomara Zapien Dear Keven This procedure was performed on Sunday, December 26, 2021. My impressions and recommendations are as follows: Impressions : - Perianal rash found on perianal exam. - One 5 mm polyp in the sigmoid colon, removed with a cold snare. Resected and retrieved. - Congested mucosa in the sigmoid colon, at the splenic flexure and in the transverse colon. Biopsied. - Diverticulosis in the recto-sigmoid colon and in the sigmoid colon. - Poor rectal tone Recommendations : - Discharge patient to home. - Resume previous diet. - Continue present medications. - Await pathology results. - Repeat colonoscopy in 5 years for surveillance. - Return to GI office. -Apply nystatin cream to anal rectal area 3 times a day. My findings are described in the full procedure note, which is enclosed. If I can be of further assistance, please feel free to contact me at . Sincerely, Montrell Durant, 12/26/2021 9:20:44 AM This report has been signed electronically.
--- NOTE | 2021-12-26 09:21 | OP.COLON_ITS ---
Patient Name: Xiomara Zapien Procedure Date: 12/26/2021 8:51 AM Date of : 1955 Age: 66 Procedure: Colonoscopy Indications: Generalized abdominal pain, Diarrhea Providers: Montrell Durant DO Referring MD: Urbano Merrill Medicines: Propofol per Anesthesia, Monitored Anesthesia Care Patient Profile: This is a 66 year old female. Refer to note in patient chart for documentation of history and physical. Patient has symptoms of chronic abdominal cramping, chronic abdominal distention, chronic epigastric abdominal pain and chronic dyspepsia. Last Colonoscopy: date unknown. Unable to locate last colonoscopy report. Complications: No immediate complications. Procedure: Pre-Anesthesia Assessment: - Prior to the procedure, a History and Physical was performed, and patient medications and allergies were reviewed. The patient is competent. The risks and benefits of the procedure and the sedation options and risks were discussed with the patient. All questions were answered and informed consent was obtained. Patient identification and proposed procedure were verified by the physician in the pre-procedure area. Mental Status Examination: alert and oriented. Airway Examination: normal oropharyngeal airway and neck mobility. Respiratory Examination: clear to auscultation. CV Examination: normal. Prophylactic Antibiotics: The patient does not require prophylactic antibiotics. Prior Anticoagulants: The patient has taken no previous anticoagulant or antiplatelet agents. After reviewing the risks and benefits, the patient was deemed in satisfactory condition to undergo the procedure. The anesthesia plan was to use moderate sedation / analgesia (conscious sedation). Immediately prior to administration of medications, the patient was re-assessed for adequacy to receive sedatives. The heart rate, respiratory rate, oxygen saturations, blood pressure, adequacy of pulmonary ventilation, and response to care were monitored throughout the procedure. The physical status of the patient was re-assessed after the procedure. After I obtained informed consent, the scope was passed under direct vision. Throughout the procedure, the patient's blood pressure, pulse, and oxygen saturations were monitored continuously. The colonoscope was introduced through the anus and advanced to the terminal ileum. The colonoscopy was performed without difficulty. The patient tolerated the procedure well. The quality of the bowel preparation was good. Scope In: 8:53:49 AM Scope Withdrawal Time 0 hours 11 minutes 6 seconds Scope Out: 9:08:18 AM Total Procedure Duration Time 0 hours 14 minutes 29 seconds Findings: The perianal exam findings include a perianal rash. A 5 mm polyp was found in the sigmoid colon. The polyp was sessile. The polyp was removed with a cold snare. Resection and retrieval were complete. Verification of patient identification for the specimen was done. Estimated blood loss was minimal. An area of mildly congested mucosa was found in the sigmoid colon, at the splenic flexure and in the transverse colon. Biopsies were taken with a cold forceps for histology. Verification of patient identification for the specimen was done. Estimated blood loss was minimal. A few small-mouthed diverticula were found in the recto-sigmoid colon and sigmoid colon and the terminal ileum was mildly congested. Biopsies were taken. Impression: - Perianal rash found on perianal exam. - One 5 mm polyp in the sigmoid colon, removed with a cold snare. Resected and retrieved. - Congested mucosa in the sigmoid colon, at the splenic flexure and in the transverse colon. Biopsied. - Diverticulosis in the recto-sigmoid colon and in the sigmoid colon. - Poor rectal tone Recommendation: - Discharge patient to home. - Resume previous diet. - Continue present medications. - Await pathology results. - Repeat colonoscopy in 5 years for surveillance. - Return to GI office. -Apply nystatin cream to anal rectal area 3 times a day. Procedure Code(s): --- Professional --- 32909, Colonoscopy, flexible; with removal of tumor(s), polyp(s), or other lesion(s) by snare technique 04994, 59, Colonoscopy, flexible; with biopsy, single or multiple CPT copyright 2017 [employer]. All rights reserved. The codes documented in this report are preliminary and upon food service steward review may be revised to meet current compliance requirements. Montrell Durant DO 12/26/2021 9:20:44 AM This report has been signed electronically. Number of Addenda: 1 Note Initiated On: 12/26/2021 8:51 AM Addendum Number: 1 Addendum Date: 03/08/2022 6:10:09 AM MAC was used as sedation for this procedure. Montrell Durant DO 03/08/2022 6:10:15 AM This report has been signed electronically.
[2021-12-26 09:25] VITALS: BP 116/70; BP 98/62; PULSE 72; RESP 16; O2SAT 99
[2021-12-26 09:30] VITALS: BP 105/67; BP 116/70; PULSE 67; RESP 16; TEMP 36.4; O2SAT 99
[2021-12-26 09:56] VITALS: BP 116/70
== END 2021-12-26 10:13 | disposition home or self-care (01) ==
LOC: EN 07:02 → AC 07:03
PROVIDERS: Visit Provider Internal Medicine Gastroenterology
PROC: 0DJD8ZZ Inspection of Lower Intestinal Tract, Via Natural or Artificial Opening Endoscopic (ICD-10-PCS; CPT 45378; principal; 2021-12-26 08:10)
DX: D3A.8 Other benign neuroendocrine tumors (principal); K57.31 Diverticulosis of large intestine without perforation or abscess with bleeding; D12.5 Benign neoplasm of sigmoid colon; K29.71 Gastritis, unspecified, with bleeding; K63.89 Other specified diseases of intestine; Z86.73 Personal history of transient ischemic attack (TIA), and cerebral infarction without residual deficits; Z87.891 Personal history of nicotine dependence
CPT/HCPCS: 45385; 45380; 43239; 36416; 82962; 85610; 88305; 88342; J7120; J2405

== ENCOUNTER 2021-12-30 10:36 | Outpatient (RCR) | payer MEDICARE, OTHER, SELFPAY ==
[2021-12-02 11:19] LABS: International Normalized Ratio 2.1; Prothrombin Time (Protime)PT. 23.1 SECONDS (11.7-14.9)
[2021-12-16 09:58] LABS: International Normalized Ratio 1.9; Prothrombin Time (Protime)PT. 21.3 SECONDS (11.7-14.9)
[2021-12-30 12:20] LABS: International Normalized Ratio 1.5; Prothrombin Time (Protime)PT. 17.7 SECONDS (11.7-14.9)
== END 2022-01-01 02:52 | disposition home or self-care (01) ==
LOC: LAB 10:36
PROVIDERS: Referring Provider Internal Medicine Cardiovascular Disease; Visit Provider Internal Medicine Cardiovascular Disease
DX: I48.0 Paroxysmal atrial fibrillation (principal); Z79.01 Long term (current) use of anticoagulants
CPT/HCPCS: 36415; 85610

== ENCOUNTER 2022-01-20 12:21 | Outpatient (RCR) | payer MEDICARE, OTHER, SELFPAY ==
[2022-01-06 09:41] LABS: International Normalized Ratio 2.1; Prothrombin Time (Protime)PT. 23.1 SECONDS (11.7-14.9)
[2022-01-10 14:09] LABS: Albumin 3.9 g/dL (2.9-4.4); Alpha-1-Globulins 0.2 g/dL (0.0-0.4); Alpha-2-Globulins 0.7 g/dL (0.4-1.0); Gamma Globulin 0.6 g/dL (0.4-1.8); Immunoglobulin A 103 mg/dL (87-352); Immunoglobulin G 579 mg/dL (586-1602); Immunoglobulin M 55 mg/dL (26-217); PROEL- TOTAL PROTEIN 6.5 g/dL (6.0-8.5)
[2022-01-20 13:49] LABS: International Normalized Ratio 2.3
== END 2022-01-20 18:00 | disposition home or self-care (01) ==
LOC: LAB 12:21
PROVIDERS: Nurse Practitioner Family; Referring Provider Internal Medicine Cardiovascular Disease; Visit Provider Internal Medicine Cardiovascular Disease
DX: I48.0 Paroxysmal atrial fibrillation (principal); Z79.01 Long term (current) use of anticoagulants; G62.9 Polyneuropathy, unspecified
CPT/HCPCS: 36415; 82784; 84165; 85610; 86334; 86335

== ENCOUNTER 2022-03-03 12:36 | Outpatient (RCR) | payer MEDICARE, OTHER, SELFPAY ==
[2022-03-03 13:51] LABS: International Normalized Ratio 2.4; Prothrombin Time (Protime)PT. 25.8 SECONDS (11.7-14.9)
== END 2022-03-03 18:00 | disposition home or self-care (01) ==
LOC: LAB 12:36
PROVIDERS: Referring Provider Internal Medicine Cardiovascular Disease; Visit Provider Internal Medicine Cardiovascular Disease
DX: I48.0 Paroxysmal atrial fibrillation (principal); Z79.01 Long term (current) use of anticoagulants
CPT/HCPCS: 36415; 85610

== ENCOUNTER 2022-03-31 13:30 | Outpatient (RCR) | payer MEDICARE, OTHER, SELFPAY | END 2022-03-31 18:00 | disposition home or self-care (01) | LOC: LAB 13:30 | PROVIDERS: Referring Provider Internal Medicine Cardiovascular Disease; Visit Provider Internal Medicine Cardiovascular Disease | DX: I48.0 Paroxysmal atrial fibrillation (principal); G62.9 Polyneuropathy, unspecified; Z79.01 Long term (current) use of anticoagulants | CPT/HCPCS: 36415; 85610 ==

== ENCOUNTER → 2022-04-04 | Outpatient (CLI) | payer MEDICARE, OTHER, SELFPAY ==
[2022-04-06 16:11] LABS: Gastrin, Serum 1220 pg/mL (0-115)
== END | disposition home or self-care (01) ==
LOC: LAB 09:04
PROVIDERS: Referring Provider Internal Medicine Gastroenterology; Visit Provider Internal Medicine Gastroenterology
DX: R19.7 Diarrhea, unspecified (principal)
CPT/HCPCS: 36415; 82941

== ENCOUNTER 2022-06-01 10:26 | Outpatient (RCR) | payer MEDICARE, OTHER, SELFPAY ==
[2022-05-05 11:27] LABS: International Normalized Ratio 2.1; Prothrombin Time (Protime)PT. 23.3 SECONDS (11.7-14.9)
[2022-06-01 10:51] LABS: International Normalized Ratio 2.4; Prothrombin Time (Protime)PT. 26.2 SECONDS (11.7-14.9)
== END 2022-06-01 18:00 | disposition home or self-care (01) ==
LOC: LAB 10:26
PROVIDERS: Referring Provider Internal Medicine Cardiovascular Disease; Visit Provider Internal Medicine Cardiovascular Disease
DX: I48.0 Paroxysmal atrial fibrillation (principal); Z79.01 Long term (current) use of anticoagulants
CPT/HCPCS: 36415; 85610

== ENCOUNTER 2022-06-28 13:10 | Outpatient (RCR) | payer MEDICARE, OTHER, SELFPAY ==
[2022-06-28 13:57] LABS: International Normalized Ratio 2.2; Prothrombin Time (Protime)PT. 23.8 SECONDS (11.7-14.9)
== END 2022-06-28 18:00 | disposition home or self-care (01) ==
LOC: LAB 13:10
PROVIDERS: Referring Provider Internal Medicine Cardiovascular Disease; Visit Provider Internal Medicine Cardiovascular Disease
DX: I48.0 Paroxysmal atrial fibrillation (principal); Z79.01 Long term (current) use of anticoagulants
CPT/HCPCS: 36415; 85610

== ENCOUNTER 2022-08-01 13:07 | Outpatient (RCR) | payer MEDICARE, OTHER, SELFPAY ==
[2022-08-01 13:51] LABS: Prothrombin Time (Protime)PT. 22.6 SECONDS (11.7-14.9)
== END 2022-08-01 18:00 | disposition home or self-care (01) ==
LOC: LAB 13:07
PROVIDERS: Referring Provider Internal Medicine Cardiovascular Disease; Visit Provider Internal Medicine Cardiovascular Disease
DX: I48.0 Paroxysmal atrial fibrillation (principal); G62.9 Polyneuropathy, unspecified; Z79.01 Long term (current) use of anticoagulants
CPT/HCPCS: 36415; 85610

== ENCOUNTER → 2022-08-24 | Outpatient (CLI) | payer MEDICARE, OTHER, SELFPAY ==
--- NOTE | 2022-08-24 10:42 | CDU_ITS ---
Reason For Study: Stroke Rt. Velocities/BP Lt. Velocities/BP Prox CCA 87.2/15.7 cm/sec. Prox CCA 59.7/16.8 cm/sec. Mid CCA 89.4/17.9 cm/sec. Mid CCA 52/14.6 cm/sec. Dist CCA 70.7/19 cm/sec. Dist CCA 47.6/15.7 cm/sec. Prox ICA 59.7/16.8 cm/sec. Prox ICA 214.3/68.9 cm/sec. Mid ICA 75.1/21.2 cm/sec. Mid ICA 127.8/24.1 cm/sec. Dist ICA 80.6/24.5 cm/sec. Dist ICA 77.8/22.5 cm/sec. Rt. ICA/CCA = 0.92. Lt. ICA/CCA = 4.12. Prox ECA 69.6/13.5 cm/sec. Prox ECA 165.3/22.6 cm/sec. Rt. Vert. 54.2/10.2 cm/sec. Lt. Vert. 53.2/13.9 cm/sec. Right Extracranial There is intimal thickening but no significant atherosclerotic plaque noted in the right common carotid artery. There is heterogeneous, smooth atherosclerotic plaque noted in the right internal carotid artery. There is intimal thickening but no significant atherosclerotic plaque noted in the right external carotid artery. Antegrade flow is noted in the right vertebral artery. Left Extracranial There is heterogeneous, irregular atherosclerotic plaque noted in the left common carotid artery. There is heterogeneous, irregular atherosclerotic plaque noted in the left internal carotid artery. There is heterogeneous, irregular atherosclerotic plaque noted in the left external carotid artery. Antegrade flow is noted in the left vertebral artery. Procedure Carotid Duplex 53888. This is a Carotid Duplex examination using B-mode, color flow and specral Doppler. Unable to match velocities in left ICA proximal as compared to 04/29/2021. Exam performed in department. VL/Carotid Duplex Ultrasound Interpretation Summary Mild (<50%) stenosis right extracranial internal carotid. Severe (>70%) stenosi s left extracranial internal carotid. Flow within the vertebral arteries is antegrade bilaterally. Ordering Physician: Ronak Mitchell Referring Physician: Brooke Baca Performed By: Chhaya Maldonado RVT
== END | disposition home or self-care (01) ==
LOC: CVS 10:41
PROVIDERS: Referring Provider Psychiatry & Neurology Neurology; Visit Provider Psychiatry & Neurology Neurology
DX: I65.22 Occlusion and stenosis of left carotid artery (principal); I48.0 Paroxysmal atrial fibrillation; G62.9 Polyneuropathy, unspecified; Z79.01 Long term (current) use of anticoagulants
CPT/HCPCS: 36415; 85610; 93880

== ENCOUNTER 2022-09-01 13:08 | Outpatient (RCR) | payer MEDICARE, OTHER, SELFPAY ==
[2022-08-16 13:12] LABS: International Normalized Ratio 1.8; Prothrombin Time (Protime)PT. 20.5 SECONDS (11.7-14.9)
[2022-08-24 13:57] LABS: International Normalized Ratio 1.8; Prothrombin Time (Protime)PT. 20.5 SECONDS (11.7-14.9)
[2022-09-01 13:43] LABS: International Normalized Ratio 2.2; Prothrombin Time (Protime)PT. 24.3 SECONDS (11.7-14.9)
== END 2022-09-01 23:18 | disposition home or self-care (01) ==
LOC: LAB 13:08
PROVIDERS: Referring Provider Internal Medicine Cardiovascular Disease; Visit Provider Internal Medicine Cardiovascular Disease
DX: I48.0 Paroxysmal atrial fibrillation (principal); Z79.01 Long term (current) use of anticoagulants; G62.9 Polyneuropathy, unspecified
CPT/HCPCS: 36415; 85610

== ENCOUNTER → 2022-09-21 | Outpatient (CLI) | payer MEDICARE, OTHER, SELFPAY ==
--- NOTE | 2022-09-21 16:52 | CT_ITS ---
INDICATION: CAROTID STENOSIS EXAMINATION: CTA NECK - CTA Neck WO/W Contrast Injection TECHNIQUE: Routine carotid CT angiogram protocol was performed without and with IV contrast. NASCET criteria using the distal ICAs for comparison were used for evaluation of stenoses. 3D reconstructions were reviewed. A radiation dose optimization technique was used for this scan. IV Contrast dosage and agent: 100 cc Isovue-370 RADIATION DOSAGE (If Supplied By Facility): CTDIvol = ( 13.77 ) mGy, DLP = ( 445.16 ) mGycm COMPARISON: 04/30/2021 FINDINGS: AORTIC ARCH AND BRANCHES: Great vessel origins patent. RIGHT CCA: No occlusion, significant stenosis or dissection. RIGHT ICA: No occlusion, significant stenosis or dissection. LEFT CCA: No occlusion, significant stenosis or dissection. LEFT ICA: Approximately 50% stenosis at its origin. No occlusion or dissection. RIGHT VERTEBRAL ARTERY: No occlusion, significant stenosis or dissection. LEFT VERTEBRAL ARTERY: No occlusion, significant stenosis or dissection. NECK SOFT TISSUES: Unremarkable. LUNG APICES: Clear. BONES: Degenerative changes. CT/CTA Neck W/WO Contrast IMPRESSION: 50% stenosis of the left ICA at its origin. Electronically Signed: Arie March MD at 21:42 EDT ,
== END | disposition home or self-care (01) ==
LOC: CT 16:50
PROVIDERS: Referring Provider Surgery Vascular Surgery; Visit Provider Surgery Vascular Surgery
DX: I65.23 Occlusion and stenosis of bilateral carotid arteries (principal)
CPT/HCPCS: 70498; Q9967

== ENCOUNTER 2022-10-02 08:33 | Outpatient (RCR) | payer MEDICARE, OTHER, SELFPAY ==
[2022-10-02 09:13] LABS: Absolute Lymphocyte Count 2.58 X10^3/uL (0.83-4.51); Absolute Neutrophil Count 3.3 X10^3/uL (2.0-7.7); Basophil# 0.06 X10^3/uL; Basophil% 0.9 % (0-1); Eosinophil# 0.13 X10^3/uL; Hematocrit 40.9 % (37-47); Lymphocyte # 2.58 X10^3/ul (0.83-4.51); Lymphocyte % 39.4 % (19-41); Mean Corp Hgb Conc 31.8 g/dL (32-36); Mean Corpuscular Hgb 28.6 pg (27.0-32.0); Mean Corpuscular Volume 90.1 fL (81-99); Mean Platelet Vol. 10.5 fl (6.2-12.0); Monocyte# 0.45 X10^3/uL; Monocyte% 6.9 % (0-10); NRBC Flagged by Analyzer 0 % (0-5); Neutrophil % 50.3 % (47-70); Platelet Count 305 K/mm3 (150-450); RBC Distribution Width CV 14.1 % (11.6-14.6); RBC Distribution Width SD 46.7 fl (35.1-43.9); Red Blood Count 4.54 M/mm3 (4.2-5.4); White Blood Count 6.6 K/mm3 (4.4-11.0)
[2022-10-02 09:26] LABS: International Normalized Ratio 2.7; Prothrombin Time (Protime)PT. 29.2 SECONDS (11.7-14.9)
[2022-10-02 10:01] LABS: ALB/GLOB Ratio 1.4 RATIO (0.9-2.4); AST(SGOT) 25 U/L (15-37); Alanine Aminotransfer ALT/SGPT 44 U/L (13-56); Albumin, Serum 4.3 g/dL (3.2-5.0); Alkaline Phosphatase 32 U/L (45-117); Anion Gap 6 (5-15); BUN 18 mg/dL (7-18); BUN/Creat Ratio 18.3 RATIO (10-20); Calcium,Total 10.2 mg/dL (8.5-10.1); Chloride 105 mmol/L (98-107); Creatinine, Serum 0.98 mg/dL (0.55-1.02); EST Glomerular Filtration Rate 60 mL/min (>60); Est Glom Filt Rate - Afr Amer 72 mL/min (>60); Ferritin 18 ng/mL (8-252); Glucose 145 mg/dL (74-106); Iron 49 ug/dL (50-170); Iron Binding Capacity,Total 547 ug/dL (250-450); LDH 132 U/L (84-246); Potassium 4.3 mmol/L (3.5-5.1); Protein, Total 7.3 g/dL (6.4-8.2); Sodium Level 138 mmol/L (136-145)
[2022-10-04 15:08] LABS: Gastrin, Serum 1320 pg/mL (0-115)
== END 2022-10-02 10:00 | disposition home or self-care (01) ==
LOC: LAB 08:33
PROVIDERS: Internal Medicine Medical Oncology; Referring Provider Internal Medicine Cardiovascular Disease; Visit Provider Internal Medicine Cardiovascular Disease
DX: I48.0 Paroxysmal atrial fibrillation (principal); Z79.01 Long term (current) use of anticoagulants; G62.9 Polyneuropathy, unspecified; E16.4 Increased secretion of gastrin; D50.8 Other iron deficiency anemias
CPT/HCPCS: 36415; 80053; 82728; 82941; 83540; 83550; 83615; 85025; 85610

== ENCOUNTER → 2022-10-26 | Outpatient (CLI) | payer MEDICARE, OTHER, SELFPAY ==
--- NOTE | 2022-10-26 10:30 | RAD_ITS ---
EXAM: XR LEFT SHOULDER COMPLETE, 2 OR MORE VIEWS CLINICAL INDICATION: Pain in left shoulder TECHNIQUE: Two or more views of the left shoulder. COMPARISON: No relevant prior studies available. FINDINGS: BONES/JOINTS: Unremarkable. No acute fracture. No subluxation. Normal alignment. Preservation of the joint space. No sclerotic or destructive changes observed. SOFT TISSUES: Unremarkable. No soft tissue swelling or gas. No radiopaque foreign body. RAD/Shoulder min 2 Views IMPRESSION: Negative left shoulder x-rays. Electronically Signed: John Guillen MD at 4:17 EDT ,
== END | disposition home or self-care (01) ==
LOC: RAD 10:24
DX: M25.512 Pain in left shoulder (principal)
CPT/HCPCS: 73030

== ENCOUNTER 2022-11-02 12:47 | Outpatient (RCR) | payer MEDICARE, OTHER, SELFPAY ==
[2022-11-02 14:10] LABS: Prothrombin Time (Protime)PT. 22.8 SECONDS (11.7-14.9)
== END 2022-11-02 18:00 | disposition home or self-care (01) ==
LOC: LAB 12:47
PROVIDERS: Referring Provider Internal Medicine Cardiovascular Disease; Visit Provider Internal Medicine Cardiovascular Disease
DX: I48.0 Paroxysmal atrial fibrillation (principal); Z79.01 Long term (current) use of anticoagulants
CPT/HCPCS: 36415; 85610

== ENCOUNTER 2022-12-08 13:35 | Outpatient (RCR) | payer MEDICARE, OTHER, SELFPAY ==
[2022-12-08 14:06] LABS: International Normalized Ratio 2.2
== END 2023-01-01 18:00 | disposition home or self-care (01) ==
LOC: LAB 13:35
PROVIDERS: Physician Assistant Medical; Referring Provider Internal Medicine Cardiovascular Disease; Visit Provider Internal Medicine Cardiovascular Disease
DX: I48.0 Paroxysmal atrial fibrillation (principal); Z79.01 Long term (current) use of anticoagulants
CPT/HCPCS: 36415; 85610

== ENCOUNTER 2023-01-18 08:08 | Outpatient (RCR) | payer MEDICARE, OTHER, SELFPAY ==
[2023-01-18 08:50] LABS: Absolute Lymphocyte Count 2.25 X10^3/uL (0.83-4.51); Absolute Neutrophil Count 3.5 X10^3/uL (2.0-7.7); Basophil# 0.04 X10^3/uL; Basophil% 0.6 % (0-1); Eosinophil# 0.09 X10^3/uL; Eosinophils% 1.4 % (0-5); Hematocrit 41.4 % (37-47); Lymphocyte # 2.25 X10^3/ul (0.83-4.51); Lymphocyte % 36.2 % (19-41); Mean Corp Hgb Conc 31.4 g/dL (32-36); Mean Corpuscular Hgb 28.4 pg (27.0-32.0); Mean Corpuscular Volume 90.6 fL (81-99); Mean Platelet Vol. 10.8 fl (6.2-12.0); Monocyte# 0.37 X10^3/uL; Monocyte% 5.9 % (0-10); NRBC Flagged by Analyzer 0 % (0-5); Neutrophil # 3.45 X10^3/uL (2.7-7.7); Neutrophil % 55.6 % (47-70); Platelet Count 267 K/mm3 (150-450); RBC Distribution Width CV 14.6 % (11.6-14.6); Red Blood Count 4.57 M/mm3 (4.2-5.4); Reticulocyte Count 1.48 % (0.5-1.5); White Blood Count 6.2 K/mm3 (4.4-11.0)
[2023-01-18 09:07] LABS: International Normalized Ratio 2.3; Prothrombin Time (Protime)PT. 25.7 SECONDS (11.7-14.9)
[2023-01-18 09:19] LABS: Vitamin B12 774 pg/mL (211-911)
[2023-01-18 11:08] LABS: ALB/GLOB Ratio 1.3 RATIO (0.9-2.4); AST(SGOT) 19 U/L (15-37); Alanine Aminotransfer ALT/SGPT 35 U/L (13-56); Albumin, Serum 3.9 g/dL (3.2-5.0); Alkaline Phosphatase 28 U/L (45-117); Anion Gap 6 (5-15); BUN 13 mg/dL (7-18); BUN/Creat Ratio 11.7 RATIO (10-20); Chloride 108 mmol/L (98-107); Creatinine, Serum 1.11 mg/dL (0.55-1.02); EST Glomerular Filtration Rate 52 mL/min (>60); Est Glom Filt Rate - Afr Amer 63 mL/min (>60); Ferritin 26 ng/mL (8-252); Glucose 151 mg/dL (74-106); Iron 57 ug/dL (50-170); Iron Binding Capacity,Total 494 ug/dL (250-450); LDH 132 U/L (84-246); PERCENT IRON SATURATION 11.5 % (15.0-55.0); Potassium 4.2 mmol/L (3.5-5.1); Protein, Total 6.9 g/dL (6.4-8.2); Sodium Level 141 mmol/L (136-145)
[2023-01-23 16:09] LABS: Gastrin, Serum 1289 pg/mL (0-115)
== END 2023-01-18 18:00 | disposition home or self-care (01) ==
LOC: LAB 08:08
PROVIDERS: Internal Medicine Medical Oncology; Referring Provider Internal Medicine Cardiovascular Disease; Visit Provider Internal Medicine Cardiovascular Disease
DX: I48.0 Paroxysmal atrial fibrillation (principal); Z79.01 Long term (current) use of anticoagulants
CPT/HCPCS: 36415; 80053; 82607; 82728; 82941; 83540; 83550; 83615; 85025; 85045; 85610

== ENCOUNTER 2023-02-22 11:54 | Outpatient (RCR) | payer MEDICARE, OTHER, SELFPAY ==
[2023-02-22 12:36] LABS: International Normalized Ratio 2.5; Prothrombin Time (Protime)PT. 26.9 SECONDS (11.7-14.9)
== END 2023-02-22 18:00 | disposition home or self-care (01) ==
LOC: LAB 11:54
PROVIDERS: Referring Provider Internal Medicine Cardiovascular Disease; Visit Provider Internal Medicine Cardiovascular Disease
DX: I48.0 Paroxysmal atrial fibrillation (principal); Z79.01 Long term (current) use of anticoagulants
CPT/HCPCS: 36415; 85610

== ENCOUNTER 2023-03-08 06:58 | Day surgery (SDC) | payer MEDICARE, OTHER, SELFPAY ==
[2023-03-08 07:14] LABS: INR Fingerstick 1.2; Prothrombin Time Fingerstick 13.4 SEC (11.7-14.9)
[2023-03-08 07:32] VITALS: BP 134/87; PULSE 63; RESP 16; TEMP 36.2; O2SAT 98; BMI 26.7
[2023-03-08] MEDS: Lactated Ringers 1,000 ML 15 ML IV (07:37)
[2023-03-08 07:57] LABS: Bedside Glucose 118 mg/dL (74-106)
--- NOTE | 2023-03-08 08:00 | EGD_PTH ---
PATIENT: COLLIN BATES LOC: EN U#:[id number] AGE/SX: 67/F ROOM: RE03/08/[address]: Dr. Montrell Durant DO : 1955 BED: DIS: 03/08/2023 SPEC #: [id number] RECD: 03/08/23 09:56 STATUS: ZHEN NEISHA #: [id number] CANDIDA: 03/08/23 08:[address]: Montrell Durant DEPT: SURGICAL PATHOLOGY RECD BY: Imelda Wu ENTERED: 03/08/23 10:51 SP TYPE: EGD BIOPSY OT DR: MADY Merrill Tissues: A - Gastric mucous membrane B - Esophagus, NOS C - Duodenum, NOS Procedures: Special Stain Group II Surgery Specimen Level IV Alcian Blue/PAS (control) HEADER OPERATION: EGD, biopsy PRE-OP DIAGNOSIS: Diarrhea, hypergastrinemia TISSUE SUBMITTED: A - Gastric antrum biopsy for histo and H. pylori, B - Distal esophagus biopsy, C - Duodenum biopsy MICROSCOPIC DIAGNOSIS A. Gastric antrum, biopsy: Chronic gastritis, moderate to severe. Focal intestinal metaplasia. No evidence of dysplasia. See comment. B. Distal esophagus, biopsy: Gastroesophageal junctional mucosa with mild chronic inflammation. 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 No evidence of dysplasia. See comment. C. Duodenum, biopsy: No pathologic change. AM:wan 03/09/2023 COMMENT A. The results of immunohistochemistry for Helicobacter pylori will be reported separately ([id number]). Immunohistochemistry ([id number]) for P53 and Ki-67 will be performed and results will be reported separately. Alcian blue/PAS stain with matched control supports the above diagnosis. B. Immunohistochemistry ([id number]) for P53 and Ki-67 will be performed and results will be reported separately. Alcian blue/PAS stain with matched control supports the above diagnosis. MICROSCOPIC DESCRIPTION Slides are reviewed. GROSS DESCRIPTION A - Received in fixative is one container labeled with the patient's name and designated gastric antrum biopsy. The specimen consists of two irregular fragments of light lopez soft tissue that in aggregate measure 1.0 x 0.5 x 0.1 cm. The specimen is totally submitted in one cassette. B - Received in fixative is one container labeled with the patient's name and designated distal esophagus biopsy. The specimen consists of two irregular fragments of light lopez soft tissue that in aggregate measure 0.8 x 0.5 x 0.1 cm. The specimen is totally submitted in one cassette. C - Received in fixative is one container labeled with the patient's name and designated duodenum biopsy. The specimen consists of multiple irregular fragments of light lopez soft tissue that in aggregate measure 1.0 x 0.4 x 0.1 cm. The specimen is totally submitted in one cassette. / SJ:rg 03/08/2023 TC:3 CPT: 36847 x3, 35521 x2
--- NOTE | 2023-03-08 08:00 | IMM_PTH ---
PATIENT: COLLIN BATES LOC: EN U#:[id number] AGE/SX: 67/F ROOM: RE03/08/[address]: Dr. Montrell Durant DO : 1955 BED: DIS: 03/08/2023 SPEC #: [id number] RECD: 03/08/23 13:40 STATUS: ZHEN REQ #: [id number] CANDIDA: 03/08/23 08:[address]: Montrell Durant DEPT: IMMUNOHISTOCHEMISTRY RECD BY: Valeri Ayers ENTERED: 03/08/23 13:41 SP TYPE: IMMUNO OTHR DR: MADY Merrill Tissues: A - Stomach, NOS B - Esophagus, NOS Procedures: H Pylori (initial) P53 (initial) KI-67 (add) P53 (add) MOC-31 (add) PHYSICIAN & INSTITUTION [place] [id number] SPECIMEN INFORMATION: Tissue Source: A - Gastric antrum, B - Distal esophagus Clinical Info: Diarrhea, hypergastrinemia, neuroendocrine tumor Specimen Number: [id number] A & B CPT code: 67530 x2, 90669 x5 METHODOLOGY: Deparaffinized sections of prefer/formalin-fixed tissue or PAP/DQ stained slides are incubated with monoclonal/polyclonal antibodies/oligonucleotide probes. Localization is made via biotin free immunoperoxidase method. Appropriate controls are performed and reacted as expected. Results on target cell population are indicated in the following table: RESULTS: ANTIBODY / CLONE RESULT Block A H Pylori (polyclonal) negative P53 (DO-7) positive, wild type pattern Ki-67 (30-9) positive MOC-31 (4561) positive Block B P53 (DO-7) negative, wild type pattern Ki-67 (30-9) positive MOC-31 (4561) positive These tests were developed and their performance characteristics determined by [facility]. They may not have been cleared or approved by the U.S. Food and Drug Administration. The FDA has determined that such clearance or approval is not necessary. The above immunohistochemical/dualISH markers are ordered and reviewed by the Pathologist. INTERPRETATION: A. Gastric antrum, biopsy: Negative for Helicobacter pylori organisms. No evidence of dysplasia. B. Distal esophagus, biopsy: No evidence of dysplasia. AM:wan 03/12/2023
--- NOTE | 2023-03-08 08:01 | PCM.HP.BLA ---
History and Physical Date of Admission: 03/08/23 F/u for high Gastrin level. Details: COLLIN BATES, is a 67 F who presents to the office today for follow up. *[facility] hospitalization 08.19.21-08.20.21 with fatigue, dyspnea, intermittent palpitations and dark stools in the setting of Eliquis and low-dose ASA. Hgb found to be 4.6 with 2 unites PRBC administered. GI consulted 08.20.21? EGD 08.20.21?LA Grade A reflux esophagitis; dieulafoy lesion of stomach; non-bleeding gastric ulcer without stigmata of bleeding. 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 [facility] oncology 08.30.21 for management of low grade NET. Recommend biochemical, imaging and EUS? Biochemical?CBC, CMP (calcium H10.8), LDH, gastrin, chromogranin A without pertinent abnormality.? Free kappa LC H19.8?CT chest/abd/pel 09.07.21?found diffuse circumferential wall thickening of distal portion of stomach body; scarring of bilateral lung apices.? GI outpatient workup, referred for EUS:? EGD OSH 09.14.21?LA Grade A esophagitis; gastritis; nodular mucosa of gastric body with scar and ulceration, resected, atrophic gastritis with focal intestinal metaplasia and endocrine cell hyperplasia.? OV 09.28.21 with concern of EGD findings. BM typically normal with 1-2 days of looser stools each week.?Continue PPI?and repeat EGD for ensure healing.? [facility] workup:?PET scan 10.10.21 at [place]?without signs of malignancy.? [facility] oncology 10.14.21 for chronic atrophic gastritis without gastric NET, manage ulcers with endoscopy; hypergastrinemia, monitor gastrin level; anemia, start ferrex one cap BID.? GI Outpatient:? EGD and colonoscopy 12.26.21. EGD normal esophagus; gastritis; nodular mucosa of duodenal bulb without pathologic diagnosis. H.Pylori negative.? Colonoscopy perianal rash; 5mm sigmoid tubular adenoma polyp; congested mucosa of sigmoid colon, splenic flexure and transverse colon without pathologic diagnosis; diverticulosis of RS and sigmoid colon; poor rectal tone.? Start nystatin cream to perianal area.? OV 01.09.22 doing well since discharge home though continues with minimal abd pain and intermittent loose stools.? OV 03.31.22 Dr. Fisher stopped omeprazole with instruction to use Maalox for dyspepsia? [facility] oncology 10.09.22 recommending continued cessation of PPI. No active NET at this time. Continue Ferrex.?Biochemical?CBC, CMP (calcium H10.2), ferritin, LDH, retic, Vit B12 without pertinent abnormality.?Iron L49, TIBC H547, iron sat L9? ? Gastrin? 08.30.21 1124? 10.13.21 1754? 04.04.22 1220? 07.07.22?878? 10.02.22 1320? ? Pt reports doing very well since last visit. Has had no diarrhea or abdominal pain. Has not had any problems being off Pantoprazole. Does not have any other GI concerns. ROS Const Constitutional: No fatigue ENT ENT: No difficulty swallowing Gastro GI: No abdominal pain, belching, bloating, change in bowel habits, change in stool character, coffee ground emesis, constipation, cramping, diarrhea, heartburn, difficulty swallowing, feeling full early, excessive flatus, incontinent of stools, Vomiting blood/hematemesis, Blood in stool, loose stools, Black,tarry stools, nausea/dyspepsia, pain with swallowing, vomiting or other Musc Musculoskeletal: No joint pain Skin Skin: No yellowing of the eye or itchy eyes Psych Psychiatric: No anxiety and No depression Endo Endocrine: No fatigue Aller/Imm Allergy/Immunologic: No itchy eyes Robbin/Lymp Hematologic/Lymphatic: No easy bleeding or easy bruising Quality Reporting Tobacco Screening ([facility] [address]) Smoking Status: Former smoker Assessment and Plan Assessment and Plan (1) Diarrhea: Status: Chronic Qualifiers: Diarrhea type: unspecified type Qualified Code(s): R19.7 - Diarrhea, unspecified Plan: Diarrhea possibly secondary to hypergastrinemia. She has been off of PPI therapy and she has had a decrease in her gastrin level. It is not as a drastic drop in level as I would have suspected but her imaging does not show any signs of endocrine neoplasm. She has no history of multiple endocrine neoplasia syndrome. I will continue her on pancreatic enzymes because she is not having any more diarrhea. 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 And we will recheck a gastrin level off of PPI therapy. (2) Hypergastrinemia: Status: Chronic Comment: Fasting Gastrin level was about 1300, may be due to Chronic Gastritis. Clinically stable. 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 Her gastrin level was 874and is up to 1300. I believe that most of her side effects of anemia, B12 deficiency, neuroendocrine tumor are all secondary to her autoimmune gastritis. (3) Neuroendocrine tumor: Status: Chronic Plan: The repeat biopsies on her recent endoscopy did not show any signs of neuroendocrine tumor. She also had imaging did not show any signs of metastatic neuroendocrine tumor in her abdomen. She has follow-up gastrin level along with other blood work ordered by oncologist. She will be seen by oncologist next month and she will follow-up with us in 3 months. I have examined the patient and the H&P has been reviewed. There are no clinical changes since date of exam.
[2023-03-08 08:29] VITALS: BP 134/87; BP 85/62; PULSE 65; RESP 16; TEMP 36.3; O2SAT 92
[2023-03-08 08:35] VITALS: BP 134/87; BP 85/60; PULSE 65; RESP 16; O2SAT 92
--- NOTE | 2023-03-08 08:36 | OP.CCLET_ITS ---
03/08/2023 Urbano Merrill Re : Upper GI endoscopy procedure for Xiomara Zapien Dear Keven This procedure was performed on March. My impressions and recommendations are as follows: Impressions : - Z-line irregular, 39 cm from the incisors. Biopsied. - Small hiatal hernia. - Scar in the gastric body. Biopsied. Treated with radiofrequency ablation. - Duodenitis. Biopsied. Recommendations : - Discharge patient to home. - Resume previous diet. - Continue present medications. - Await pathology results. My findings are described in the full procedure note, which is enclosed. If I can be of further assistance, please feel free to contact me at . Sincerely, Montrell Durant, 03/08/2023 8:36:01 AM This report has been signed electronically.
--- NOTE | 2023-03-08 08:36 | OP.EGD_ITS ---
Patient Name: Xiomara Zapien Procedure Date: 03/08/2023 8:00 AM Date of : 1955 Age: 67 Procedure: Upper GI endoscopy Indications: Surveillance procedure, Dyspepsia, Gastritis, Gastric mucosal hypertrophy, Personal history of peptic ulcer disease Providers: Montrell Durant DO Referring MD: Montrell Durant DO Medicines: Monitored Anesthesia Care Patient Profile: This is a 67 year old female. Refer to note in patient chart for documentation of history and physical. Patient has symptoms of chronic abdominal cramping and chronic nausea. Complications: No immediate complications. Procedure: Pre-Anesthesia Assessment: - Prior to the procedure, a History and Physical was performed, and patient medications and allergies were reviewed. The patient is competent. The risks and benefits of the procedure and the sedation options and risks were discussed with the patient. All questions were answered and informed consent was obtained. Patient identification and proposed procedure were verified by the physician in the pre-procedure area. Mental Status Examination: alert and oriented. Airway Examination: normal oropharyngeal airway and neck mobility. Respiratory Examination: clear to auscultation. CV Examination: normal. Prophylactic Antibiotics: The patient does not require prophylactic antibiotics. Prior Anticoagulants: The patient has taken no anticoagulant or antiplatelet agents. ASA Grade Assessment: III - A patient with severe systemic disease. After reviewing the risks and benefits, the patient was deemed in satisfactory condition to undergo the procedure. The anesthesia plan was to use monitored anesthesia care (MAC). Immediately prior to administration of medications, the patient was re-assessed for adequacy to receive sedatives. The heart rate, respiratory rate, oxygen saturations, blood pressure, adequacy of pulmonary ventilation, and response to care were monitored throughout the procedure. The physical status of the patient was re-assessed after the procedure. After obtaining informed consent, the endoscope was passed under direct vision. Throughout the procedure, the patient's blood pressure, pulse, and oxygen saturations were monitored continuously. The Endoscope was introduced through the mouth, and advanced to the second part of duodenum. The upper GI endoscopy was accomplished without difficulty. The patient tolerated the procedure well. Scope In: 8:08:53 AM Scope Out: 8:23:12 AM Total Procedure Duration Time 0 hours 14 minutes 19 seconds Findings: The Z-line was irregular and was found 39 cm from the incisors. Biopsies were taken with a cold forceps for histology. Verification of patient identification for the specimen was done. Estimated blood loss was minimal. A small hiatal hernia was present. A 5 mm post ablation treatment was found in the gastric body. There was residual polypoid tissue. Biopsies were taken with a cold forceps for histology. Focal radiofrequency ablation of gastric neuroendocrine tumor in the stomach was performed. Ablation sites were located at 48 cm from the incisors. With the endoscope in place, the position and extent of the abnormal mucosa and appropriate anatomic landmarks were noted. The abnormal mucosa was irrigated with water. Gastric contents were suctioned. The radiofrequency channel ablation catheter was introduced through the endoscope working channel. The endoscope with the ablation catheter was advanced to the areas of abnormal mucosa. The endoscope with the channel ablation catheter was positioned under direct visualization so that the catheter was placed in contact with the surface of the abnormal mucosa. Energy was applied twice at 12 J/cm2. Ablation was repeated in a likewise fashion to all remaining visible abnormal mucosa. The channel ablation catheter was then removed through the endoscope working channel, and the ablation catheter was cleaned. The endoscope was left in place. The ablation zone was cleaned of coagulative debris. The ablation catheter was reinserted into the endoscope working channel. A second round of ablation was then performed. Energy was applied twice at 12 J/cm2 to retreat the areas of abnormal mucosa that had been treated with the first series of ablation. The ablation catheter was removed through the endoscope working channel. The areas where abnormal mucosa had been ablated were examined. Areas of abnormal mucosa appeared completely ablated. The endoscope was then removed. Localized mild inflammation characterized by congestion (edema), friability and granularity was found in the duodenal bulb. Biopsies were taken with a cold forceps for histology. Verification of patient identification for the specimen was done. Estimated blood loss was minimal. Impression: - Z-line irregular, 39 cm from the incisors. Biopsied. - Small hiatal hernia. - Scar in the gastric body. Biopsied. Treated with radiofrequency ablation. - Duodenitis. Biopsied. Recommendation: - Discharge patient to home. - Resume previous diet. - Continue present medications. - Await pathology results. Procedure Code(s): --- Professional --- 84643, Esophagogastroduodenoscopy, flexible, transoral; with ablation of tumor(s), polyp(s), or other lesion(s) (includes pre- and post-dilation and guide wire passage, when performed) 25891, 59, Esophagogastroduodenoscopy, flexible, transoral; with biopsy, single or multiple CPT copyright 2021 [employer]. All rights reserved. The codes documented in this report are preliminary and upon cutting and splicing supervisor review may be revised to meet current compliance requirements. Montrell Durant DO 03/08/2023 8:36:01 AM This report has been signed electronically. Number of Addenda: 0 Note Initiated On: 03/08/2023 8:00 AM
[2023-03-08 08:40] VITALS: BP 113/69; BP 134/87; PULSE 64; RESP 16; O2SAT 92
[2023-03-08 08:44] VITALS: BP 113/75; BP 134/87; PULSE 67; RESP 16; TEMP 36.7; O2SAT 94
[2023-03-08 09:04] VITALS: BP 134/87
== END 2023-03-08 09:15 | disposition home or self-care (01) ==
LOC: EN 06:59 → AC 07:01
PROVIDERS: Visit Provider Internal Medicine Gastroenterology
PROC: 0DJ08ZZ Inspection of Upper Intestinal Tract, Via Natural or Artificial Opening Endoscopic (ICD-10-PCS; CPT 43235; principal; 2023-03-08 07:55)
DX: D3A.8 Other benign neuroendocrine tumors (principal); I48.0 Paroxysmal atrial fibrillation; E11.9 Type 2 diabetes mellitus without complications; K31.A11 Gastric intestinal metaplasia without dysplasia, involving the antrum; Z87.891 Personal history of nicotine dependence; K44.9 Diaphragmatic hernia without obstruction or gangrene; E16.4 Increased secretion of gastrin; K22.70 Barrett's esophagus without dysplasia; Z79.01 Long term (current) use of anticoagulants; Z79.899 Other long term (current) drug therapy; Z79.84 Long term (current) use of oral hypoglycemic drugs; I10 Essential (primary) hypertension; E78.5 Hyperlipidemia, unspecified; Z90.49 Acquired absence of other specified parts of digestive tract
CPT/HCPCS: 43270; 43239; 36416; 81002; 82962; 85610; 88305; 88313; 88341; 88342; J7120; J2405

== ENCOUNTER 2023-03-23 13:10 | Outpatient (RCR) | payer MEDICARE, OTHER, SELFPAY ==
[2023-03-16 13:16] LABS: International Normalized Ratio 1.7; Prothrombin Time (Protime)PT. 19.9 SECONDS (11.7-14.9)
[2023-03-23 13:52] LABS: International Normalized Ratio 2.4; Prothrombin Time (Protime)PT. 26.3 SECONDS (11.7-14.9)
== END 2023-03-23 18:00 | disposition home or self-care (01) ==
LOC: LAB 13:10
PROVIDERS: Referring Provider Internal Medicine Cardiovascular Disease; Visit Provider Internal Medicine Cardiovascular Disease
DX: I48.0 Paroxysmal atrial fibrillation (principal); Z79.01 Long term (current) use of anticoagulants
CPT/HCPCS: 36415; 85610

== ENCOUNTER 2023-04-19 13:09 | Outpatient (RCR) | payer MEDICARE, OTHER, SELFPAY ==
[2023-04-19 13:48] LABS: International Normalized Ratio 2.7; Prothrombin Time (Protime)PT. 29.4 SECONDS (11.7-14.9)
== END 2023-05-03 18:00 | disposition home or self-care (01) ==
LOC: LAB 13:09
PROVIDERS: Referring Provider Internal Medicine Cardiovascular Disease; Visit Provider Internal Medicine Cardiovascular Disease
DX: I48.0 Paroxysmal atrial fibrillation (principal); Z79.01 Long term (current) use of anticoagulants
CPT/HCPCS: 36415; 85610

== ENCOUNTER 2023-05-18 10:01 | Outpatient (RCR) | payer MEDICARE, OTHER, SELFPAY ==
[2023-05-18 11:07] LABS: Prothrombin Time (Protime)PT. 31.3 SECONDS (11.7-14.9)
== END 2023-06-03 18:00 | disposition home or self-care (01) ==
LOC: LAB 10:01
PROVIDERS: Referring Provider Internal Medicine Cardiovascular Disease; Visit Provider Internal Medicine Cardiovascular Disease
DX: I48.0 Paroxysmal atrial fibrillation (principal); Z79.01 Long term (current) use of anticoagulants
CPT/HCPCS: 36415; 85610

== ENCOUNTER 2023-06-27 12:27 | Outpatient (RCR) | payer MEDICARE, OTHER, SELFPAY ==
[2023-06-27 13:20] LABS: International Normalized Ratio 2.9; Prothrombin Time (Protime)PT. 30.3 SECONDS (11.7-14.9)
[2023-07-03 17:07] LABS: Anti-Parietal Cell AB, QN 109.8 Units (0.0-20.0); Intrinsic Factor Ab 1.7 AU/mL (0.0-1.1)
== END 2023-06-27 18:00 | disposition home or self-care (01) ==
LOC: LAB 12:27
PROVIDERS: Internal Medicine Gastroenterology; Referring Provider Internal Medicine Cardiovascular Disease; Visit Provider Internal Medicine Cardiovascular Disease
DX: I48.0 Paroxysmal atrial fibrillation (principal); Z79.01 Long term (current) use of anticoagulants; R19.7 Diarrhea, unspecified
CPT/HCPCS: 36415; 83516; 85610; 86340

== ENCOUNTER 2023-07-25 11:58 | Outpatient (RCR) | payer MEDICARE, OTHER, SELFPAY ==
[2023-07-25 12:39] LABS: International Normalized Ratio 3.1; Prothrombin Time (Protime)PT. 32.6 SECONDS (11.7-14.9)
== END 2023-08-02 18:00 | disposition home or self-care (01) ==
LOC: LAB 11:58
PROVIDERS: Referring Provider Internal Medicine Cardiovascular Disease; Visit Provider Internal Medicine Cardiovascular Disease
DX: I48.0 Paroxysmal atrial fibrillation (principal); Z79.01 Long term (current) use of anticoagulants
CPT/HCPCS: 36415; 85610

== ENCOUNTER 2023-08-09 12:26 | Outpatient (RCR) | payer MEDICARE, OTHER, SELFPAY ==
[2023-08-09 13:27] LABS: International Normalized Ratio 2.3; Prothrombin Time (Protime)PT. 25.3 SECONDS (11.7-14.9)
== END 2023-09-02 01:06 | disposition home or self-care (01) ==
LOC: LAB 12:26
PROVIDERS: Referring Provider Internal Medicine Cardiovascular Disease; Visit Provider Internal Medicine Cardiovascular Disease
DX: I48.0 Paroxysmal atrial fibrillation (principal); Z79.01 Long term (current) use of anticoagulants
CPT/HCPCS: 36415; 85610

== ENCOUNTER 2023-09-17 12:08 | Outpatient (RCR) | payer MEDICARE, OTHER, SELFPAY ==
[2023-09-07 11:59] LABS: International Normalized Ratio 1.7; Prothrombin Time (Protime)PT. 20.3 SECONDS (11.7-14.9)
[2023-09-17 13:23] LABS: International Normalized Ratio 2.5; Prothrombin Time (Protime)PT. 27.2 SECONDS (11.7-14.9)
== END 2023-10-02 23:41 | disposition home or self-care (01) ==
LOC: LAB 12:08
PROVIDERS: Referring Provider Internal Medicine Cardiovascular Disease; Visit Provider Internal Medicine Cardiovascular Disease
DX: I48.0 Paroxysmal atrial fibrillation (principal); Z79.01 Long term (current) use of anticoagulants
CPT/HCPCS: 36415; 85610

== ENCOUNTER 2023-10-11 12:16 | Outpatient (RCR) | payer MEDICARE, OTHER, SELFPAY ==
[2023-10-11 12:43] LABS: International Normalized Ratio 3.2; Prothrombin Time (Protime)PT. 32.2 SECONDS (11.7-14.9)
== END 2023-10-30 18:00 | disposition home or self-care (01) ==
LOC: LAB 12:16
PROVIDERS: Referring Provider Internal Medicine Cardiovascular Disease; Visit Provider Internal Medicine Cardiovascular Disease
DX: I48.0 Paroxysmal atrial fibrillation (principal); Z79.01 Long term (current) use of anticoagulants
CPT/HCPCS: 36415; 85610

== ENCOUNTER → 2023-11-02 | Outpatient (CLI) | payer MEDICARE, OTHER, SELFPAY ==
--- NOTE | 2023-11-02 16:55 | CT_ITS ---
INDICATION: follow-up carotid stenosis EXAMINATION: CTA CAROTIDS AND BRAIN - CTA Neck WO/W Contrast Injection TECHNIQUE: Routine CTA of the head and neck was performed with post processing of the angiographic images for volumetric reconstructions. In addition, images were obtained of the [place]. [place] criteria using the distal ICAs for comparison were used for evaluation of stenoses. 3D reconstructions were reviewed. A radiation dose optimization technique was used for this scan. IV Contrast dosage and agent: 100 mL Isovue-300 COMPARISON: CTA neck September 21, 2022. FINDINGS: --NECK: AORTIC ARCH AND BRANCHES: Aortic atherosclerosis without dissection or ectasia in the limited study [id number].. RIGHT CCA: No occlusion, significant stenosis or dissection. RIGHT ICA: Mild proximal ICA atherosclerosis. No occlusion, significant stenosis or dissection. LEFT CCA: Minimal calcified atherosclerosis. No occlusion, significant stenosis or dissection. LEFT ICA: Bulky atherosclerosis with 60% stenosis of the left ICA origin. Remainder of the left ICA is widely patent. RIGHT VERTEBRAL ARTERY: No occlusion, significant stenosis or dissection. LEFT VERTEBRAL ARTERY: No occlusion, significant stenosis or dissection. NECK SOFT TISSUES: Unremarkable. LUNG APICES: Lateral left apical 3 mm nodule, axial image 41.. BONES: Mild scattered pansinus mucoperiosteal thickening.. --HEAD: --Anterior circulation: ICAs: Mild bilateral cavernous carotid atherosclerosis without flow-limiting stenosis ACAs: No significant stenosis at the visualized segments. ACOM: Present. MCAs: No significant stenosis at the visualized segments. --Posterior circulation: PCOMs: Intact on the right. Diminutive but likely intact on the left. tele marketing executive: No significant stenosis at the visualized segments. BASILAR ARTERY: No significant stenosis. VERTEBRAL ARTERIES: Minimal left intracranial atherosclerosis. No significant stenosis at the intradural/visualized segments. No evidence of intracranial aneurysm or vascular malformation. CT/CTA Neck W/WO Contrast IMPRESSION: 60% stenosis of the left proximal ICA. Other scattered mild atherosclerosis as above. Electronically Signed: Markie Bolden MD at 23:06 EDT ,
[2023-11-02 17:30] LABS: CREATININE FINGERSTICK 1.2 mg/dL (0.55-1.02)
== END | disposition home or self-care (01) ==
LOC: CT 16:54
PROVIDERS: Referring Provider Psychiatry & Neurology Neurology; Visit Provider Psychiatry & Neurology Neurology
DX: I65.22 Occlusion and stenosis of left carotid artery (principal); I62.9 Nontraumatic intracranial hemorrhage, unspecified
CPT/HCPCS: 70498; Q9967

== ENCOUNTER → 2023-11-06 | Outpatient (CLI) | payer MEDICARE, OTHER, SELFPAY ==
--- NOTE | 2023-11-06 12:51 | CDU_ITS ---
Reason For Study: left carotid stenosis Rt. Velocities/BP Lt. Velocities/BP Prox CCA 79.6/19.2 cm/sec. Prox CCA 78.7/21.1 cm/sec. Mid CCA 69.2/15.4 cm/sec. Mid CCA 50.4/13.5 cm/sec. Dist CCA 59.8/17.3 cm/sec. Dist CCA 50.4/13.5 cm/sec. Prox ICA 50.4/18.2 cm/sec. Prox ICA 239.2/75.9 cm/sec. Mid ICA 57.0/21.1 cm/sec. Mid ICA 135.7/20.6 cm/sec. Dist ICA 86.3/33.3 cm/sec. Dist ICA 99.2/26.1 cm/sec. Rt. ICA/CCA = 1.2. Lt. ICA/CCA = 4.8. Prox ECA 54.1/10.7 cm/sec. Prox ECA 200.4/26.7 cm/sec. Rt. Vert. 45.6/9.7 cm/sec. Lt. Vert. 57.0/17.3 cm/sec. Right Extracranial There is intimal thickening but no significant atherosclerotic plaque noted in the right common carotid artery. There is heterogeneous, irregular atherosclerotic plaque noted in the right internal carotid artery. There is heterogeneous, irregular atherosclerotic plaque noted in the right external carotid artery. Antegrade flow is noted in the right vertebral artery. Left Extracranial There is heterogeneous, irregular atherosclerotic plaque noted in the left common carotid artery. There is heterogeneous, irregular atherosclerotic plaque noted in the left internal carotid artery. There is heterogeneous, irregular atherosclerotic plaque noted in the left external carotid artery. Antegrade flow is noted in the left vertebral artery. Procedure Carotid Duplex [id number]. This is a Carotid Duplex examination using B-mode, color flow and specral Doppler. The exam was diagnostic. Exam performed in department. Prelim called to Dr. Mitchell's office. VL/Carotid Duplex Ultrasound Interpretation Summary Irregular heterogenous plaque at the proximal right internal carotid artery wit h less than 50% stenosis Less than 50% stenosis right external carotid artery Irregular calcific plaque with extensive shadowing at the proximal left interna l carotid artery with greater than 70% stenosis Greater than 50% stenosis left external carotid artery Patent and antegrade vertebral arteries bilaterally Findings suggest slight progression of disease involving the left internal and external carotid arteries from a previous examination of August 24, 2022 Ordering Physician: Ronak Mitchell Referring Physician: Ronak Mitchell Performed By: George Corral RVT
== END | disposition home or self-care (01) ==
LOC: CVS 12:51
PROVIDERS: Referring Provider Psychiatry & Neurology Neurology; Visit Provider Psychiatry & Neurology Neurology
DX: I65.22 Occlusion and stenosis of left carotid artery (principal)
CPT/HCPCS: 93880

== ENCOUNTER → 2023-11-08 | Outpatient (CLI) | payer MEDICARE, OTHER, SELFPAY ==
--- NOTE | 2023-11-08 15:27 | BI_ITS ---
MAMMOGRAPHY - BILATERAL SCREENING REASON FOR EXAM: Female, 68 years old. Routine annual screening examination. PERTINENT HISTORY: Mother with breast cancer. Aunt with breast cancer. Remote right excisional breast biopsy and right stereotactic breast biopsy. TECHNIQUE: Digital bilateral breast sunil (3D mammographic acquisition) in the CC and MLO projections. 2-D mediolateral oblique (MLO) and craniocaudad (CC) views of both breasts were obtained. CAD: Full Field Digital Mammography with Computer Added Detection was performed. COMPARISON: Comparison is made with prior study dated September 03, 2018 and February 15, 2017. FINDINGS: Breast Composition: There are scattered areas of fibroglandular density. There are no dominant masses or suspicious calcifications. A tissue clip marker is once again seen in the upper lateral aspect of the right breast. INDICATION: As also seen in the superior retroareolar region of the right breast. Stable small right axillary lymph nodes. No other significant abnormalities are identified. There has been no significant change since the prior study. BI/SCRN MAMM (CAD)W/SUNIL BILAT IMPRESSION: Stable bilateral screening mammogram. Yearly follow-up mammogram recommended. (A) ASSESSMENT CATEGORY: BIRADS Category 2: Benign. A letter regarding these results will be sent to the patient by the facility within 30 days. Approximately 10% of breast cancers are not detected by mammography. A normal mammogram should not delay biopsy of a clinically suspicious abnormality. [id number] Electronically Signed: Ej Mckeon MD at 8:29 EDT ,
--- NOTE | 2023-11-08 15:41 | US_ITS ---
EXAM: US SOFT TISSUES OF THE NECK CLINICAL INDICATION: NECK SWELLING TECHNIQUE: Real-time ultrasound scan of the soft tissues of the neck with image documentation. COMPARISON: No relevant prior studies available. FINDINGS: SOFT TISSUES: Normal. No abscess. No foreign body. LYMPH NODES: Unremarkable as visualized. US/Head/Neck Soft Tissue IMPRESSION: Normal ultrasound of the neck. Electronically Signed: Max Page MD at 8:49 EDT ,
== END | disposition home or self-care (01) ==
LOC: OPBI 15:19
DX: Z12.31 Encounter for screening mammogram for malignant neoplasm of breast (principal)
CPT/HCPCS: 76536; 77063; 77067

== ENCOUNTER 2023-11-16 09:25 | Outpatient (RCR) | payer MEDICARE, OTHER, SELFPAY ==
[2023-11-16 10:30] LABS: International Normalized Ratio 2.1; Prothrombin Time (Protime)PT. 23.1 SECONDS (11.7-14.9)
== END 2023-11-16 18:00 | disposition home or self-care (01) ==
LOC: LAB 09:25
PROVIDERS: Referring Provider Internal Medicine Cardiovascular Disease; Visit Provider Internal Medicine Cardiovascular Disease
DX: I48.0 Paroxysmal atrial fibrillation (principal); Z79.01 Long term (current) use of anticoagulants
CPT/HCPCS: 36415; 85610

== ENCOUNTER 2023-12-24 13:14 | Outpatient (RCR) | payer MEDICARE, OTHER, SELFPAY ==
[2023-12-07 12:33] LABS: International Normalized Ratio 1.9; Prothrombin Time (Protime)PT. 21.4 SECONDS (11.7-14.9)
[2023-12-24 14:08] LABS: International Normalized Ratio 2.3; Prothrombin Time (Protime)PT. 25.5 SECONDS (11.7-14.9)
== END 2024-01-02 18:00 | disposition home or self-care (01) ==
LOC: LAB 13:14
PROVIDERS: Referring Provider Internal Medicine Cardiovascular Disease; Visit Provider Internal Medicine Cardiovascular Disease
DX: I48.0 Paroxysmal atrial fibrillation (principal); Z79.01 Long term (current) use of anticoagulants; D50.8 Other iron deficiency anemias; E16.4 Increased secretion of gastrin; Z86.73 Personal history of transient ischemic attack (TIA), and cerebral infarction without residual deficits
CPT/HCPCS: 36415; 85610

== ENCOUNTER 2024-02-21 11:57 | Outpatient (RCR) | payer MEDICARE, OTHER, SELFPAY ==
[2024-02-21 13:06] LABS: International Normalized Ratio 2.9; Prothrombin Time (Protime)PT. 30.3 SECONDS (11.7-14.9)
== END 2024-02-21 18:00 | disposition home or self-care (01) ==
LOC: LAB 11:57
PROVIDERS: Referring Provider Internal Medicine Cardiovascular Disease; Visit Provider Internal Medicine Cardiovascular Disease
DX: I48.0 Paroxysmal atrial fibrillation (principal); Z79.01 Long term (current) use of anticoagulants
CPT/HCPCS: 36415; 85610

== ENCOUNTER 2024-03-27 12:28 | Outpatient (RCR) | payer MEDICARE, OTHER, SELFPAY ==
[2024-03-20 13:58] LABS: International Normalized Ratio 4.1; Prothrombin Time (Protime)PT. 39.3 SECONDS (11.7-14.9)
[2024-03-27 13:12] LABS: International Normalized Ratio 2.6; Prothrombin Time (Protime)PT. 27.3 SECONDS (11.7-14.9)
== END 2024-03-27 18:00 | disposition home or self-care (01) ==
LOC: LAB 12:28
PROVIDERS: Referring Provider Internal Medicine Cardiovascular Disease; Visit Provider Internal Medicine Cardiovascular Disease
DX: Z79.01 Long term (current) use of anticoagulants
CPT/HCPCS: 36415; 85610

== ENCOUNTER 2024-04-17 13:51 | Outpatient (RCR) | payer MEDICARE, OTHER, SELFPAY ==
[2024-04-17 14:19] LABS: International Normalized Ratio 2.2; Prothrombin Time (Protime)PT. 23.9 SECONDS (11.7-14.9)
== END 2024-05-03 18:00 | disposition home or self-care (01) ==
LOC: LAB 13:51
PROVIDERS: Referring Provider Internal Medicine Cardiovascular Disease; Visit Provider Internal Medicine Cardiovascular Disease
DX: Z79.01 Long term (current) use of anticoagulants
CPT/HCPCS: 36415; 85610

== ENCOUNTER 2024-05-13 10:19 | Outpatient (RCR) | payer MEDICARE, OTHER, SELFPAY ==
[2024-05-13 11:08] LABS: International Normalized Ratio 2.8; Prothrombin Time (Protime)PT. 29.5 SECONDS (11.7-14.9)
== END 2024-05-13 18:00 | disposition home or self-care (01) ==
LOC: LAB 10:19
PROVIDERS: Referring Provider Internal Medicine Cardiovascular Disease; Visit Provider Internal Medicine Cardiovascular Disease
DX: I48.0 Paroxysmal atrial fibrillation (principal); Z79.01 Long term (current) use of anticoagulants

== ENCOUNTER 2024-06-12 13:24 | Outpatient (RCR) | payer MEDICARE, OTHER, SELFPAY ==
[2024-06-12 14:30] LABS: Prothrombin Time (Protime)PT. 31.6 SECONDS (11.7-14.9)
== END 2024-06-12 18:00 | disposition home or self-care (01) ==
LOC: LAB 13:24
PROVIDERS: Referring Provider Internal Medicine Cardiovascular Disease; Visit Provider Internal Medicine Cardiovascular Disease
DX: Z79.01 Long term (current) use of anticoagulants
CPT/HCPCS: 36415; 85610

== ENCOUNTER 2024-07-15 12:30 | Outpatient (RCR) | payer MEDICARE, OTHER, SELFPAY ==
[2024-07-15 13:14] LABS: International Normalized Ratio 2.7; Prothrombin Time (Protime)PT. 29.6 SECONDS (11.7-14.9)
== END 2024-08-01 18:00 | disposition home or self-care (01) ==
LOC: LAB 12:30
PROVIDERS: Referring Provider Internal Medicine Cardiovascular Disease; Visit Provider Internal Medicine Cardiovascular Disease
DX: I48.0 Paroxysmal atrial fibrillation (principal); Z79.01 Long term (current) use of anticoagulants
CPT/HCPCS: 36415; 85610

== ENCOUNTER 2024-08-19 13:34 | Outpatient (RCR) | payer MEDICARE, OTHER, SELFPAY ==
[2024-08-19 14:21] LABS: International Normalized Ratio 2.6; Prothrombin Time (Protime)PT. 28.4 SECONDS (11.7-14.9)
== END 2024-08-19 18:00 | disposition home or self-care (01) ==
LOC: LAB 13:34
PROVIDERS: Referring Provider Internal Medicine Cardiovascular Disease; Visit Provider Internal Medicine Cardiovascular Disease
DX: I48.0 Paroxysmal atrial fibrillation (principal); Z79.01 Long term (current) use of anticoagulants
CPT/HCPCS: 36415; 85610

== ENCOUNTER 2024-10-01 13:47 | Outpatient (RCR) | payer MEDICARE, OTHER, SELFPAY ==
[2024-09-16 14:12] LABS: International Normalized Ratio 3.3
[2024-10-01 14:33] LABS: International Normalized Ratio 2.8
== END 2024-10-01 18:00 | disposition home or self-care (01) ==
LOC: LAB 13:47
PROVIDERS: Referring Provider Internal Medicine Cardiovascular Disease; Visit Provider Internal Medicine Cardiovascular Disease
DX: I48.0 Paroxysmal atrial fibrillation (principal); Z79.01 Long term (current) use of anticoagulants
CPT/HCPCS: 36415; 85610

== ENCOUNTER 2024-10-30 11:52 | Outpatient (RCR) | payer MEDICARE, OTHER, SELFPAY ==
[2024-10-30 13:52] LABS: International Normalized Ratio 2.7; Prothrombin Time (Protime)PT. 29.3 SECONDS (11.7-14.9)
== END 2024-10-30 18:00 | disposition home or self-care (01) ==
LOC: LAB 11:52
PROVIDERS: Referring Provider Internal Medicine Cardiovascular Disease; Visit Provider Internal Medicine Cardiovascular Disease
DX: Z79.01 Long term (current) use of anticoagulants
CPT/HCPCS: 36415; 85610

== ENCOUNTER 2024-11-27 09:46 | Outpatient (RCR) | payer MEDICARE, OTHER, SELFPAY ==
[2024-11-27 11:23] LABS: International Normalized Ratio 2.3; Prothrombin Time (Protime)PT. 26.1 SECONDS (11.7-14.9)
== END 2024-11-27 18:00 | disposition home or self-care (01) ==
LOC: LAB 09:46
PROVIDERS: Referring Provider Internal Medicine Cardiovascular Disease; Visit Provider Internal Medicine Cardiovascular Disease
DX: Z79.01 Long term (current) use of anticoagulants
CPT/HCPCS: 36415; 85610

== ENCOUNTER 2024-12-25 11:28 | Outpatient (RCR) | payer MEDICARE, OTHER, SELFPAY ==
[2024-12-25 12:16] LABS: Prothrombin Time (Protime)PT. 24.6 SECONDS (11.7-14.9)
== END 2025-01-01 21:19 | disposition home or self-care (01) ==
LOC: LAB 11:28
PROVIDERS: Referring Provider Internal Medicine Cardiovascular Disease; Visit Provider Internal Medicine Cardiovascular Disease
DX: I48.0 Paroxysmal atrial fibrillation (principal); Z79.01 Long term (current) use of anticoagulants
CPT/HCPCS: 36415; 85610

== ENCOUNTER 2025-01-28 11:59 | Outpatient (RCR) | payer MEDICARE, OTHER, SELFPAY ==
[2025-01-28 13:14] LABS: Prothrombin Time (Protime)PT. 26.6 SECONDS (11.7-14.9)
== END 2025-01-28 18:00 | disposition home or self-care (01) ==
LOC: LAB 11:59
PROVIDERS: Referring Provider Internal Medicine Cardiovascular Disease; Visit Provider Internal Medicine Cardiovascular Disease
DX: Z79.01 Long term (current) use of anticoagulants
CPT/HCPCS: 36415; 85610

== ENCOUNTER 2025-02-20 11:52 | Outpatient (RCR) | payer MEDICARE, OTHER, SELFPAY ==
[2025-02-20 12:44] LABS: Prothrombin Time (Protime)PT. 27.4 SECONDS (11.7-14.9)
== END 2025-03-03 18:00 | disposition home or self-care (01) ==
LOC: LAB 11:52
PROVIDERS: Referring Provider Internal Medicine Cardiovascular Disease; Visit Provider Internal Medicine Cardiovascular Disease
DX: Z79.01 Long term (current) use of anticoagulants
CPT/HCPCS: 36415; 85610

== ENCOUNTER 2025-03-26 13:11 | Outpatient (RCR) | payer MEDICARE, OTHER, SELFPAY ==
[2025-03-26 14:21] LABS: Prothrombin Time (Protime)PT. 26.2 SECONDS (11.7-14.9)
== END 2025-03-26 18:00 | disposition home or self-care (01) ==
LOC: LAB 13:11
PROVIDERS: Referring Provider Internal Medicine Cardiovascular Disease; Visit Provider Internal Medicine Cardiovascular Disease
DX: I48.0 Paroxysmal atrial fibrillation (principal); Z79.01 Long term (current) use of anticoagulants
CPT/HCPCS: 36415; 85610

== ENCOUNTER 2025-04-23 11:02 | Outpatient (RCR) | payer MEDICARE, OTHER, SELFPAY ==
[2025-04-23 12:36] LABS: Prothrombin Time (Protime)PT. 26.7 SECONDS (11.7-14.9)
== END 2025-05-03 18:00 | disposition home or self-care (01) ==
LOC: LAB 11:02
PROVIDERS: Nurse Practitioner Gerontology; Referring Provider Internal Medicine Cardiovascular Disease; Visit Provider Internal Medicine Cardiovascular Disease
DX: Z79.01 Long term (current) use of anticoagulants (principal); I48.0 Paroxysmal atrial fibrillation
CPT/HCPCS: 36415; 85610

== ENCOUNTER → 2025-05-04 | Outpatient (CLI) | payer MEDICARE, OTHER, SELFPAY ==
--- NOTE | 2025-05-04 12:52 | CDU_ITS ---
Reason For Study Reason For Study: Left ICA stenosis Rt. Velocities/BP Lt. Velocities/BP Prox CCA 92.9/22 cm/sec. Prox CCA 59.7/17.9 cm/sec. Mid CCA 87.2/20.1 cm/sec. Mid CCA 44.3/13.5 cm/sec. Dist CCA 60.7/18.2 cm/sec. Dist CCA 60.8/16.8 cm/sec. Prox ICA 59.8/16.3 cm/sec. Prox ICA 240.2/65.6 cm/sec. Mid ICA 86.3/30.5 cm/sec. Mid ICA 123.6/27 cm/sec. Dist ICA 81.7/26.7 cm/sec. Dist ICA 76.5/24.9 cm/sec. Rt. ICA/CCA = 0.99. Lt. ICA/CCA = 5.42. Prox ECA 57/8.8 cm/sec. Prox ECA 93.7/12.7 cm/sec. Rt. Vert. 56.4/11.3 cm/sec. Lt. Vert. 50./14.5 cm/sec. Right Extracranial There is intimal thickening but no significant atherosclerotic plaque noted in the right common carotid artery. There is heterogeneous, irregular atherosclerotic plaque noted in the right internal carotid artery. There is heterogeneous, irregular atherosclerotic plaque noted in the right external carotid artery. Antegrade flow is noted in the right vertebral artery. Left Extracranial There is heterogeneous, irregular atherosclerotic plaque noted in the left common carotid artery. There is heterogeneous, irregular atherosclerotic plaque noted in the left internal carotid artery. There is heterogeneous, irregular atherosclerotic plaque noted in the left external carotid artery. The left external carotid artery is not well visualized. Antegrade flow is noted in the left vertebral artery. Procedure Carotid Duplex [id number]. This is a Carotid Duplex examination using B-mode, color flow and specral Doppler. Exam performed in department. VL/Carotid Duplex Ultrasound Interpretation Summary Mild (<50%) stenosis right extracranial internal carotid. Severe (>70%) stenosi s left extracranial internal carotid. Flow within the vertebral arteries is antegrade bilaterally. Ordering Physician: Ronak Mitchell Referring Physician: Brooke Baca Performed By: Chhaya Maldonado RVT
== END | disposition home or self-care (01) ==
LOC: CVS 12:51
PROVIDERS: Referring Provider Psychiatry & Neurology Neurology; Visit Provider Psychiatry & Neurology Neurology
DX: I65.22 Occlusion and stenosis of left carotid artery (principal)
CPT/HCPCS: 93880

== ENCOUNTER 2025-06-02 12:08 | Outpatient (RCR) | payer MEDICARE, OTHER, SELFPAY ==
[2025-05-21 11:37] LABS: Prothrombin Time (Protime)PT. 22.4 SECONDS (11.7-14.9)
[2025-06-02 12:41] LABS: Prothrombin Time (Protime)PT. 26.4 SECONDS (11.7-14.9)
== END 2025-06-02 18:00 | disposition home or self-care (01) ==
LOC: LAB 12:08
PROVIDERS: Referring Provider Internal Medicine Cardiovascular Disease; Visit Provider Internal Medicine Cardiovascular Disease
DX: I48.0 Paroxysmal atrial fibrillation (principal); Z79.01 Long term (current) use of anticoagulants
CPT/HCPCS: 36415; 85610